=== PATIENT | female | born 1950 | race Caucasian/White ===

== ENCOUNTER 2021-12-25 12:33 | Outpatient (CLI) | payer MEDICARE, SELFPAY ==
[2021-12-28 16:06] LABS: B. pertussis IgA < 1.0 index (0.0-0.9); B. pertussis IgM 1.4 index (0.0-0.9)
== END 2021-12-25 23:59 | disposition home or self-care (01) ==
PROVIDERS: PCP Family Medicine; Referring Provider Internal Medicine Pulmonary Disease; Visit Provider Internal Medicine Pulmonary Disease
DX: J47.9 Bronchiectasis, uncomplicated (principal)
CPT/HCPCS: 36415

== ENCOUNTER 2022-02-14 14:12 | Emergency (ER) | payer MEDICARE, SELFPAY ==
[2022-02-14 14:13] VITALS: BP 121/73; PULSE 65; RESP 14; TEMP 36.5; O2SAT 99; BMI 22.9
--- NOTE | 2022-02-14 14:41 | EKG12_ITS ---
Test Reason : GEN ILLNESS Blood Pressure : / mmHG Vent. Rate : 059 BPM Atrial Rate : 059 BPM P-R Int : 168 ms QRS Dur : 080 ms QT Int : 422 ms P-R-T Axes : 070 038 060 degrees QTc Int : 417 ms Sinus bradycardia Otherwise normal ECG Confirmed by JAYY HILL, MARLIN ([id number]), film and video editor BONNIE KING ([id number]) on 02/16/2022 1:03:38 PM Referred By: TRISTEN Confirmed By:YOBANI HOPE MD
--- NOTE | 2022-02-14 14:49 | EX.ED.DYSGE1 ---
HPI <Dr. Martha Ray MD - Last Filed: 02/14/22 23:32> History of Present Illness Chief Complaint: General Illness <JAMAR NICHOLAS - Last Filed: 02/14/22 18:22> History of Present Illness Informant: patient Onset/Context/Timing Onset: Weeks (3) Timing: Continuous Narrative Narrative: Patient presents secondary to complaints of generalized weakness and cough. Patient states she finished one week course of Zithromax on February 01 for cough and fever. Patient states she last had a fever on February 02, and has since had night sweats. Patient reports sputum to be clearing from green/blood clots and now only intermittent with her cough. Patient has not noticed color recently. Patient denies chest pain, but states It feels funny. Weak. Patient otherwise complains of headache, sinus pressure, decreased appetite, diarrhea, and nausea. Patient took acetaminophen at 1400 for body aches. Patient took Immodium last night, and last loose stool last night. [facility] <Dr. Martha Ray MD - Last Filed: 02/14/22 23:32> [facility] Medical History (Updated 02/14/22 @ 18:[address] Martha Ray MD) Asthma Back pain Bronchiectasis Hypertension SVT (supraventricular tachycardia) Allergy/AdvReac Type Severity Reaction Status Date / Time levofloxacin [From Levaquin] Allergy Other Verified 02/14/22 14:16 thimerosal Allergy Anaphylaxis Verified 02/14/22 14:16 Surgical History (Updated 02/14/22 @ 15:04 by JAMAR NICHOLAS) H/O: hysterectomy Hx of tonsillectomy Social History (Updated 02/14/22 @ 15:04 by JAMAR NICHOLAS) Smoking Status: Never smoker alcohol intake: never substance use type: does not use <JAMAR NICHOLAS - Last Filed: 02/14/22 18:22> ROS ED Constitutional Constitutional ED: Reports sweats Eyes Eyes: Denies change in vision ENT ENT ED: Denies ear pain, rhinorrhea or sore throat Cardiovascular Cardiovascular: Reports other Details: Funny feeling,Just feels weak ; Denies chest pain Respiratory/Chest Respiratory/Chest: Reports cough and sputum Gastrointestinal Gastrointestinal: Reports diarrhea and nausea Genitourinary Genitourinary ED: Denies dysuria or hematuria Musculoskeletal Musculoskeletal: Denies arthralgias or myalgias Integumentary Denies rash Neurologic Neurologic: Reports headache(s) and weakness Psychiatric Psychiatric: Reports anxiety Endocrine Endocrinology: Denies polyuria EXAM <Dr. Martha Ray MD - Last Filed: 02/14/22 23:32> Physical Exam Const Vital Signs: 02/14/22 14:13 02/14/22 14:59 02/14/22 17:25 Temperature 97.7 F L Temperature Source Oral Pulse Rate 65 59 L 66 Respiratory Rate 14 16 15 Respiratory Pattern Normal Blood Pressure 121/73 H 150/72 H 144/69 H Blood Pressure Mean 89 98 94 Pulse Ox 99 98 98 Oxygen Delivery Method Room Air Room Air Room Air <JAMAR NICHOLAS - Last Filed: 02/14/22 18:22> Physical Exam Const Vital Signs: 02/14/22 14:13 02/14/22 14:59 02/14/22 17:25 Temperature 97.7 F L Temperature Source Oral Pulse Rate 65 59 L 66 Respiratory Rate 14 16 15 Respiratory Pattern Normal Blood Pressure 121/73 H 150/72 H 144/69 H Blood Pressure Mean 89 98 94 Pulse Ox 99 98 98 Oxygen Delivery Method Room Air Room Air Room Air Positive well nourished and well developed General Appearance ED: well developed HEENT Reports TM's clear and moist mucous membranes Negative for trauma or tenderness Tympanic Membrane ED: Yes TM's clear Eyes PERRL and EOMs intact bilaterally Neck no lymphadenopathy and supple Chest Wall inspection of chest normal and palpation of chest normal Resp normal respiratory effort and clear to auscultation bilaterally Cardio regular rate, regular rhythm and no murmurs GI normal to inspection, nondistended, normoactive bowel sounds Palpation: soft Back/Spine no CVA tenderness Extremity normal to inspection General Extremety ED: Negative for edema or tenderness General Extremity: Negative for edema Neuro oriented x3 and CN's II-XII intact bilaterally Sensorium / Orientation: alert Motor Exam: general weakness Psych mental status grossly normal Mood & Affect: anxious Skin no rashes or lesions noted MDM <Dr. Martha Ray MD - Last Filed: 02/14/22 23:32> MDM Lab Data Labs: Laboratory Results - last 24 hr 02/14/22 02/14/22 15:12 15:22 WBC 6.3 RBC 4.54 Hgb 14.4 Hct 38.4 MCV 84.6 MCH 31.7 MCHC 37.5 H RDW Std Deviation 35.8 RDW Coeff of Hernandez 11.8 Plt Count 286 MPV 8.5 Immature Gran % (Auto) 0.800 Neut % (Auto) 71.0 H Lymph % (Auto) 17.6 L Brewster % (Auto) 9.8 Eos % (Auto) 0.6 Baso % (Auto) 0.2 Absolute Neuts (auto) 4.5 Absolute Lymphs (auto) 1.11 Nucleated RBC % 0 Sodium 128 L Potassium 3.6 Chloride 94 L Carbon Dioxide 27.0 Anion Gap 7 BUN 8 Creatinine 0.58 Estim Creat Clear Calc 40.81 Est GFR (MDRD) Af Amer 133 Est GFR (MDRD) Non-Af 110 BUN/Creatinine Ratio 13.9 Glucose 101 Calcium 9.6 Troponin I High Sens < 3 L Radiography Chest X-Ray - ED: 1 View, Read by ED Physician and Chronic Changes Diagnostic Testing: Clinical Impression(s) from Imaging Studies Chest X-Ray 02/14/22 15:10 IMPRESSION: Hyperinflation. The lungs are clear. Electronically Signed: Sanket Barnard MD at 15:22 EDT , Chest CTA 02/14/22 16:50 IMPRESSION: No CTA demonstrated pulmonary embolism or arterial dissection. Electronically Signed: Ailin Day MD at 17:59 EDT Reading Location ID and State: [facility] / [place] , Service support , Treatment and Re-Evaluation Narrative: Patient seen and evaluated with [employer]ENO[employer] student. I personally interviewed and examined the patient. I was involved in all aspects of patient's orders, interpretation of results, and treatment. Patient presents with URI-like symptoms since mid January. She completed a course of Zithromax in late January. She reports her last fever was on February 02. She continues to have cough with occasional chest tightness and body aches. She does feel short of breath. She reports having COVID in November. She does report to me that she had dark brown sputum with some bright red blood recently. Patient sitting upright in bed no acute distress. She is nontoxic-appearing. Head and neck examination unremarkable. Heart is regular rate and rhythm. Lung sounds are clear. Abdomen is soft nontender. Neuro exam normal. Extremities emanation shows no significant calf tenderness or edema. EKG, chest x-ray, lab work obtained. In light of the patient having dyspnea with hemoptysis CTA of the chest was obtained. This reveals no evidence of PE or infiltrate. Patient will continue supportive care. She is to follow-up with her primary care physician. <JAMAR NICHOLAS - Last Filed: 02/14/22 18:22> MDM MDM Narrative Medical decision making narrative: Patient placed on cardiac rehabilitation specialist. CBC, BMP, rapid flu ordered. Chest x-ray also ordered Lab Data Attestation: I reviewed the patient's lab results. Labs: Laboratory Results - last 24 hr 02/14/22 02/14/22 15:12 15:22 WBC 6.3 RBC 4.54 Hgb 14.4 Hct 38.4 MCV 84.6 MCH 31.7 MCHC 37.5 H RDW Std Deviation 35.8 RDW Coeff of Hernandez 11.8 Plt Count 286 MPV 8.5 Immature Gran % (Auto) 0.800 Neut % (Auto) 71.0 H Lymph % (Auto) 17.6 L Brewster % (Auto) 9.8 Eos % (Auto) 0.6 Baso % (Auto) 0.2 Absolute Neuts (auto) 4.5 Absolute Lymphs (auto) 1.11 Nucleated RBC % 0 Sodium 128 L Potassium 3.6 Chloride 94 L Carbon Dioxide 27.0 Anion Gap 7 BUN 8 Creatinine 0.58 Estim Creat Clear Calc 40.81 Est GFR (MDRD) Af Amer 133 Est GFR (MDRD) Non-Af 110 BUN/Creatinine Ratio 13.9 Glucose 101 Calcium 9.6 Troponin I High Sens < 3 L Radiography Chest X-Ray - ED: 1 View and No Infiltrates Diagnostic Testing: Clinical Impression(s) from Imaging Studies Chest X-Ray 02/14/22 15:10 IMPRESSION: Hyperinflation. The lungs are clear. Electronically Signed: Sanket Barnard MD at 15:22 EDT , Chest CTA 02/14/22 16:50 IMPRESSION: No CTA demonstrated pulmonary embolism or arterial dissection. Electronically Signed: Ailin Day MD at 17:59 EDT Reading Location ID and State: [address] [place] [address] , Service support , EKG Initial EKG: Attestation: I personally reviewed and interpreted this EKG as follows: Interpretation: Sinus Bradycardia (Rate of 59 without any signs of ischemia.) Discharge Plan Triage Chief Complaint: General Illness ED Provider: Martha Ray Dx/Rx/DC Orders Clinical Impression: Viral syndrome Instructions: ED Viral Syndrome (Adult) Primary Care Provider: Jose Espinal Referrals: Jose Espinal MD [Primary Care Provider] - 1-2 Weeks Disposition Disposition: Home, Self Care Discharge Date/Time: 02/14/22 18:35
--- NOTE | 2022-02-14 14:52 | NURSING ---
NO OLD EKGS
[2022-02-14 14:59] VITALS: BP 150/72; PULSE 59; RESP 16; O2SAT 98
--- NOTE | 2022-02-14 15:10 | RAD_ITS ---
STUDY: X-RAY CHEST REASON FOR EXAM: Female, 71 years old. Cough; chest burning TECHNIQUE: Single AP portable view of the chest. COMPARISON: None. FINDINGS: EKG electrodes are seen. Hyperinflation. The lungs are clear. There is no demonstrated pleural abnormality. Normal size heart. Normal mediastinum and rhonda. Normal visualized pulmonary arteries. Normal visualized aortic arch and descending thoracic aorta. There are diffuse degenerative changes of the visualized thoracic spine. Normal visualized ribs, clavicles, and shoulders. There is no demonstrated abnormality of the visualized soft tissue structures of the upper abdomen. RAD/Chest 1 View (Portable) IMPRESSION: Hyperinflation. The lungs are clear. Electronically Signed: Sanket Barnard MD at 15:22 EDT ,
[2022-02-14] MEDS: 0.9% Normal Saline 1,000 ML 150 ML IV (15:31)
[2022-02-14 15:33] LABS: Absolute Lymphocyte Count 1.11 X10^3/uL (0.83-4.51); Absolute Neutrophil Count 4.5 X10^3/uL (2.0-7.7); Basophil# 0.01 X10^3/uL; Basophil% 0.2 % (0-1); Eosinophil# 0.04 X10^3/uL; Eosinophils% 0.6 % (0-5); Hematocrit 38.4 % (37-47); Hemoglobin 14.4 g/dL (12.0-15.0); Lymphocyte # 1.11 X10^3/ul (0.83-4.51); Lymphocyte % 17.6 % (19-41); Mean Corp Hgb Conc 37.5 g/dL (32-36); Mean Corpuscular Hgb 31.7 pg (27.0-32.0); Mean Corpuscular Volume 84.6 fL (81-99); Mean Platelet Vol. 8.5 fl (6.2-12.0); Monocyte# 0.62 X10^3/uL; Monocyte% 9.8 % (0-10); NRBC Flagged by Analyzer 0 % (0-5); Neutrophil # 4.47 X10^3/uL (2.7-7.7); Platelet Count 286 K/mm3 (150-450); RBC Distribution Width CV 11.8 % (11.6-14.6); RBC Distribution Width SD 35.8 fl (35.1-43.9); Red Blood Count 4.54 M/mm3 (4.2-5.4); White Blood Count 6.3 K/mm3 (4.4-11.0)
[2022-02-14 15:45] LABS: Anion Gap 7 (5-15); BUN 8 mg/dL (7-18); BUN/Creat Ratio 13.9 RATIO (10-20); Calcium,Total 9.6 mg/dL (8.5-10.1); Chloride 94 mmol/L (98-107); Creatinine, Serum 0.58 mg/dL (0.55-1.02); EST Glomerular Filtration Rate 110 mL/min (>60); Est Glom Filt Rate - Afr Amer 133 mL/min (>60); Estimated Creatinine Clearance 40.81 ml/min; Glucose 101 mg/dL (74-106); Potassium 3.6 mmol/L (3.5-5.1); Sodium Level 128 mmol/L (136-145); Troponin-I HS < 3 pg/mL (3.0-54.0)
--- NOTE | 2022-02-14 16:50 | CT_ITS ---
STUDY: CTA CHEST REASON FOR EXAM: Female, 71 years old patient with hemoptysis. RADIATION DOSAGE (If Supplied By Facility): CTDIvol = ( 4.96 ) mGy, DLP = ( 147.30 ) mGycm TECHNIQUE: The examination was performed with the intravenous administration of 100 mL of Isovue-370. Post-processing of the angiographic images was performed, with multiplanar reformation and 3D reconstruction. Individualized dose optimization techniques were used for this CT. COMPARISON: Prior comparison studies are not available for review at this time. FINDINGS: Normal enhancement of the main pulmonary artery and right and left pulmonary arteries. Normal enhancement of the bilateral peripheral pulmonary arteries. There is no demonstrated pulmonary embolism. Normal thoracic aorta and visualized great vessels. There is no demonstrated aortic dissection. Normal heart and pericardium. There are calcifications of the coronary arteries. Normal mediastinum. Normal hilar regions. Normal visualized trachea and bronchi. The lungs are hyper expanded, with flattening of the hemidiaphragms. Normal pulmonary parenchyma. There appears to be bronchiectasis centrally. Normal pleura. Normal chest wall structures. There are degenerative changes of thoracic spine. The bones appear osteopenic. Normal visualized upper abdomen. CT/CTA Chest W/WO Contrast IMPRESSION: No CTA demonstrated pulmonary embolism or arterial dissection. Electronically Signed: Ailin Day MD at 17:59 EDT ,
[2022-02-14 17:25] VITALS: BP 144/69; PULSE 66; RESP 15; O2SAT 98
== END 2022-02-14 18:35 | disposition home or self-care (01) ==
PROVIDERS: Emergency Provider Emergency Medicine; PCP Family Medicine; Visit Provider Emergency Medicine
DX: B34.9 Viral infection, unspecified (principal); R11.0 Nausea; R19.7 Diarrhea, unspecified; R51.9 Headache, unspecified; I10 Essential (primary) hypertension
CPT/HCPCS: 71045; 71275; 80048; 84484; 85025; 87804; 93005; 96360; 96361; 99283; J7030

== ENCOUNTER → 2022-08-04 | Outpatient (CLI) | payer MEDICARE, SELFPAY ==
--- NOTE | 2022-08-04 09:54 | CT_ITS ---
EXAM: CT THORACIC SPINE WITHOUT INTRAVENOUS CONTRAST CLINICAL INDICATION: CLOSED FX TECHNIQUE: Helically acquired images were obtained of the thoracic spine without intravenous contrast. 2D reformats were reviewed. This CT exam was performed using one or more of the following dose reduction techniques: automated exposure control, adjustment of the mA and/or kV according to patient size, and/or use of iterative reconstruction technique. This report was created using [employer] report generation technology. RADIATION DOSE: CTDIvol = 18.42 mGy, DLP = 682.5 mGy-cm COMPARISON: None. FINDINGS: VERTEBRAE: Age indeterminate compression deformity of T2. T7-T10: There is endplate spondylosis of the vertebral body. Loss of intervertebral disc height. DISCS/SPINAL CANAL/NEURAL FORAMINA: Mild degenerative findings in the lower thoracic spine. VASCULATURE: Visualized thoracic aorta is not dilated. LYMPH NODES: Unremarkable. No retroperitoneal adenopathy. LUNGS AND PLEURAL SPACES: Unremarkable as visualized. No mass. No consolidation or edema. No pleural effusion or thickening. No pneumothorax. CT/Spine Thoracic without Contras IMPRESSION: 1. Mild degenerative findings in the lower thoracic spine. 2. There are compression deformities of T2. These are age-indeterminate. MRI could further evaluate if of concern. Electronically Signed: Emil Denis MD at 21:03 EDT ,
== END | disposition home or self-care (01) ==
LOC: CT 09:51
PROVIDERS: PCP Nurse Practitioner
DX: S22.019 Unspecified fracture of first thoracic vertebra (principal)
CPT/HCPCS: 72128

== ENCOUNTER → 2022-09-11 | Outpatient (CLI) | payer MEDICARE, SELFPAY ==
--- NOTE | 2022-09-11 16:45 | MRI_ITS ---
STUDY: MRI CERVICAL SPINE WITHOUT CONTRAST REASON FOR EXAM: Female, 71 years old. CLOSED fracture T1 on 06/02/2022. Ongoing pain and paresthesias. TECHNIQUE: Standardized fat and water weighted pulse sequences were obtained in the sagittal and axial planes. COMPARISON: None FINDINGS: Normal foramen magnum and brainstem-cervical cord junction. Normal craniovertebral junction. Normal anterior atlantoaxial articulation. Normal odontoid process. 5 mm C3-4 anterolisthesis. Slight stepwise retrolisthesis from C4-5 to C6-7. Slight anterolisthesis of C7-T1. Normal vertebral bodies and posterior osseous elements. No abnormal STIR signal in the T1 vertebral body. C2-3: Disc bulge. Normal central canal and intervertebral neural foramina. C3-4: Disc uncovering and bulge with ligamentum flavum redundancy. Mild spinal canal stenosis. Bilateral facet arthrosis with mild right and moderate left neural foraminal stenosis. C4-5: Disc bulge. Uncovertebral hypertrophy with mild bilateral neural foraminal stenosis. No significant spinal canal stenosis. C5-6: Disc bulge. Uncovertebral hypertrophy and mild bilateral neural foraminal stenosis. No significant spinal canal stenosis. C6-7: Disc bulge and ligamentum flavum redundancy. Mild spinal canal stenosis. Normal intervertebral neural foramina. C7-T1: Disc bulge. Uncovertebral hypertrophy with mild right and moderate left neural foraminal stenosis. No spinal canal stenosis. Normal cervical cord. There is no demonstrated cervical cord injury. No prevertebral soft tissue swelling or fluid. The anterior longitudinal ligament, posterior longitudinal ligament, ligamentum flavum appear intact. MRI/Spine Cervical (Routine) IMPRESSION: 1. No finding of T1 vertebral body edema or surrounding soft tissue injury. 2. 5 mm anterolisthesis of C3 on C4. 3. Extensive degenerative change detailed above, including multilevel neural foraminal stenosis. Electronically Signed: Kishor Gautam MD at 7:50 EST ,
== END | disposition home or self-care (01) ==
PROVIDERS: PCP Family Medicine
DX: S22.019 Unspecified fracture of first thoracic vertebra (principal)
CPT/HCPCS: 72141

== ENCOUNTER → 2022-10-10 | Outpatient (CLI) | payer MEDICARE, SELFPAY ==
--- NOTE | 2022-10-10 11:27 | RAD_ITS ---
EXAM: XR CERVICAL SPINE, 4 OR 5 VIEWS CLINICAL INDICATION: CLOSED FX TECHNIQUE: Frontal, lateral and bilateral oblique views of the cervical spine. This report was created using [employer] report Attention Point technology. COMPARISON: MRI of the cervical spine dated 09/23/2022. FINDINGS: VERTEBRAE: There is a 6 mm anterior spondylolisthesis of C3 on C4 which is stable from the reference exam. Preserved vertebral body height. No acute fracture. Preservation of the normal cervical lordosis. No significant facet arthropathy. DISC SPACES: There are severe degenerative changes with disc space narrowing at C4-5, C5-6 and C6-7 is also stable. SOFT TISSUES: Unremarkable. No prevertebral soft tissue widening. LUNG APICES: Clear. RAD/Cerv Spine 4 or 5 Views IMPRESSION: 1. No acute osseous abnormalities. 2. Anterior spondylolisthesis of C3 on C4 which is stable. There are degenerative changes with disc space narrowing. Electronically Signed: Catalino Corral MD at 17:39 EST ,
--- NOTE | 2022-10-10 11:28 | RAD_ITS ---
EXAM: XR LUMBOSACRAL SPINE COMPLETE WITH FLEXION/EXTENSION, 6 OR MORE VIEWS CLINICAL INDICATION: CLOSED FX TECHNIQUE: Lateral, frontal, oblique and lateral flexion/extension views of the lumbar spine and sacrum. This report was created using [employer] report [employer] Cluster technology. COMPARISON: None. FINDINGS: VERTEBRAE: There is a scoliotic deformity of the mid lumbar spine. Preserved vertebral body height. No fracture. No spondylolisthesis. No significant facet arthropathy. DISC SPACES: There is disc space narrowing from L1 through L5. GASTROINTESTINAL TRACT: Unremarkable as visualized. Included bowel gas pattern is non-obstructive. RAD/L/S Spine Comp/w Bending Views IMPRESSION: 1. No acute osseous abnormalities. 2. Severe degenerative changes with scoliotic deformity of the lumbar spine as well as disc space narrowing. Electronically Signed: Catalino Corral MD at 17:40 EST ,
== END | disposition home or self-care (01) ==
LOC: RAD 11:24
PROVIDERS: PCP Family Medicine
DX: S22.019 Unspecified fracture of first thoracic vertebra (principal); M51.37 Other intervertebral disc degeneration, lumbosacral region; M41.9 Scoliosis, unspecified
CPT/HCPCS: 72050; 72114

== ENCOUNTER → 2023-02-22 | Outpatient (CLI) | payer MEDICARE, SELFPAY ==
[2023-02-25 16:09] LABS: IgG, Quant 626 mg/dL (586-1602); Immunoglobulin G, Subclass 1 354 mg/dL (248-810); Immunoglobulin G, Subclass 2 163 mg/dL (130-555); Immunoglobulin G, Subclass 3 47 mg/dL (15-102); Immunoglobulin G, Subclass 4 29 mg/dL (2-96)
== END | disposition home or self-care (01) ==
PROVIDERS: PCP Family Medicine; Referring Provider Internal Medicine; Visit Provider Internal Medicine
DX: J32.9 Chronic sinusitis, unspecified (principal); J47.9 Bronchiectasis, uncomplicated
CPT/HCPCS: 36415; 82784; 82787; 87070; 87205

== ENCOUNTER → 2023-03-01 | Outpatient (CLI) | payer MEDICARE, SELFPAY ==
--- NOTE | 2023-03-01 13:39 | CT_ITS ---
STUDY: CT FACIAL BONES WITHOUT CONTRAST REASON FOR EXAM: Female, 72 years old. Chronic recurrent purulent sinusitis, multiple abx RADIATION DOSAGE (If Supplied By Facility): CTDIvol = ( 33.06 ) mGy, DLP = ( 858.64 ) mGycm TECHNIQUE: The patient was scanned in a multi detector CT scanner. Sagittal and coronal images were reconstructed. Individualized dose optimization techniques were used for this CT. COMPARISON: None. FINDINGS: Normal soft tissue structures. Normal orbital crisostomo and orbital contents. Normal nasal bones and anterior nasal spine. Normal facial bones. There is no demonstrated fracture. Normal visualized paranasal sinuses. CT/Sinus/Facial Bone IMPRESSION: Normal unenhanced CT of the facial bones. Electronically Signed: Sanket Barnard MD at 15:09 EDT ,
--- NOTE | 2023-03-01 14:00 | RAD_ITS ---
STUDY: X-RAY - CERVICAL SPINE REASON FOR EXAM: Female, 72 years old. INCREASED BACK PAIN -- FLEX/ EXT/ AP LAT TECHNIQUE: 4 view(s) of the cervical spine were obtained including flexion and extension views.. COMPARISON: Comparison is made with prior study dated October 10, 2022. FINDINGS: Normal anterior atlantoaxial articulation. Normal odontoid process. There is straightening of the normal cervical lordosis. Marked degree of disc space narrowing and spondylosis at the C4-C5, C5-C6 and C6-C7 levels. Stable anterior listhesis of C3 on C4. Normal visualized intervertebral neuroforamina. There are atherosclerotic vascular calcifications of the carotid arteries. RAD/Cerv Spine 4 or 5 Views IMPRESSION: Marked degree of disc space narrowing and spondylosis at the C4-C5, C5-C6 and C6-C7 levels. Stable anterior listhesis of C3 on C4. Electronically Signed: Sanket Barnard MD at 8:46 EDT ,
--- NOTE | 2023-03-01 14:00 | RAD_ITS ---
STUDY: X-RAY - THORACIC SPINE REASON FOR EXAM: Female, 72 years old. Closed fracture TECHNIQUE: 3 view(s) of the thoracic spine were obtained. COMPARISON: None. FINDINGS: There is straightening of the normal thoracic kyphosis. Mild dextroscoliosis at the thoracic lumbar junction. Levoconvex scoliosis of the lumbar spine. There is demineralization of the thoracic spine. There is multilevel disc space narrowing of the thoracic spine. Focal calcification in the right upper quadrant most likely calcified gallstone. RAD/Thoracic Spine 3 Views IMPRESSION: Loss of the normal thoracic kyphosis. Scoliosis. Electronically Signed: Sankte Barnard MD at 8:45 EDT ,
== END | disposition home or self-care (01) ==
PROVIDERS: PCP Family Medicine; Referring Provider Internal Medicine
DX: S22.019 Unspecified fracture of first thoracic vertebra (principal); M50.30 Other cervical disc degeneration, unspecified cervical region
CPT/HCPCS: 70486; 72050; 72072

== ENCOUNTER → 2023-04-18 | Outpatient (CLI) | payer MEDICARE, SELFPAY ==
--- NOTE | 2023-04-22 07:11 | PFT ---
INTRODUCTION: The patient is a 72-year-old female that presents for pulmonary function studies secondary to a diagnosis of chronic bronchitis. Respiratory therapy reported good patient effort. Bronchodilators were used during testing. INTERPRETATION: Forced expiration spirometry demonstrates no evidence of a large airways obstructive ventilatory defect. There was no significant response to aerosolized bronchodilators. Spirograms are of good quality and plateau normally. The respiratory flow-volume loop is normal. Body plethysmography was performed and revealed lung volumes to be within normal limits. Diffusing capacity by single breath CO was within normal limits. IMPRESSION: Grossly normal pulmonary function studies.
== END | disposition home or self-care (01) ==
LOC: PSN 13:02
PROVIDERS: PCP Family Medicine; Referring Provider Internal Medicine; Visit Provider Internal Medicine
DX: J41.1 Mucopurulent chronic bronchitis (principal)
CPT/HCPCS: 94060; 94726; 94729

== ENCOUNTER → 2024-02-29 | Outpatient (CLI) | payer MEDICARE, SELFPAY ==
[2024-02-29 10:42] LABS: Absolute Lymphocyte Count 1.52 X10^3/uL (0.83-4.51); Absolute Neutrophil Count 3.3 X10^3/uL (2.0-7.7); Basophil# 0.03 X10^3/uL; Basophil% 0.5 % (0-1); Eosinophil# 0.48 X10^3/uL; Hematocrit 40.7 % (37-47); Hemoglobin 13.5 g/dL (12.0-15.0); Lymphocyte # 1.52 X10^3/ul (0.83-4.51); Lymphocyte % 25.4 % (19-41); Mean Corp Hgb Conc 33.2 g/dL (32-36); Mean Corpuscular Hgb 31.1 pg (27.0-32.0); Mean Corpuscular Volume 93.8 fL (81-99); Mean Platelet Vol. 9.3 fl (6.2-12.0); Monocyte# 0.62 X10^3/uL; Monocyte% 10.4 % (0-10); NRBC Flagged by Analyzer 0 % (0-5); Neutrophil # 3.32 X10^3/uL (2.7-7.7); Neutrophil % 55.4 % (47-70); Platelet Count 218 K/mm3 (150-450); RBC Distribution Width CV 12.7 % (11.6-14.6); RBC Distribution Width SD 43.7 fl (35.1-43.9); Red Blood Count 4.34 M/mm3 (4.2-5.4)
[2024-02-29 11:29] LABS: ALB/GLOB Ratio 1.1 RATIO (0.9-2.4); AST(SGOT) 19 U/L (15-37); Alanine Aminotransfer ALT/SGPT 19 U/L (13-56); Albumin, Serum 3.6 g/dL (3.2-5.0); Alkaline Phosphatase 52 U/L (45-117); Anion Gap 5 (5-15); BUN 14 mg/dL (7-18); BUN/Creat Ratio 16.5 RATIO (10-20); Calcium,Total 9.6 mg/dL (8.5-10.1); Chloride 101 mmol/L (98-107); Cholesterol 215 mg/dL (200); Creatinine, Serum 0.85 mg/dL (0.55-1.02); EST Glomerular Filtration Rate 70 mL/min (>60); Est Glom Filt Rate - Afr Amer 85 mL/min (>60); Globulin 3.4 g/dL (2.2-4.2); Glucose 92 mg/dL (74-106); High Density Lipoprotein 88 mg/dL; Potassium 3.9 mmol/L (3.5-5.1); Sodium Level 134 mmol/L (136-145); Thyroid Stim Hormone (TSH) 2.41 uIU/mL (0.358-3.74); Triglycerides 150 mg/dL; Very Low Density Lipoprotein 30 mg/dL (5-40)
== END | disposition home or self-care (01) ==
LOC: LAB 10:11
PROVIDERS: PCP Family Medicine; Referring Provider Family Medicine; Visit Provider Family Medicine
DX: J32.9 Chronic sinusitis, unspecified (principal); M79.7 Fibromyalgia; N95.1 Menopausal and female climacteric states; I10 Essential (primary) hypertension; J45.909 Unspecified asthma, uncomplicated
CPT/HCPCS: 36415; 80053; 80061; 84443; 85025

== ENCOUNTER 2025-10-28 09:59 | Observation (INO) | payer MEDICARE, SELFPAY ==
[2025-10-28] VITALS (12 sets, daily range): BP systolic 106–139; BP diastolic 52–66; PULSE 60–76; RESP 16–18; TEMP 36.3–36.9; O2SAT 97–100; BMI 27.1
--- NOTE | 2025-10-28 10:13 | EX.ED.DYSGE1 ---
HPI History of Present Illness Chief Complaint: Abd Pain Detail of Chief Complaint: Right lower quadrant abdominal pain Informant: patient and family Onset/Context/Timing Onset: Today (Abdominal pain started last evening) and Yesterday (Nausea started yesterday afternoon) Context: Gradual Onset Timing: Continuous Quality: Pain Location: Points to McBurney's point Current Severity: Mild Maximum Severity: Severe Worsened by: Walking Relieved by: Nothing Associated Symptoms Associated Symptoms: Loss of appetite, nausea, also has mild urinary symptoms Narrative Narrative: Patient is a 74-year-old woman. She presents because of nausea that started yesterday. She had no appetite. She states she normally has breakfast did not have breakfast this morning. She points to proximity of McBurney's point. She has had some upper respiratory like symptoms that started several days ago. She also complains of myalgias arthralgias. It is slightly worse than her baseline since she reports she has history of fibromyalgia. She denies fever or chills. She does endorse urgency and frequency without hematuria and endorses slight discomfort with urination. Patient denies any food intolerance. Patient denies history of renal ureterolithiasis. Patient denies flank pain. Daughter states that her mother complained of the pain being significant worse this morning. Prior similar symptoms: No Recent Illness/Hospitalization: No PFSH PFSH Medical History Chronic bronchitis with productive mucopurulent cough Chronic sinusitis Asthma Hypertension Back pain SVT (supraventricular tachycardia) Home Medications ?Medication ?Instructions ?Recorded ?Last Taken ?Type albuterol sulfate 90 mcg/actuation 2 puff inhalation Q6H PRN 02/13/23 Unknown History aerosol inhaler amlodipine 10 mg tablet 10 mg PO DAILY 02/13/23 Unknown History conjugated estrogens 1.25 mg 1.25 mg PO .QO 02/13/23 Unknown History tablet (Premarin) hydrocodone-acetaminophen 5-325mg 1 tab PO Q6H PRN 02/13/23 Unknown History 5mg-325mg ipratropium 0.5 mg-albuterol 3 mg 3 ml inhalation Q6H PRN 02/13/23 Unknown History (2.5 mg base)/3 mL nebulization soln ipratropium bromide 21 mcg (0.03 2 spray intranasal BID-TID PRN 02/13/23 Unknown Rx %) nasal spray sinus symptoms #30 mL isosorbide mononitrate 60 mg 60 mg PO BID 02/13/23 Unknown History tablet,extended release 24 hr metoprolol tartrate 25 mg tablet 25 mg PO DAILY 02/13/23 Unknown History potassium chloride 20 mEq 20 meq PO DAILY 02/13/23 Unknown History tablet,extended release propafenone 150 mg tablet 75 mg PO Q8H 02/13/23 Unknown History triamterene 37.5 1 cap PO DAILY 02/13/23 Unknown History mg-hydrochlorothiazide 25 mg capsule Allergy/AdvReac Type Severity Reaction Status Date / Time ibuprofen Allergy Other Verified 10/28/25 10:02 levofloxacin (From Levaquin) Allergy Other Verified 10/28/25 10:02 Seasonal Allergies: Uncoded Allergy Other Verified 10/28/25 10:02 thimerosal Allergy Anaphylaxis Verified 10/28/25 10:02 lidocaine AdvReac Other Verified 10/28/25 10:02 Surgical History Hx of tonsillectomy H/O: hysterectomy Social History Smoking Status: Never smoker alcohol intake: never substance use type: does not use ROS ROS ED Constitutional Constitutional ED: Denies chills, fever(s), subjective or sweats Eyes Eyes: Denies change in vision ENT ENT ED: Reports rhinorrhea; Denies ear pain or sore throat Cardiovascular Cardiovascular: Denies chest pain or palpitations Respiratory/Chest Respiratory/Chest: Denies cough, dyspnea or dyspnea on exertion Gastrointestinal Gastrointestinal: Reports abdominal pain and nausea; Denies constipation, diarrhea, melena or vomiting Genitourinary Genitourinary ED: Reports dysuria and urinary frequency; Denies hematuria Musculoskeletal Musculoskeletal: Denies arthralgias, back pain or myalgias Integumentary Denies rash Neurologic Neurologic: Denies paresthesias or weakness Hematologic/Lymphatic Hematologic/Lymphatic: Reports systems reviewed and no addt'l complaints, except as documented EXAM Physical Exam Const Vital Signs: 10/28/25 10:00 10/28/25 11:29 10/28/25 11:35 Temperature 97.7 F L 98.4 F 98.4 F Temperature Source Oral Oral Pulse Rate 62 60 60 Respiratory Rate 16 16 16 Blood Pressure 139/62 H 132/53 H 132/53 H Blood Pressure Mean 87 79 79 Pulse Ox 98 98 98 Oxygen Delivery Method Room Air Room Air Positive well nourished and well developed Constitutional Narrative: Vital signs remarkable slight elevated blood pressure. Patient's temperature is normal. General Appearance ED: well developed and NAD HEENT HEENT Narrative: Head is atraumatic and normocephalic. Ears are normal. Nares patent. Eyes PERRL and EOMs intact bilaterally General Eye ED: Negative for pale conjunctiva or scleral icterus Neck no lymphadenopathy, supple and no JVD Neck Narrative: Trachea is midline. There is no dysphonia. Resp normal respiratory effort and clear to auscultation bilaterally Cardio regular rate, regular rhythm, S1 normal heart sound, S2 normal heart sound and no murmurs GI non-distended and no masses; Negative for normal to inspection, nondistended, normoactive bowel sounds, non-tender or hepatosplenomegaly Auscultation: hypoactive bowel sounds Palpation: soft, tender RLQ and Rovsing's sign and guarding RLQ Narrative: There is no inguinal lymphadenopathy or inguinal mass. There is no suprapubic tenderness. Extremity normal to inspection General Extremety ED: Negative for edema General Extremity: Negative for edema Neuro oriented x3 and CN's II-XII intact bilaterally Sensorium / Orientation: alert Psych mental status grossly normal Skin no rashes or lesions noted, no wounds and skin turgor normal MDM MDM MDM Narrative Medical decision making narrative: Differential diagnosis would include appendicitis, mesenteric adenitis, right-sided diverticulitis, atypical urinary tract infection, but the abrupt worsening need to consider perforation and ureterolithiasis with obstruction. To evaluate patient's symptoms and complaints a CBC, BMP UA was obtained. Because she has tenderness in the proximity McBurney's point with a positive Rovsing sign suspect her urinary symptoms are due to irritation of the bladder secondary to appendicitis. Will obtain CT of the abdomen pelvis with IV contrast. Patient received IV Zofran for her nausea and morphine for her pain. History & Record Review Additional record(s) reviewed:: Prior outpatient record (Patient was tested for alpha 1 antitrypsin deficiency. Her test was negative. There are also other outside pulmonary records available.) Lab Data Attestation: I reviewed the patient's lab results. Lab results narrative: CBC is remarkable elevated white count at 13.1 thousand with shift. Absolute neutrophil count is elevated. Electrolyte panel is unremarkable. Glucose is slightly elevated 104 with a normal CO2 anion gap. Labs: Laboratory Results - last 24 hr 10/28/25 10:12 WBC 13.1 H RBC 4.02 L Hgb 13.0 Hct 37.6 MCV 93.5 MCH 32.3 H MCHC 34.6 RDW Std Deviation 42.1 RDW Coeff of Hernandez 12.2 Plt Count 217 MPV 9.1 Immature Gran % (Auto) 0.500 Neut % (Auto) 79.2 H Lymph % (Auto) 9.6 L [place] % (Auto) 7.9 Eos % (Auto) 2.5 Baso % (Auto) 0.3 Absolute Neuts (auto) 10.4 H Absolute Lymphs (auto) 1.26 Nucleated RBC % 0 Sodium 136 Potassium 3.6 Chloride 97 Carbon Dioxide 26.2 Anion Gap 13 BUN 11 Creatinine 0.80 Estim Creat Clear Calc 55.50 Est GFR (MDRD) Non-Af 78 BUN/Creatinine Ratio 13.8 Glucose 104 H Calcium 10.0 Radiography Diagnostic Testing: Clinical Impression(s) from Imaging Studies Abdomen/Pelvis CT 10/28/25 11:20 IMPRESSION: The appendix is distended measures up to 1.7 cm in diameter and contains several at least 6 appendicoliths. These findings are consistent with acute appendicitis. No abscess formation. Colonic diverticulosis without evidence of acute diverticulitis. Reading Location: [facility] CT of the abdomen reveals acute appendicitis with multiple pendulous/stones. Case discussed with Dr. Florence. Plan is OR and IV Zosyn. Also obtain EKG for restratification. The CAT scan was interpreted by me at 1132. EKG Initial EKG: Attestation: I personally reviewed and interpreted this EKG as follows: Interpretation: Sinus Bradycardia (Rate is 57. [place] interval is 194 ms. Cures duration 84 ms. QT duration 4 and 34 Morty seconds. Willis is normal. My opinion the EKG is normal) Management Discussion w/another healthcare provider: Mechanical System Technician (Dr. Florence agreed CAT scan revealed acute appendicitis. Plan OR) Treatment and Re-Evaluation :: I was informed that patient was requesting more pain medicine. 4 mg of morphine was ordered at 1117. Discharge Plan Dx/Rx/DC Orders Clinical Impression: Acute appendicitis with generalized peritonitis, Hypertension, Leukocytosis, History of fibromyalgia, Sinus bradycardia by electrocardiogram Disposition Disposition: Acute Care Hospital [facility] Discharge Date/Time: 10/28/25 11:43
[2025-10-28] MEDS: 0.9% Normal Saline (1000mL) 1,000 ML 999 ML IV (10:20)
--- OUTSIDE RECORDS SUMMARY | 2025-10-28 10:30 | XMS RPT_ITS | CCD ---
Author Organization [facility] Care Team Providers Care Stitch Welder Name Role Phone TEDDY HILL, JUAN Mcgill Primary Care Physician Spencer HILL, Denny Talbert Primary Care Provider Older DIRECTOR OF FINANCIAL REPORTING, [place] Primary Care Provider SYSTEM, PROVIDER NOT IN Referring Unavaila ble SYSTEM, PROVIDER NOT IN Attending Unavaila ble OLDER, [place] Primary Care Unavailable OLDER, [place] Primary Care Unavailable SYSTEM, PROVIDER NOT IN Referring Unavaila ble SYSTEM, PROVIDER NOT IN Attending Unavaila ble TOMAS FIGUEROA Attending Unavailab le GHINDATOMAS Referring Unavailab le OLDER, [place] Primary Care Unavailable TOMAS FIGUEROA Referring Unavailab le OLDER, [place] Primary Care Unavailable TOMAS FIGUEROA Attending Unavailab le OSBALDO PEARL Attending Unavailabl e SYSTEM, PROVIDER NOT IN Primary Care Unavaila ble BELKIS MANCUSO Admitting Unavailab le TOMAS FIGUEROA Consulting Unavailab le EMERGENCY, TRIAGE PROTOCOL Admitting Unava ilable EMERGENCY, TRIAGE PROTOCOL Referring Unava ilable SYSTEM, PROVIDER NOT IN Primary Care Unavaila ble Older DIRECTOR OF FINANCIAL REPORTING, [place] Primary Care Provider [phone] Older DIRECTOR OF FINANCIAL REPORTING, [place] Primary Care Provider [phone] OLDER, [place] Primary Care Unavailable FAMILIA DUTTON Attending Unavailable OLDER, [place] Primary Care Unavailable FAMILIA DUTTON Attending Unavailable OLDER, [place] Primary Care Unavailable FAMILIA DUTTON Attending Unavailable OLDER, [place] Primary Care Unavailable TOMAS FIGUEROA Attending Unavailab le OLDER, [place] Primary Care Unavailable TOMAS FIGUEROA Attending Unavailab le OLDER, [place] Primary Care Unavailable TOMAS FIGUEROA Attending Unavailab le OLDER, [place] Primary Care Unavailable TOMAS FIGUEROA Attending Unavailab le OLDER, [place] Primary Care Unavailable TOMAS FIGUEROA Attending UnavailDr. Juan Dunlap Primary Care Provider Dr. Juan Alcantara Referring Provider [phone] Dr. Guillermo Mccullough Attending Provider Dr. Guillermo Mccullough Referring Provider Dr. Guillermo Mccullough Other Provider Dr. Eliazar Castano Attending Provider Denny Hitchcock MD Primary Care Provider Juan Alcantara Primary Care Unavailable Guillermo Mccullough Referring Unavailable Guillermo Mccullough Consulting Unavailable Eliazar Castano Attending Unavailable Teddy, Juan Primary Care Unavailable Guillermo Mccullough Referring Unavailable Guillermo Mccullough Attending Unavailable Juan Alcantara Referring Unavailable Juan Alcantara Attending Unavailable Teddy, Juan Primary Care Unavailable Juan Alcantara Referring Unavailable Ji FLOOR HELPER, Jalyn Attending Unavailable Teddy, Juan Primary Care Unavailable Teddy, Juan Primary Care Unavailable Jamel, Guillermo Cherry Attending Unavailable Juan Alcantara Referring Unavailable NGA HILL, TONJA Attending Unavailable JUAN ALCANTARA MD Primary Care Unavailable NGA HILL, TONJA Attending Unavailable JUAN ALCANTARA MD Primary Care Unavailable JUAN ALCANTARA MD Attending Unavailable JUAN ALCANTARA MD Primary Care Unavailable JUAN ALCANTARA MD Attending Unavailable JUAN ALCANTARA MD Primary Care Unavailable Denny Hitchcock MD Primary Care Provider [phone] Amena SPECIAL TECHNICAL OPERATIONS OFFICER.DIRECTOR OF FINANCIAL REPORTING, [place] M Unavailable JUAN ALCANTARA MD Attending Unavailable JUAN ALCANTARA MD Primary Care Unavailable JUAN ALCANTARA MD Attending Unavailable JUAN ALCANTARA MD Primary Care Unavailable Allergies Allergy Classification Reported Allergen(s) Allergy Type Date of Onset Reaction(s) Facility Adrenergic Agonists (1 source) EPINEPHrine; Translations: [epinephrine] Drug Allergy Tachycardia (finding) [facility] Lidocaine (1 source) Lidocaine; Translations: [lidocaine] Drug Allergy Tachycardia (finding) [facility] Quinolones (antibiotic) (1 source) levoFLOXacin; Translations: [levofloxacin] Drug Allergy Tendinitis (disorder) [facility] Thimerosal (1 source) Thimerosal; Translations: [thimerosal topical] Drug Allergy Swelling (morphologic abnormality), Itching (finding) [facility] Comment on above: Thimeresol (20 sources) levoFLOXacin; Translations: [levofloxacin] Drug Allergy 2 Tendinitis (disorder), Other: See Comments, Unknown, Other (See Comments) [facility] (20 sources) Thimerosal; Translations: [thimerosal topical] Drug Allergy 2 Swelling (morphologic abnormality), Itching (finding), Unknown, Hives, Itching, Swelling [facility] Comment on above: Thimeresol (12 sources) Benzodiazepine; Translations: [BENZODIAZEPINES ] Propensity to adverse reactions to drug 2 Other (See Comments) [facility] (8 sources) dilTIAZem; Translations: [DILTIAZEM HCL] Drug Allergy 2 GI Intolerance [facility] (8 sources) Estrogens, Conjugated (FDC); Translations: [CONJUGATED ESTROGENS] Drug Allergy 2 Other (See Comments) [facility] (8 sources) Famotidine; Translations: [FAMOTIDINE] Drug Allergy 2 GI Intolerance [facility] (8 sources) guaiFENesin; Translations: [GUAIFENESIN] Drug Allergy 2 Other (See Comments) [facility] (8 sources) Lisinopril; Translations: [LISINOPRIL] Drug Allergy 2 GI Intolerance [facility] (8 sources) Ct: Iodinated Contrast- Oral And Iv Dye; Translations: [CT: IODINATED CONTRAST- ORAL AND IV DYE] Propensity to adverse reactions to drug 2 Other (See Comments) [facility] (4 sources) Ibuprofen Drug Allergy [address] [facility] (8 sources) Lidocaine; Translations: [lidocaine] Drug Allergy 3 Tachycardia (finding) [facility] (5 sources) Seasonal Allergies: Uncoded; Translations: [Seasonal Allergies: Uncoded] Allergy to substance [address] [facility] (4 sources) EPINEPHrine; Translations: [epinephrine] Drug Allergy Tachycardia (finding) [facility] (1 source) Ibuprofen Drug Allergy [address] [facility] (1 source) levoFLOXacin Drug Allergy [address] [facility] (1 source) Lidocaine Drug Allergy [address] [facility] (1 source) Thimerosal Drug Allergy [address] [facility] Medications Current Medications Medication Drug Class(es) Dates Sig (Normalized) Sig (Original) 8 hr acetaminophen 650 mg extended release oral tablet (16 sources) take 2 tablets by mouth every eight hours as needed acetaminophen 650 mg CR tablet Take 1,300 mg by mouth three times daily as needed. Active take 2 tablets by mo uth every eight hours as needed for pain acetaminophen (TYLENOL ER) 650 MG CR tab let Take 2 (two) tablets (1,300 mg total) by mouth every 8 (eight) hours as needed for pain . 0 Active Comment on above: Take 1,300 mg by diana th three times daily as needed. acetaminophen 325 mg / HYDROcodone bitartrate 5 mg oral tablet (20 sources) Opioid Agonist Start: 5 End: 5 take 1 tablet by mouth every six hours [place] 325- 5 mg oral tablet Dose = 1 tab(s), Oral, q6hr, # 120 tab(s), 0 Refill(s), Pharmacy: [facility], Fibromyalgia Injury of cervical spine, 156.8, cm, 04/06/25 13:39:00 EDT, Height, 68.9, kg, 04/06/25 13:39:00 EDT, Dosing Weight Start Date: 04/06/25 Stop Date: 05/06/25 Status: Ordered Quantity: 120.0 Unit: tab(s) Repeat number: 1 Indications: Unspecified injury at unspecified level of cervical spinal cord, initial encounter; Fibromyalgia; Start: 10-08-2024 End: 11-07-2024 take 1 tablet by mouth every six hours [place] 325- 5 mg oral tablet Dose = 1 tab(s), Oral, q6hr, # 120 tab(s), 0 Refill(s), Pharmacy: [facility], Injury of cervical spine Fibromyalgia, 156.8, cm, 10/08/24 13:43:00 EST, Height, 66.8, kg, 10/08/24 13:43:00 EST, Dosing Weight Start Date: 10/08/24 Stop Date: 11/07/24 Status: Ordered Start: 04-09-2024 End: 05-09-2024 take 1 tablet by mouth every six hours [place] 325- 5 mg oral tablet Dose = 1 tab(s), Oral, q6hr, # 120 tab(s), 0 Refill(s), Pharmacy: [facility], Injury of cervical spine Fibromyalgia, 156.8, cm, 04/09/24 14:07:00 EDT, Height, 67.1, kg, 04/09/24 14:07:00 EDT, Dosing Weight Start Date: 04/09/24 Stop Date: 05/09/24 Status: Ordered Start: 07-30-2023 End: 09-26-2023 take 1 tablet by mouth every six hours [place] 325- 5 mg oral tablet Dose = 1 tab(s), Oral, q6hr, # 120 tab(s), 0 Refill(s), Pharmacy: [facility], Injury of cervical spine Fibromyalgia, 158, cm, 08/16/23 11:34:00 EDT, Height, 66.2, kg, 08/16/23 11:34:00 EDT, Dosing Weight Start Date: 08/27/23 Stop Date: 09/26/23 Status: Ordered Start: 02-13-2023 take 1 tablet by diana th every six hours Hydrocodone-Acetaminophen Active 1 TABLET PO EVERY 6 HOURS February 13, 2023 12:00am Start: 07-06-2022 End: 12-03-2022 take 1 tablet by mouth every eight hours as needed for pain HYDROcodone-acetaminophen (NORCO) 5-325 mg per tablet Indications: DDD (degenerative disc disease), lumbar , Chronic low back pain, unspecified back pain laterality, unspecified whether sciatica present , Lumbar radiculopathy Take 1 tablet by mouth every 8 hours as needed for pain for up to 30 days. Do not start before November 03, 2022. 90 tablet 11/03/2022 Active Start: 06-06-2022 End: 07-04-2022 take 1 tablet by mouth three times daily as needed for pain HYDROcodone-acetaminophen (NORCO) 5-325 mg per tablet TAKE 1 TABLET BY MOUTH THREE TIMES DAILY FOR 30 DAYS NEEDED FOR PAIN 0 06/06/2022 07/04/2022 Discontinued Start: 08-21-2021 End: 09-20-2021 take 1 tablet by mouth twice daily as needed for pain [place] 325- 5 mg oral tablet Dose = 1 tab(s), Oral, BID, PRN for pain, # 60 tab(s), 0 Refill(s), Pharmacy: [facility], Fibromyalgia, 160, cm, 08/16/21 14:45:00 EDT, Height, 60.5, kg, 08/16/21 14:45:00 EDT, Dosing Weight Start Date: 08/21/21 Stop Date: 09/20/21 Status: Ordered Start: 07-18-2021 End: 08-17-2021 take 1 tablet by mouth twice daily as needed for pain [place] 325- 5 mg oral tablet Dose = 1 tab(s), Oral, BID, PRN for pain, # 60 tab(s), 0 Refill(s), [facility] Fibromyalgia, 160, cm, 06/07/21 13:54:00 EDT, Height, 61.6, kg, 06/07/21 13:54:00 EDT, Dosing Weight Start Date: 07/18/21 Stop Date: 08/17/21 Status: Ordered take 1 tablet by diana th every four hours as needed for pain HYDROcodone-acetaminophen (NORCO) 5-325 mg per tablet Take 1 (one) tablet by mouth every 4 (four) hours as needed for pain Patient states she takes 1 tab 4x daily as needed. . 0 Active Comment on above: TAKE 1 TABLET BY DIANA TH THREE TIMES DAILY FOR 30 DAYS NEEDED FOR PAIN Take 1 tablet by diana th every 8 hours as needed for pain for up to 30 days. Take 1 tablet by diana th every 8 hours as needed for pain for up to 30 days. Do not start before August 05, 2022. Take 1 tablet by diana th every 8 hours as needed for pain for up to 30 days. Do not start before October 04, 2022. Take 1 tablet by diana th every 8 hours as needed for pain for up to 30 days. Do not start before September 04, 2022. Take 1 tablet by diana th every 8 hours as needed for pain for up to 30 days. Do not start before November 03, 2022. [id number] 200 actuat albuterol 0.09 mg/actuat metered dose inhaler (20 sources) beta2-Adrenergic Agonist Start: 02-13-2023 take 1 puff(s) by inhalation every six hours Albuterol Sulfate Active 2 PUFF INHALATION EVERY 6 HOURS February 13, 2023 12:00am albuterol HFA (P ROVENTIL HFA, VENTOLIN HFA) 90 mcg/actuation inhaler q 4 HR. Active take 2 puff(s) by in halation once daily as needed for wheezing albuterol 90 mcg/actuation inhaler Inhal e 2 (two) puffs daily as needed for wheezing . 0 Active Comment on above: q 4 HR. albuterol 0.833 mg/ml / ipratropium bromide 0.167 mg/ml inhalation solution (16 sources) Anticholinergic, beta2-Adrenergic Agonist Start: take 1 mL by inhalation every six hours Ipratropium-Albuter ol Active 3 ML INHALATION EVERY 6 HOURS February 13, 2023 12:00am Start: 07-21-2021 take 1 dose by inhal ation four times daily albuterol-ipratropium 2.5 mg-0.5 mg/3 mL inhalation solution Dose = 3 mL, Inhalation, QID, # 1,080 mL, 3 Refill(s), Pharmacy: [facility], 160, cm, 06/07/21 13:54:00 EDT, Height, kg, 06/07/21 13:54:00 EDT, Dosing Weight Start Date: 07/21/21 Status: Ordered Quantity: 1080.0 Unit: mL Repeat number: 4 Start: 07-21-2021 take 1 dose by inhal ation four times daily albuterol-ipratropium 2.5 mg-0.5 mg/3 mL inhalation solution Dose = 3 mL, Inhalation, QID, # 1,080 mL, 3 Refill(s), Pharmacy: [facility], 160, cm, 06/07/21 13:54:00 EDT, Height, kg, 06/07/21 13:54:00 EDT, Dosing Weight Start Date: 07/21/21 Status: Ordered Start: 07-21-2021 take 1 dose by inhal ation four times daily as needed ipratropium-albuteroL (DUO-NEB) 0.5-2.5 mg/3 ml nebulizer Inhale 1 Unspecified 4 (four) times a day as needed . 0 07/21/2021 Active albuterol MDI (90 mcg/inh) CFC free inhalation aerosol (7 sources) Start: 02-12-2025 End: 02-07-2026 take 2 puff(s) by inhalation every four hours as needed for wheezing albuterol MDI (90 mcg/inh) CFC free inhalation aerosol 2 puff(s), Inhalation, q4h, PRN as needed for wheezing, # 3 EA, 3 Refill(s), Pharmacy: [facility], Bronchitis, 156.8, cm, 01/07/25 13:29:00 EST, Height, kg, 01/07/25 13:29:00 EST, Dosing Weight Start Date: 02/12/25 Stop Date: 02/07/26 Status: Ordered Quantity: 3.0 Unit: EA Repeat number: 4 Indications: Bronchitis, not specified as acute or chronic; Start: 05-05-2024 End: 04-30-2025 take 2 puff(s) by inhalation every four hours as needed for wheezing albuterol MDI (90 mcg/inh) CFC free inhalation aerosol 2 puff(s), Inhalation, q4h, PRN as needed for wheezing, # 3 EA, 3 Refill(s), Bronchitis Start Date: 05/05/24 Stop Date: 04/30/25 Status: Ordered Start: 01-31-2022 End: 01-26-2023 take 2 puff(s) by inhalation every four hours as needed for wheezing albuterol MDI (90 mcg/inh) CFC free inhalation aerosol 2 puff(s), Inhalation, q4h, PRN as needed for wheezing, # 3 EA, 3 Refill(s), Bronchitis, 160.5, cm, 01/25/22 16:40:00 EDT, Height, kg, 01/25/22 16:31:00 EDT, Dosing Weight Start Date: 01/31/22 Stop Date: 01/26/23 Status: Ordered Start: 09-20-2020 End: 09-15-2021 take 2 puff(s) by inhalation every four hours as needed for wheezing albuterol MDI (90 mcg/inh) CFC free inhalation aerosol 2 puff(s), Inhalation, q4h, PRN as needed for wheezing, # 3 EA, 3 Refill(s), Bronchitis Start Date: 09/20/20 Stop Date: 09/15/21 Status: Ordered ALPRAZolam 1 mg oral tablet (2 sources) Benzodiazepine Start: 08-02-2021 End: 10-31-2021 ALPRAZolam 1 mg oral tablet Dose : 1 mg = 1 tab(s), Oral, TID, # 90 tab(s), 2 Refill(s), [facility]acy: [facility] Anxiety, generalized, 160, cm, 06/07/21 13:54:00 EDT, Height, 61.6, kg, 06/07/21 13:54:00 EDT, Dosing Weight Start Date: 08/02/21 Stop Date: 10/31/21 Status: Ordered amLODIPine 10 mg oral tablet (20 sources) Dihydropyridine Calcium Channel Patrick Start: 12-06-2020 Norvasc 10 mg oral tablet Dose : 10 mg = 1 tab(s), Oral, qDay, PT ASKS FOR THE [employer] [facility] PLEASE, # 90 tab(s), 1 Refill(s), Pharmacy: [facility], 156.8, cm, 01/07/25 13:29:00 EST, Height, kg, 01/07/25 13:29:00 EST, Dosing Weight Start Date: 02/09/25 Status: Ordered Quantity: 90.0 Unit: tab(s) Repeat number: 2 Comment on above: Take 10 mg by mouth once daily. amoxicillin 80 mg/ml / clavulanate 11.4 mg/ml oral suspension (5 sources) Penicillin-class Antibacterial Start: 04-06-2025 End: 04-16-2025 take 10 mL by mouth every twelve hours amoxicillin-clavul anate 400 mg-57 mg/5 mL oral liquid 10 mL, Oral, q12h, X 10 day(s), # 200 mL, 0 Refill(s), 04/16/25 2:27:00 PM EDT, Pharmacy: [facility], Fibromyalgia Inflammatory arthritis, 156.8, cm, 04/06/25 13:39:00 EDT, Height, 68.9, kg, 04/06/25 13:39:00 EDT, Dosing Weight Start Date: 04/06/25 Stop Date: 04/16/25 Status: Ordered Quantity: 200.0 Unit: mL Repeat number: 1 Indications: Fibromyalgia; Unspecified osteoarthritis, unspecified site; Start: 08-16-2023 End: 08-26-2023 take 1 tablet by mouth every twelve hours amoxicillin-clavulanate 875 mg-125 mg or al tablet 1 tab(s), Oral, q12h, X 10 day(s), # 20 tab(s), 0 Refill(s), 08/26/23 12:04:00 PM EDT, Pharmacy: [facility], Well adult exam Asthma, 158, cm, 08/16/23 11:34:00 EDT, Height, 66.2, kg, 08/16/23 11:34:00 EDT, Dosing Weight Start Date: 08/16/23 Stop Date: 08/26/23 Status: Ordered Start: 09-11-2022 take 1 tablet by diana th every twelve hours amoxicillin-clavulanate (AUGMENTIN) 500-125 mg per tablet Take 1 (one) tablet by mouth every 12 (twelve) hours . 0 09/11/2022 Active aspirin 81 mg delayed release oral tablet (7 sources) Platelet Aggregation Inhibitor, Nonsteroidal Anti-inflammatory Drug Start: 09-11-2022 aspirin 81 mg ora l delayed release tablet Dose : 81 mg = 1 tab(s), Oral, Every other day, 0 Refill(s) Start Date: 09/11/22 Status: Ordered aspirin 81 mg ca p Take by mouth . 0 Active calcium carbonate 1250 mg / cholecalciferol 200 unt oral tablet (20 sources) Vitamin D Start: 08-16-2020 calcium-carbon ate-vitamin D3 500 mg-5 mcg (200 unit) per tablet Take by mouth three times daily. 08/16/2020 Active Start: 08-16-2020 take 1 tablet by diana th once daily calcium (as carbonate)-vitamin D 500 mg-200 intl units oral tablet Dose = 1 tab(s), Oral, qDay, # 60 tab(s), 0 Refill(s) Start Date: 08/16/20 Status: Ordered Quantity: 60.0 Unit: tab(s) Repeat number: 1 Start: 08-16-2020 take 1 tablet by diana th once daily calcium (as carbonate)-vitamin D 500 mg-200 intl units oral tablet Dose = 1 tab(s), Oral, qDay, # 60 tab(s), 0 Refill(s) Start Date: 08/16/20 Status: Ordered Comment on above: Take by mouth three times daily. DME MISCellaneous (12 sources) Start: 02-15-2022 DME MISCellaneous Nebulizer tubing., # 1 EA, 0 Refill(s), 57.2 Start Date: 02/15/22 Status: Ordered Quantity: 1.0 Unit: EA Repeat number: 1 Start: 02-15-2022 DME MISCellane ous Nebulizer tubing., # 1 EA, 0 Refill(s), 57.2 Start Date: 02/15/22 Status: Ordered Start: 09-17-2020 DME MISCellane ous See Instructions, dispense one flutter valve; dx J42; to be used hourly while awake, # 1 EA, 0 Refill(s), Pharmacy: [facility], Chronic bronchitis, 160, cm, 09/17/20 9:09:00 EST, Height, 61, kg, 09/17/20 9:09:00 EST, Dosing Weight Start Date: 09/17/20 Status: Ordered Quantity: 1.0 Unit: EA Repeat number: 1 Indications: Unspecified chronic bronchitis; Start: 09-17-2020 DME MISCellane ous See Instructions, dispense one flutter valve; dx J42; to be used hourly while awake, # 1 EA, 0 Refill(s), Pharmacy: [facility], Chronic bronchitis, 160, cm, 09/17/20 9:09:00 EST, Height, 61, kg, 09/17/20 9:09:00 EST, Dosing Weight Start Date: 09/17/20 Status: Ordered doxycycline hyclate 100 mg oral capsule (1 source) Tetracycline-class Drug Start: 08-23-2021 End: 09-06-2021 Vibramycin 100 mg oral capsule Dose : 100 mg = 1 cap(s), Oral, BID, X 14 day(s), # 28 cap(s), 0 Refill(s), 09/06/21 17:51:00 EDT, Pharmacy: [facility], Bronchitis, 160, cm, 08/16/21 14:45:00 EDT, Height, 59.1, kg, 08/23/21 17:05:00 EDT, Dosing Weight Start Date: 08/23/21 Stop Date: 09/06/21 Status: Ordered estradiol 0.1 mg/ml vaginal cream (1 source) Estrogen Start: 09-02-2023 estradiol 0.1 mg/g vaginal cream Dose = 1 appl, Vaginal, Mon/Sat/Sat, 0 Refill(s) Start Date: 09/02/23 Status: Ordered Premarin (14 sources) Estrogen Start: 04-06-2025 Premarin Oral, qDay, 1.25 every other day, 0 Refill(s) Start Date: 04/06/25 Status: Ordered Repeat number: 1 Start: 07-09-2024 Premarin 0.625 mg/g vaginal cream with applicator See Instructions, gram(s) Vaginal qPM, 0 Refill(s) Start Date: 07/09/24 Status: Ordered Repeat number: 1 Start: 06-26-2024 Premarin 1.25 mg oral tablet Dose : 1.25 mg = 1 tab(s), Oral, qDay, fax script to [facility], # 84 tab(s), 3 Refill(s) Start Date: 06/26/24 Status: Ordered Quantity: 84.0 Unit: tab(s) Repeat number: 4 Start: 04-09-2024 Premarin 1.25 mg oral tablet Dose : 1.25 mg = 1 tab(s), Oral, qDay, # 30 tab(s), 0 Refill(s) Start Date: 04/09/24 Status: Ordered Start: 08-16-2023 Premarin 0.625 mg/g vaginal cream with applicator 1 gram(s), Vaginal, qPM, # 30 gram(s), 11 Refill(s), Atrophic vaginitis Start Date: 08/16/23 Status: Ordered Start: 02-13-2023 Conjugated Est rogens (Premarin) 1.25 mg tablet Active 1.25 MG PO .QO February 13, 2023 12:00am Start: 09-20-2020 Premarin 1.25 mg oral tablet Dose : 1.25 mg = 1 tab(s), Oral, qDay, # 90 tab(s), 3 Refill(s), Bronchitis Start Date: 09/20/20 Status: Ordered fluticasone propionate 0.05 mg/actuat metered dose nasal spray (5 sources) Corticosteroid Start: 08-16-2020 fluticasone propionate (FLONASE) 50 mcg/actuation nasal spray Instill into each nostril daily as needed . 0 08/16/2020 Active fluticasone proprionate NASAL 50 mcg/ spray (2 sources) Start: 08-16-2020 take 1 dose nasal route twice daily fluticasone proprionate NASAL 50 mcg/ spray Dose = 1 spray(s), Nostril, each, BID, 0 Refill(s) Start Date: 08/16/20 Status: Ordered gabapentin 300 mg oral capsule (1 source) Anti-epileptic Agent Start: 08-16-2021 End: 09-15-2021 gabapentin 300 mg oral capsule Dose : 300 mg = 1 cap(s), Oral, TID, take at bedtime x 3 days, then 2 times daily for 3 days, then 3 times daily if tolerated., # 90 cap(s), 0 Refill(s), [facility]acy: [facility], Left lumbar radiculopathy Osteoarthritis of lumbar spine, 16... Start Date: 08/16/21 Stop Date: 09/15/21 Status: Ordered 12 hr guaiFENesin 600 mg extended release oral tablet (5 sources) Start: 09-11-2022 take 1 tablet by mouth every hour Mucus Relief ER 600 mg 12 hr tablet Take 1 (one) tablet (600 mg total) by mouth every 12 (twelve) hours . 0 09/11/2022 Active Start: 09-20-2020 guaiFENesin 40 0 mg oral tablet Dose : 400 mg = 1 tab(s), Oral, q4h, PRN as needed for congestion, # 30 tab(s), 0 Refill(s) Start Date: 09/20/20 Status: Ordered hydroCHLOROthiazide 25 mg / triamterene 37.5 mg oral capsule (20 sources) Potassium-sparing Diuretic, Thiazide Diuretic Start: 02-13-2023 take 1 capsule by mouth once daily Triamterene-Hydrochlorothiazid Active 1 CAP PO DAILY February 13, 2023 12:00am Start: 04-20-2022 End: 07-19-2022 triamterene-hydroCHLOROthiaz duane (DYAZIDE) 37.5-25 mg per capsule Start: 07-25-2021 take 1 capsule by mouth once daily triamterene-hydroCHLOROthiazide (DYAZIDE ) 37.5-25 mg per capsule Take 1 capsule by mouth once daily. 90 capsule 3 07/23/2022 Active Comment on above: Take 1 capsule by mo [facility] once daily. ipratropium bromide 0.021 mg/actuat metered dose nasal spray (8 sources) Anticholinergic Start: take 42 ug nasal route twice daily ipratropium 21 mcg/inh (0.03%) nasal spray 42 mcg Dose = 2 spray(s), Nostril, each, BID, # 30 mL, 0 Refill(s) Start Date: 05/02/23 Status: Ordered Start: 02-13-2023 Ipratropium Br omide Active 2 SPRAY INTRANASAL 2 to 3 times per day February 13, 2023 12:00am administer into each nostril magnesium citrate 100 mg ora l tablet (2 sources) Start: 08-16-2021 magnesium citr ate 100 mg oral tablet See Instructions, 2 tabs as needed, 0 Refill(s) Start Date: 08/16/21 Status: Ordered melatonin 10 mg oral tablet (18 sources) Start: 11-30-2020 melatonin 10 m g oral tablet Dose : 10 mg = 1 tab(s), Oral, qHS, PRN as needed for insomnia, # 200 tab(s), 0 Refill(s) Start Date: 11/30/20 Status: Ordered Start: 11-30-2020 take 1.5 mg by mouth at bedtime as needed MELATONIN ORAL Take 1.5 mg by mouth at bedtime as needed . 0 11/30/2020 Active Melatonin 5 mg c ap Take 5 mg by mouth. Active Comment on above: Take 5 mg by mouth. metoprolol tartrate 25 mg oral tablet (20 sources) beta-Adrenergic Patrick Start: 08-15-2021 End: 08-02-2025 take 1 tablet by mouth twice daily metoprolol tartrate, short acting, (LOPRESSOR) 25 mg tablet Take 1 tablet by mouth twice daily. 180 tablet 3 07/26/2022 Active Start: 08-15-2021 End: 05-04-2023 take 25 mg by mouth once daily Metoprolol Tartrate Act casey 25 MG PO DAILY February 13, 2023 12:00am Comment on above: Take 25 mg by mouth. Take 1 tablet by diana th twice daily. Multivitamin preparation (7 sources) Start: 08-16-2020 take 1 tablet by mouth once daily Multivitamin Dose = 1 tab(s), Oral, Daily, 0 Refill(s) Start Date: 08/16/20 Status: Ordered Repeat number: 1 Start: 08-16-2020 take 1 tablet by diana th once daily Multivitamin Dose = 1 tab(s), Oral, Daily, 0 Refill(s) Start Date: 08/16/20 Status: Ordered nitroglycerin 0.4 mg sublingual tablet (20 sources) Nitrate Vasodilator Start: 05-26-2024 nitroglyce rin 0.4 mg sublingual tablet 0.4 mg Dose = 1 tab(s), Sublingual, q5min, PRN as needed for chest pain, not to exceed 3 doses/15 min--if pain persists, seek medical attention, # 100 tab(s), 0 Refill(s), Pharmacy: [id number], 156.8, cm, 04/09/24 14:07:00 EDT, Height, kg, 04/09/24 14:07:00 EDT, Dosing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 [address] Total Protein 7.0 G/dL Normal 6.4-8.2 [facility] Comment on above: Performed By: #### E SR, URIC, GFR, MG, LIPID, CBC, ANEU, FERR, TSH, VIDH, CMP, ADIFF, CRP, FT4 #### [place] [address] Urea nitrogen [Mass/Vol] 13 mg/dL Normal 7-18 [facility] Comment on above: Performed By: #### E SR, URIC, GFR, MG, LIPID, CBC, ANEU, FERR, TSH, VIDH, CMP, ADIFF, CRP, FT4 #### [place] [address] CRPon 10-08-2024 C-Reactive Protein 0.8 mg/dL High 0.0-0.3 [facility] Comment on above: Performed By: #### E SR, URIC, GFR, MG, LIPID, CBC, ANEU, FERR, TSH, VIDH, CMP, ADIFF, CRP, FT4 #### [address] [address] ESRon 10-08-2024 Erythrocyte Sed Rate 8 mm/hr Normal 0-30 [facility] Comment on above: Performed By: #### E SR, URIC, GFR, MG, LIPID, CBC, ANEU, FERR, TSH, VIDH, CMP, ADIFF, CRP, FT4 #### [address] [address] Kathleen 10-08-2024 Ferritin [Mass/Vol] 119.0 ng/mL Normal 8.0-252.0 [facility] Comment on above: Performed By: #### E SR, URIC, GFR, MG, LIPID, CBC, ANEU, FERR, TSH, VIDH, CMP, ADIFF, CRP, FT4 #### [facility] [address] [place], [place] [address] FT4on 10-08-2024 Free T4 [Mass/Vol] 1.14 ng/dL Normal 0.76-1.46 [facility] Comment on above: Performed By: #### E SR, URIC, GFR, MG, LIPID, CBC, ANEU, FERR, TSH, VIDH, CMP, ADIFF, CRP, FT4 #### [place] [id number] [place], [place] [address] LABORATORYOrdered By: SYSTEM SYSTEM on 10-08-2024 25-hydroxyvitamin D3 [Mass/Vol] 56.2 ng/mL Invalid Interpretation Code AO ADM SS Comment on above: Interpretive Data: I nterpretive Values Based on Total 25([place]) Vitamin D: Deficient <20 ng/mL Insufficient 20 - <30 ng/mL Sufficient 30-100 ng/mL Albumin BCP dye [Mass/Vol] 3.9 G/dL Normal 3.4 - 4.8 G/dL AO ADM SS Albumin/Globulin [Mass ratio] 1.3 {ratio} Normal 1.1 - 2.5 ratio AO ADM SS ALP [Catalytic activity/Vol] 65 U/L Normal 40 - 135 U/L AO ADM SS ALT With P-5'-P [Catalytic activity/Vol] 29 U/L Normal 14 - 59 U/L AO ADM SS AST With P-5'-P [Catalytic activity/Vol] 25 U/L Normal 10 - 40 U/L AO ADM SS Basophils (Bld) [#/Vol] 0.0 103/mcL Normal 0.0 - 0.2 10^3/mcL AO Workflow SS Basophils/100 WBC (Bld) 0.6 % Normal 0.0 - 2.5 % AO Workflow SS Bilirubin [Mass/Vol] 0.4 mg/dL Normal 0.2 - 1 .0 mg/dL AO ADM SS Comment on above: Interpretive Data: U se of this assay is not recommended for patients undergoing treatment with eltrombopag due to the potential for falsely elevated results. Calcium [Mass/Vol] 9.9 mg/dL Normal 8.4 - 10. 2 mg/dL AO ADM SS Chloride [Moles/Vol] 97 mmol/L Low 98 - 10 7 mmol/L AO ADM SS CO2 [Moles/Vol] 29 mmol/L Normal 23 - 31 mmol/L AO ADM SS Creatinine [Mass/Vol] 0.73 mg/dL Normal 0.55 - 1.02 mg/dL AO ADM SS Comment on above: Interpretive Data: T esting performed on Siemens Dimension EXL analyzer using a modified kinetic Kendra technique. CRP [Mass/Vol] 0.8 mg/dL High 0.0 - 0.3 mg/dL AO ADM SS Electrolyte Balance 10.0 mEq/L Normal 4.0 - 15 .0 mEq/L AO ADM SS Eosinophil, Absolute 0.4 103/mcL Normal 0.0 - 0 .7 10^3/mcL AO Workflow SS Eosinophils/100 WBC (Bld) 5.2 % Normal 0.0 - 7.0 % AO Workflow SS Erythrocyte distribution width (RBC) [Ratio] 13.4 % Normal 11.5 - 15.5 % AO Workflow SS Ferritin [Mass/Vol] 119.0 ng/mL Normal 8.0 - 252.0 ng/mL AO ADM SS Free T4 [Mass/Vol] 1.14 ng/dL Normal 0.76 - 1.46 ng/dL AO ADM SS GFR/1.73 sq M.predicted among blacks MDRD (S/P/Bld) [Vol rate/Area] 95 ml/min/1.73sqm Invalid Interpretation Code AO Chemistry S Comment on above: Interpretive Data: GFR Population mean for , Non- Americans Ages 20-29 = 116 mL/min/1.73 sq.m. Ages 30-39 = 107 mL/min/1.73 sq.m. Ages 40-49 = 99 mL/min/1.73 sq.m. Ages 50-59 = 93 mL/min/1.73 sq.m. Ages 60-69 = 85 mL/min/1.73 sq.m. Ages 70+ = 75 mL/min/1.73 sq.m. Chronic Kidney Disease: Less than 60 mL/min/1.73 square meters End Stage Renal Disease: Less than 15 mL/min/1.73 square meters GFR/1.73 sq M.predicted among non-blacks MDRD (S/P/Bld) [Vol rate/Area] 78 ml/min/1.73sqm Invalid Interpretation Code AO Chemistry S Comment on above: Interpretive Data: GFR Population mean for , Non- Americans Ages 20-29 = 116 mL/min/1.73 sq.m. Ages 30-39 = 107 mL/min/1.73 sq.m. Ages 40-49 = 99 mL/min/1.73 sq.m. Ages 50-59 = 93 mL/min/1.73 sq.m. Ages 60-69 = 85 mL/min/1.73 sq.m. Ages 70+ = 75 mL/min/1.73 sq.m. Chronic Kidney Disease: Less than 60 mL/min/1.73 square meters End Stage Renal Disease: Less than 15 mL/min/1.73 square meters Globulin 3.1 G/dL Invalid Interpretation Code AO ADM SS Glucose [Mass/Vol] 78 mg/dL Low 83 - 110 mg/dL AO ADM SS Hematocrit (Bld) [Volume fraction] 43.2 % Normal 34.0 - 46.0 % AO Workflow SS Hemoglobin (Bld) [Mass/Vol] 14.6 G/dL Normal 12.0 - 16.0 G/dL AO Workflow SS Lymphocytes (Bld) [#/Vol] 1.5 103/mcL Normal 0.9 - 4.3 10^3/mcL AO Workflow SS Lymphocytes/100 WBC (Bld) 20.7 % Normal 20.0 - 40.0 % AO Workflow SS Magnesium [Mass/Vol] 1.9 mg/dL Normal 1.8 - 2 .4 mg/dL AO ADM SS MCH (RBC) [Entitic mass] 32.7 pg Normal 27.0 - 33.0 pg AO Workflow SS MCHC 33.7 G/dL Normal 32.0 - 36.0 G/dL AO Workflow SS MCV (RBC) [Entitic vol] 96.9 fL Normal 80.0 - 99.0 fL AO Workflow SS Monocytes (Bld) [#/Vol] 0.7 103/mcL Normal 0.1 - 1.4 10^3/mcL AO Workflow SS Monocytes/100 WBC (Bld) 10.2 % Normal 2.0 - 13.0 % AO Workflow SS Neutrophils (Bld) [#/Vol] 4.5 103/mcL Normal 2.3 - 8.1 10^3/mcL AO Workflow SS Neutrophils/100 WBC (Bld) 63.3 % Normal 50.0 - 75.0 % AO Workflow SS Platelet mean volume (Bld) [Entitic vol] 8.2 fL Normal 6.6 - 10.5 fL AO Workflow SS Platelets (Bld) [#/Vol] 205 103/mcL Normal 150 - 450 10^3/mcL AO Workflow SS Potassium [Moles/Vol] 4.7 mmol/L Normal 3.5 - 5.1 mmol/L AO ADM SS Protein [Mass/Vol] 7.0 G/dL Normal 6.4 - 8.2 G/dL AO ADM SS RBC (Bld) [#/Vol] 4.46 106/mcL Normal 4.10 - 5.30 10^6/mcL AO Workflow SS Sodium [Moles/Vol] 136 mmol/L Normal 136 - 145 mmol/L AO ADM SS TSH Qn 1.07 m[IU]/L Normal 0.36 - 3.74 mcIU/mL AO ADM SS Urea nitrogen [Mass/Vol] 13 mg/dL Normal 7 - 18 mg/dL AO ADM SS Urea nitrogen/Creatinine [Mass ratio] 18 ratio Normal 7 - 27 ratio AO ADM SS Uric Acid Lvl 4.1 mg/dL Normal 2.6 - 6.2 mg/dL AO ADM SS WBC (Bld) [#/Vol] 7.1 103/mcL Normal 4.5 - 10.8 10^3/mcL AO Workflow SS LABORATORYOrdered By: Kaitlin Sheth on 10-08-2024 Cholesterol [Mass/Vol] 225 mg/dL High 0 - 200 mg/dL AO ADM SS Comment on above: Interpretive Data: C holesterol Reference Interval: Less than 200 Desirable 200-239 Borderline high risk 240 and above High risk Cholesterol in HDL [Mass/Vol] 93 mg/dL High 40 - 60 mg/dL AO ADM SS Cholesterol in LDL [Mass/Vol] 106 mg/dL Normal 0 - 130 mg/dL AO ADM SS Triglyceride [Mass/Vol] 128 mg/dL Normal 0 - 150 mg/dL AO ADM SS Comment on above: Interpretive Data: T riglyceride Reference Interval: Less than 150 Normal 150-199 Borderline high risk 200-499 High risk 500 or higher Very high risk LABORATORYOrdered By: Tien Martin on 10-08-2024 ESR Photometric method (Bld) [Velocity] 8 mm/hr Normal 0 - 30 mm/hr AO Man Heme SS LIPIDon 10-08-2024 Cholesterol [Mass/Vol] 225 mg/dL High 0-200 [facility] Comment on above: Result Comment: Chol esterol Reference Interval: Less than 200 Desirable 200-239 Borderline high risk 240 and above High risk Performed By: #### E SR, URIC, GFR, MG, LIPID, CBC, ANEU, FERR, TSH, VIDH, CMP, ADIFF, CRP, FT4 #### [address] [address] Cholesterol in HDL [Mass/Vol] 93 mg/dL High 40-60 [facility] Comment on above: Performed By: #### E SR, URIC, GFR, MG, LIPID, CBC, ANEU, FERR, TSH, VIDH, CMP, ADIFF, CRP, FT4 #### [address] [address] Cholesterol in LDL [Mass/Vol] 106 mg/dL Normal 0-130 [facility] Comment on above: Performed By: #### E SR, URIC, GFR, MG, LIPID, CBC, ANEU, FERR, TSH, VIDH, CMP, ADIFF, CRP, FT4 #### [address] [address] Triglyceride [Mass/Vol] 128 mg/dL Normal 0-150 [facility] Comment on above: Result Comment: Trig lyceride Reference Interval: Less than 150 Normal 150-199 Borderline high risk 200-499 High risk 500 or higher Very high risk Performed By: #### E SR, URIC, GFR, MG, LIPID, CBC, ANEU, FERR, TSH, VIDH, CMP, ADIFF, CRP, FT4 #### [address] [address] MGon 10-08-2024 Magnesium [Mass/Vol] 1.9 mg/dL Normal 1.8-2.4 [facility] Comment on above: Performed By: #### E SR, URIC, GFR, MG, LIPID, CBC, ANEU, FERR, TSH, VIDH, CMP, ADIFF, CRP, FT4 #### [address] [address] TSHon 10-08-2024 TSH Qn 1.07 m[IU]/L Normal 0.36-3.74 [facility] Comment on above: Performed By: #### E SR, URIC, GFR, MG, LIPID, CBC, ANEU, FERR, TSH, VIDH, CMP, ADIFF, CRP, FT4 #### [place] [address] [place], [place] [address] URICon 10-08-2024 Uric Acid Lvl 4.1 mg/dL Normal 2.6-6.2 [facility] Comment on above: Performed By: #### E SR, URIC, GFR, MG, LIPID, CBC, ANEU, FERR, TSH, VIDH, CMP, ADIFF, CRP, FT4 #### [place] [id number] [place] [address] VIDHon 10-08-2024 Vit. D 25-Hydroxy 56.2 ng/mL Normal [facility] Comment on above: Result Comment: Inte rpretive Values Based on Total 25([place]) Vitamin D: Deficient <20 ng/mL Insufficient 20 - <30 ng/mL Sufficient 30-100 ng/mL Performed By: #### E SR, URIC, GFR, MG, LIPID, CBC, ANEU, FERR, TSH, VIDH, CMP, ADIFF, CRP, FT4 #### [address] [address] LABORATORYOrdered By: Kaitlin Sheth on 04-09-2024 Amphetamines Screen Ql (U) Negative *NA* (04/09/24 4:24 PM) Invalid Interpretation Code Negative AO ADM SS Barbiturates Screen Ql (U) Negative *NA* (04/09/24 4:24 PM) Invalid Interpretation Code Negative AO ADM SS Benzodiazepines Ql (U) Negative *NA* (04/09/24 4:24 PM) Invalid Interpretation Code Negative AO ADM SS Benzoylecgonine Screen Ql (U) Negative *NA* (04/09/24 4:24 PM) Invalid Interpretation Code Negative AO ADM SS Cannabinoids Screen Ql (U) Negative *NA* (04/09/24 4:24 PM) Invalid Interpretation Code Negative AO ADM SS Methadone Screen Ql (U) Negative *NA* (04/09/24 4:24 PM) Invalid Interpretation Code Negative AO ADM SS Opiates Screen Ql (U) Positive *ABN* (04/09/24 4:24 PM) Invalid Interpretation Code Negative AO ADM SS Phencyclidine Ql (U) Negative *NA* (04/09/24 4:24 PM) Invalid Interpretation Code Negative AO ADM SS Urine Drugs screened: See Below 1 (04/09/24 4:24 PM) Normal AO Chemistry S Comment on above: Interpretive Data: T his drug screen is a presumptive screening only. No confirmation will be performed unless requested. Drugs screened include: Threshold Amphetamines/Methamphetamines 1,000 ng/mL Barbiturates 200 ng/mL Benzodiazepine metabolites 200 ng/mL Cannabinoids (THC metabolites) 50 ng/mL Cocaine 300 ng/mL Opiates 300 ng/mL Methadone 300 ng/mL Phencyclidine (PCP) 25 ng/mL Testing has been performed FOR MEDICAL PURPOSES ONLY. Manuel 04-09-2024 Amphetamine (u) Negative Normal Negative [facility] ([place]) Comment on above: Performed By: #### U DRUG #### [address] [address] Barbiturate (u) Negative Normal Negative [facility] ([place]) Comment on above: Performed By: #### U DRUG #### [address] [address] Benzodiazepine (u) Negative Normal Negative [facility] ([place]) Comment on above: Performed By: #### U DRUG #### [address] [address] Cannabinoid (u) Negative Normal Negative [facility] ([place]) Comment on above: Performed By: #### U DRUG #### [address] [address] Cocaine Ql (U) Negative Normal Negative [facility] ([place]) Comment on above: Performed By: #### U DRUG #### [address] [address] Methadone Ql (U) Negative Normal Negative [facility] ([place]) Comment on above: Performed By: #### U DRUG #### [address] [address] Opiate (u) Positive Abnormal Negative [facility] ([place]) Comment on above: Performed By: #### U DRUG #### [address] [address] PCP (u) Negative Normal Negative [facility] ([place]) Comment on above: Performed By: #### U DRUG #### [address] [address] Urine Drugs screened: See Below Normal [facility] ([place]) Comment on above: Result Comment: This drug screen is a presumptive screening only. No confirmation will be performed unless requested. Drugs screened include: Threshold Amphetamines/Methamphetamines 1,000 ng/mL Barbiturates 200 ng/mL Benzodiazepine metabolites 200 ng/mL Cannabinoids (THC metabolites) 50 ng/mL Cocaine 300 ng/mL Opiates 300 ng/mL Methadone 300 ng/mL Phencyclidine (PCP) 25 ng/mL Testing has been performed FOR MEDICAL PURPOSES ONLY. Performed By: #### U DRUG #### [address] [address] Absolute lymphocyte countOrd ered By: Juan Alcantara on 02-29-2024 Lymphocytes Auto (Unsp spec) [#/Vol] 1.52 10*3/uL 0.83-4.[address] [facility] Automated lymphocyte count a s percentage of total leukocytesOrdered By: Juan Alcantara on 02-29-2024 Lymphocytes/100 WBC Auto (Unsp spec) 25.4 % 19-[address] [facility] Basophil percentageOrdered B y: Juan Alcantara on 02-29-2024 Basophils/100 WBC (Bld) 0.5 % 0-[address] [facility] Bilirubin [Mass/Vol] 0.40 mg/dL 0.20-1.00 [facility] Comment on above: For patients on eltr ombopag therapy, use of Dimension [place] TBIL is not recommended. Chloride [Moles/Vol] 101 mmol/L 98-107 [facility] Cholesterol [Mass/Vol] 215 mg/dL <[address] [facility] Comment on above: <200 mg/dL Desirable 200-240 mg/dL Borderline >240 mg/dL High Risk Eosinophils/100 WBC (Bld) 8.0 % 0-[address] [facility] Glucose [Mass/Vol] 92 mg/dL 74-106 [facility] Hemoglobin (Bld) [Mass/Vol] 13.5 g/dL 12.0-15.[address] [facility] Monocytes/100 WBC (Bld) 10.4 % 0-[address] [facility] Neutrophils (Bld) [#/Vol] 3.3 10*3/uL 2.0-7.[address] [facility] Neutrophils/100 WBC (Bld) 55.4 % 47-[address] [facility] Potassium [Moles/Vol] 3.9 mmol/L 3.5-5.[address] [facility] Protein [Mass/Vol] 7.0 g/dL 6.4-8.2 [facility] Sodium [Moles/Vol] 134 mmol/L 136-145 [facility] Triglyceride [Mass/Vol] 150 mg/dL <[address] [facility] Comment on above: The drugs N-Acetylcy steine and Metamizole may falsely depress this assay.Serum Triglycerides Reference Interval Normal <150 mg/dL Borderline high 150 - 199 mg/dL High 200 - 499 mg/dL Very High > or = 500 mg/dL WBC (Bld) [#/Vol] 6.0 10*3/uL 4.4-11.0 [facility] CBC W/Diff, Automatedon 02-03 Absolute Lymph 1.52 X10 3/uL Normal 0.83-4.[address] [facility] Comment on above: Order Comment: PLEAS E FAX [id number] Performed By: #### L 500.4050, L501.9520, L100.0100, L500.4100 #### [facility] [address] [place], [address] Absolute Neut 3.3 X10 3/uL Normal 2.0-7.[address] [facility] Comment on above: Order Comment: PLEAS E FAX [phone] Performed By: #### L 500.4050, L501.9520, L100.0100, L500.4100 #### [facility] [address] [place], [address] Basophils/100 WBC (Bld) 0.5 % Normal 0-[address] [facility] Comment on above: Order Comment: PLEAS E FAX [id number] Performed By: #### L 500.4050, L501.9520, L100.0100, L500.4100 #### [facility] [address] [place], [address] Eosinophils/100 WBC (Bld) 8.0 % High 0-[address] [facility] Comment on above: Order Comment: PLEAS E FAX [id number] Performed By: #### L 500.4050, L501.9520, L100.0100, L500.4100 #### [facility] [address] [place], [address] Erythrocyte distribution width (RBC) [Ratio] 12.7 % Normal 11.6-14.[address] [facility] Comment on above: Order Comment: PLEAS E FAX [id number] Performed By: #### L 500.4050, L501.9520, L100.0100, L500.4100 #### [facility] [address] [place], [address] Hematocrit (Bld) [Volume fraction] 40.7 % Normal 37-[address] [facility] Comment on above: Order Comment: PLEAS E FAX [id number] Performed By: #### L 500.4050, L501.9520, L100.0100, L500.4100 #### [facility] [address] [place], [address] Hemoglobin (Bld) [Mass/Vol] 13.5 g/dL Normal 12.0-15.[address] [facility] Comment on above: Order Comment: PLEAS E FAX [id number] Performed By: #### L 500.4050, L501.9520, L100.0100, L500.4100 #### [facility] [address] [place], [address] IG% 0.300 Normal 0.0-0.[address] [facility] Comment on above: Order Comment: PLEAS E FAX [id number] Result Comment: IG% - Immature Granulocytes (promyelocytes, myelocytes and metamyelocytes) > 1% indicates that a LEFT SHIFT is Present. Performed By: #### L 500.4050, L501.9520, L100.0100, L500.4100 #### [facility] [address] [place], [address] Lymphocytes/100 WBC (Bld) 25.4 % Normal 19-[address] [facility] Comment on above: Order Comment: PLEAS E FAX [id number] Performed By: #### L 500.4050, L501.9520, L100.0100, L500.4100 #### [facility] [address] [place], [address] MCH (RBC) [Entitic mass] 31.1 pg Normal 27.0-32.[address] [facility] Comment on above: Order Comment: PLEAS E FAX [id number] Performed By: #### L 500.4050, L501.9520, L100.0100, L500.4100 #### [facility] [address] [place], [address] MCHC (RBC) [Mass/Vol] 33.2 g/dL Normal 32-[address] [facility] Comment on above: Order Comment: PLEAS E FAX [id number] Performed By: #### L 500.4050, L501.9520, L100.0100, L500.4100 #### [facility] [address] [place], [address] MCV (RBC) [Entitic vol] 93.8 fL Normal 81-[address] [facility] Comment on above: Order Comment: PLEAS E FAX [id number] Performed By: #### L 500.4050, L501.9520, L100.0100, L500.4100 #### [facility] [address] [place], [address] Monocytes/100 WBC (Bld) 10.4 % High 0-[address] [facility] Comment on above: Order Comment: PLEAS E FAX [id number] Performed By: #### L 500.4050, L501.9520, L100.0100, L500.4100 #### [facility] [address] [place], [address] Neutrophils/100 WBC (Bld) 55.4 % Normal 47-[address] [facility] Comment on above: Order Comment: PLEAS E FAX [id number] Performed By: #### L 500.4050, L501.9520, L100.0100, L500.4100 #### [facility] [address] [place], [address] Nucleated RBC (Bld) [#/Vol] 0 10*3/uL Normal 0-[address] [facility] Comment on above: Order Comment: PLEAS E FAX [id number] Performed By: #### L 500.4050, L501.9520, L100.0100, L500.4100 #### [facility] [address] [place], [address] Platelet mean volume (Bld) [Entitic vol] 9.3 fL Normal 6.2-12.[address] [facility] Comment on above: Order Comment: PLEAS E FAX [id number] Performed By: #### L 500.4050, L501.9520, L100.0100, L500.4100 #### [facility] [address] [place], [address] Platelets (Bld) [#/Vol] 218 10*3/uL Normal 150-[address] [facility] Comment on above: Order Comment: PLEAS E FAX [id number] Performed By: #### L 500.4050, L501.9520, L100.0100, L500.4100 #### [facility] [address] [place], [address] RBC (Bld) [#/Vol] 4.34 10*6/uL Normal 4.2-5.4 [facility] Comment on above: Order Comment: PLEAS E FAX [id number] Performed By: #### L 500.4050, L501.9520, L100.0100, L500.4100 #### [facility] [address] [place], [address] RDW SD 43.7 fl Normal 35.1-43.[address] [facility] Comment on above: Order Comment: PLEAS E FAX [id number] Performed By: #### L 500.4050, L501.9520, L100.0100, L500.4100 #### [facility] [address] [place], [address] WBC (Bld) [#/Vol] 6.0 10*3/uL Normal 4.4-11.0 [facility] Comment on above: Order Comment: PLEAS E FAX [phone] Performed By: #### L 500.4050, L501.9520, L100.0100, L500.4100 #### [facility] [address] [place], [address] Comprehensive Metabolic Prof ilon 02-29-2024 Albumin [Mass/Vol] 3.6 g/dL Normal 3.2-5.0 [facility] Comment on above: Order Comment: PT RE FUSED TEST PLEASE FAX [phone] Performed By: #### L 500.4050, L501.9520, L100.0100, L500.4100 #### [facility] [address] [place], [address] Albumin/Globulin [Mass ratio] 1.1 {ratio} Normal 0.9-2.[address] [facility] Comment on above: Order Comment: PT RE FUSED TEST PLEASE FAX [phone] Performed By: #### L 500.4050, L501.9520, L100.0100, L500.4100 #### [facility] [address] [place], [address] ALK P 52 U/L Normal 45-[address] [facility] Comment on above: Order Comment: PT RE FUSED TEST PLEASE FAX [phone] Performed By: #### L 500.4050, L501.9520, L100.0100, L500.4100 #### [facility] [address] [place], [address] ALT [Catalytic activity/Vol] 19 U/L Normal 13-[address] [facility] Comment on above: Order Comment: PT RE FUSED TEST PLEASE FAX [phone] Performed By: #### L 500.4050, L501.9520, L100.0100, L500.4100 #### [facility] [address] [place], [address] AST [Catalytic activity/Vol] 19 U/L Normal 15-[address] [facility] Comment on above: Order Comment: PT RE FUSED TEST PLEASE FAX [phone] Performed By: #### L 500.4050, L501.9520, L100.0100, L500.4100 #### [facility] [address] [place], [address] Bilirubin [Mass/Vol] 0.40 mg/dL Normal 0.20-1.00 [facility] Comment on above: Order Comment: PT RE FUSED TEST PLEASE FAX [phone] Result Comment: For patients on eltrombopag therapy, use of Dimension [place] TBIL is not recommended. Performed By: #### L 500.4050, L501.9520, L100.0100, L500.4100 #### [facility] [address] [place], [address] BUN/CRE 16.5 RATIO Normal 10-[address] [facility] Comment on above: Order Comment: PT RE FUSED TEST PLEASE FAX [phone] Performed By: #### L 500.4050, L501.9520, L100.0100, L500.4100 #### [facility] [address] [place], [address] CA,Total 9.6 mg/dL Normal 8.5-10.[address] [facility] Comment on above: Order Comment: PT RE FUSED TEST PLEASE FAX [phone] Performed By: #### L 500.4050, L501.9520, L100.0100, L500.4100 #### [facility] [address] [place], [address] Chloride [Moles/Vol] 101 mmol/L Normal 98-107 [facility] Comment on above: Order Comment: PT RE FUSED TEST PLEASE FAX [phone] Performed By: #### L 500.4050, L501.9520, L100.0100, L500.4100 #### [facility] [address] [place], [address] CO2 [Moles/Vol] 28.0 mmol/L Normal 21.0-32.[address] [facility] Comment on above: Order Comment: PT RE FUSED TEST PLEASE FAX [phone] Performed By: #### L 500.4050, L501.9520, L100.0100, L500.4100 #### [facility] [address] [place], [address] Creatinine [Mass/Vol] 0.85 mg/dL Normal 0.55-1.[address] [facility] Comment on above: Order Comment: PT RE FUSED TEST PLEASE FAX [phone] Result Comment: The validity of the calculated GFR GFRAA in patients over 70 years has not been determined. Clinical correlation is essential. Performed By: #### L 500.4050, L501.9520, L100.0100, L500.4100 #### [facility] [address] [place], [address] EST GFR - AA 85 mL/min Normal >[address] [facility] Comment on above: Order Comment: PT RE FUSED TEST PLEASE FAX [phone] Result Comment: Afri can Malagasy GFR Calc Performed By: #### L 500.4050, L501.9520, L100.0100, L500.4100 #### [facility] [address] [place], [address] GAP 5 Normal 5-[address] [facility] Comment on above: Order Comment: PT RE FUSED TEST PLEASE FAX [phone] Performed By: #### L 500.4050, L501.9520, L100.0100, L500.4100 #### [facility] [address] [place], [address] GFR/1.73 sq M.predicted among non-blacks MDRD (S/P/Bld) [Vol rate/Area] 70 mL/min/{1.73_m2} Normal >[address] [facility] Comment on above: Order Comment: PT RE FUSED TEST PLEASE FAX [phone] Result Comment: Non- GFR Calc Performed By: #### L 500.4050, L501.9520, L100.0100, L500.4100 #### [facility] [address] [place], [address] Globulin (S) [Mass/Vol] 3.4 g/dL Normal 2.2-4.[address] [facility] Comment on above: Order Comment: PT RE FUSED TEST PLEASE FAX [phone] Performed By: #### L 500.4050, L501.9520, L100.0100, L500.4100 #### [facility] [address] [place], [address] Glucose [Mass/Vol] 92 mg/dL Normal 74-106 [facility] Comment on above: Order Comment: PT RE FUSED TEST PLEASE FAX [phone] Performed By: #### L 500.4050, L501.9520, L100.0100, L500.4100 #### [facility] [address] [place], [address] Potassium [Moles/Vol] 3.9 mmol/L Normal 3.5-5.[address] [facility] Comment on above: Order Comment: PT RE FUSED TEST PLEASE FAX [phone] Performed By: #### L 500.4050, L501.9520, L100.0100, L500.4100 #### [facility] [address] [place], [address] Sodium [Moles/Vol] 134 mmol/L Low 136-145 [facility] Comment on above: Order Comment: PT RE FUSED TEST PLEASE FAX [phone] Performed By: #### L 500.4050, L501.9520, L100.0100, L500.4100 #### [facility] [address] [place], [address] T PROT 7.0 g/dL Normal 6.4-8.[address] [facility] Comment on above: Order Comment: PT RE FUSED TEST PLEASE FAX [phone] Performed By: #### L 500.4050, L501.9520, L100.0100, L500.4100 #### [facility] [address] [place], [address] Urea nitrogen [Mass/Vol] 14 mg/dL Normal 7-[address] [facility] Comment on above: Order Comment: PT RE FUSED TEST PLEASE FAX [phone] Performed By: #### L 500.4050, L501.9520, L100.0100, L500.4100 #### [facility] [address] [place], [address] Determination of erythrocyte mean corpuscular volume (MCV)Ordered By: Juan Alcantara on 02-29-2024 MCV (RBC) [Entitic vol] 93.8 fL 81-[address] [facility] Erythrocyte distribution wid th ratioOrdered By: Juan Alcantara on 02-29-2024 Erythrocyte distribution width (RBC) [Ratio] 12.7 % 11.6-14.[address] [facility] Erythrocyte distribution wid th standard deviationOrdered By: Juan Alcantara on 02-29-2024 Erythrocyte distribution width (RBC) [Entitic vol] 43.7 fL 35.1-43.[address] [facility] Hematocrit Auto (Bld) [Volum e fraction]Ordered By: Juan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 [facility] Work Phone: Glucose [Mass/Vol] 101 mg/dL 74-106 [facility] Work Phone: Comment on above: Fasting Glucose resu lt from 100 to 125 mg/dL suggests IMPAIRED HOMEOSTASIS per A.D.A. criteria. Potassium [Moles/Vol] 3.6 mmol/L 3.5-5.[address] [facility] Work Phone: Sodium [Moles/Vol] 128 mmol/L 136-145 [facility] Work Phone: Blood erythrocytes count (nu mber/volume)on 02-14-2022 RBC (Bld) [#/Vol] 4.54 10*6/uL 4.2-5.4 [facility]: Blood hemoglobin measurement (mass/volume)on 02-14-2022 Hemoglobin (Bld) [Mass/Vol] 14.4 g/dL 12.0-15.[address] [facility] Work Phone: Blood lymphocytes/100 leukoc yteson 02-14-2022 Lymphocytes/100 WBC (Bld) 17.6 % 19-[address] [facility] Work Phone: Blood monocytes/100 leukocyt eson 02-14-2022 Monocytes/100 WBC (Bld) 9.8 % 0-[address] [facility] Work Phone: Blood platelet mean volumeon 02-14-2022 Platelet mean volume (Bld) [Entitic vol] 8.5 fL 6.2-12.[address] [facility] Work Phone: Determination of erythrocyte mean corpuscular volume (MCV)on 02-14-2022 MCV (RBC) [Entitic vol] 84.6 fL 81-[address] [facility] Work Phone: Hematocrit Auto (Bld) [Volum e fraction]on 02-14-2022 Hematocrit (Bld) [Volume fraction] 38.4 % 37-[address] [facility] Work Phone: Laboratory - Chemistry and C hemistry - challengeon 02-14-2022 CO2 [Moles/Vol] 27.0 mmol/L 21.0-32.[address] [facility] Work Phone: Urea nitrogen/Creatinine [Mass ratio] 13.9 mg/mg 10-[address] [facility] Work Phone: Laboratory - Hematology and Cell countson 02-14-2022 Erythrocyte distribution width (RBC) [Entitic vol] 35.8 fL 35.1-43.[address] [facility] Work Phone: Erythrocyte distribution width (RBC) [Ratio] 11.8 % 11.6-14.[address] [facility] Work Phone: Immature granulocytes/100 WBC (Bld) 0.800 % 0.0-0.[address] [facility] Work Phone: Comment on above: IG% - Immature Granu locytes (promyelocytes, myelocytes and metamyelocytes) > 1% indicates that a LEFT SHIFT is Present. MCH (RBC) [Entitic mass] 31.7 pg 27.0-32.[address] [facility] Work Phone: Nucleated RBC/100 WBC (Bld) [Ratio] 0 % 0-[address] [facility] Work Phone: MCHC Auto (RBC) [Mass/Vol]on 02-14-2022 MCHC (RBC) [Mass/Vol] 37.5 g/dL 32-[address] [facility] Work Phone: No Panel Informationon 02-14 Estimated Creatinine Clearance Calc 40.81 ml/min [facility] Work Phone: Estimated GFR (MDRD) Amer 133 mL/min >[address] [facility] Work Phone: Comment on above: GFR Calc Estimated GFR (MDRD) Non-Af Amer 110 mL/min >[address] [facility] Work Phone: Comment on above: Non- GFR Calc Influenza Types A,B Direct FA (ISHMAEL) [facility] Work Phone: Troponin I High Sensitivity < 3 pg/mL 3.0-54.[address] [facility] Work Phone: Comment on above: Please Note: New [place] t Units and Gender Specific Reference Ranges. For more information see Policy Stat Procedure [place] High Sensitivity Troponin (TNIH) and attachments. Platelets bldon 02-14-2022 Platelets (Bld) [#/Vol] 286 10*3/uL 150-[address] [facility] Work Phone: Serum or plasma calcium mariya urement (mass/volume)on 02-14-2022 Calcium [Mass/Vol] 9.6 mg/dL 8.5-10.1 [facility] Work Phone: Serum or plasma creatinine m easurement (mass/volume)on 02-14-2022 Creatinine [Mass/Vol] 0.58 mg/dL 0.55-1.[address] [facility] Work Phone: Comment on above: The validity of the calculated GFR & GFRAA in patients over 70 years has not been determined. Clinical correlation is essential. Serum or plasma urea nitroge n measurement (mass/volume)on 02-14-2022 Urea nitrogen [Mass/Vol] 8 mg/dL 7-[address] [facility] Work Phone: Thin prep Papanicolaou smear with manual screeningon 02-14-2022 Thin prep Papanicolaou smear with manual screening 7 5-[address] [facility] Work Phone: Bordetella pertussis IgM ant ibody assayon 12-25-2021 B. pertussis IgM IA Qn (S) 1.[address] [facility] Work Phone: Comment on above: Negative <1.0 Border line 1.0 - 1.1 Positive >1.1 No Panel Informationon 12-25 Bordetella pertussis IgG Antibody 2.[address] [facility] Work Phone: Comment on above: Negative <0.95 Equiv ocal 0.95 - 1.04 Positive >1.04 Miscellaneous Test See comment [facility] Work Phone: Comment on above: TEST RESULT LIMITSPn eumococcal Ab (23 Serotype) Pneumo Ab Type 1* 0.6 Low ug/mL >1.3 Pneumo Ab Type 3* 1.0 Low ug/mL >1.3 Pneumo Ab Type 4* 0.1 Low ug/mL >1.3 Pneumo Ab Type 8* 0.2 Low ug/mL >1.3 Pneumo Ab Type 9 (9N)* <0.1 Low ug/mL >1.3 Pneumo Ab Type 12 (12F)* <0.1 Low ug/mL >1.3 Pneumo Ab Type 14* 3.5 ug/mL >1.3 Pneumo Ab Type 17 (17F)* <0.1 Low ug/mL >1.3 Pneumo Ab Type 19 (19F)* 0.7 Low ug/mL >1.3 Pneumo Ab Type 2* 0.2 Low ug/mL >1.3 Pneumo Ab Type 20* 0.7 Low ug/mL >1.3 Pneumo Ab Type 22 (22F)* 0.1 Low ug/mL >1.3 Pneumo Ab Type 23 (23F)* 0.1 Low ug/mL >1.3 Pneumo Ab Type 26 (6B)* 0.4 Low ug/mL >1.3 Pneumo Ab Type 34 (10A)* 0.3 Low ug/mL >1.3 Pneumo Ab Type 43 (11A)* 0.3 Low ug/mL >1.3 Pneumo Ab Type 5* 0.6 Low ug/mL >1.3 Pneumo Ab Type 51 (7F)* 0.3 Low ug/mL >1.3 Pneumo Ab Type 54 (15B)* 0.1 Low ug/mL >1.3 Pneumo Ab Type 56 (18C)* 0.3 Low ug/mL >1.3 Pneumo Ab Type 57 (19A)* 1.7 ug/mL >1.3 Pneumo Ab Type 68 (9V)* 0.4 Low ug/mL >1.3 Pneumo Ab Type 70 (33F)* 0.6 Low ug/mL >1.3*This test was developed and its performancecharacteristics determined by [email or web address]. It has notbeen cleared or approved by the U.S. Food and DrugAdministration. TESTING PERFORMED AT [facility]. ORIGINAL REPORT ON FILE IN LAB CONTAINS ADDITIONAL TEST SITE INFORMATION. ____ Serum Bordetella pertussis I gA antibody assay (units/volume)on 12-25-2021 B. pertussis IgA Qn (S) < 1.[address] [facility] Work Phone: Comment on above: Negative <1.0 Border line 1.0 - 1.1 Positive >1.1Performed at: [facility] [id number] Director: Cameron Pfeiffer MD, Phone: [phone] IGAon 09-29-2021 IgA [Mass/Vol] 231 mg/dL Normal 87-352 [facility] Comment on above: Performed By: #### L [id number], [id number], [id number] #### [facility] [address] [address] IGG SUBCLASSESon 09-29-2021 IgG [Mass/Vol] 546 mg/dL Low 586-1602 [facility] Comment on above: Performed By: #### L [id number], [id number], [id number] #### [facility] [address] [place] [address] IGG SUBCLASS 1 313 mg/dL Normal 248-810 [facility] Comment on above: Performed By: #### L [id number], [id number], [id number] #### [facility] [address] [place] [address] IGG SUBCLASS 2 143 mg/dL Normal 130-555 [facility] Comment on above: Performed By: #### L [id number], [id number], [id number] #### [facility] [address] [place] [address] IGG SUBCLASS 3 51 mg/dL Normal 15-102 [facility] Comment on above: Performed By: #### L [id number], [id number], [id number] #### [facility] [address] [place] [address] IGG SUBCLASS 4 25 mg/dL Normal 2-96 [facility] Comment on above: Performed By: #### L [id number], [id number], [id number] #### [facility] [address] [place] [address] IGMon 09-29-2021 IgM [Mass/Vol] 67 mg/dL Normal 26-217 [facility] Comment on above: Result Comment: Perf ormed At: [facility] [id number] Vaughn Garcia PhD [id number] Performed By: #### L [id number], [id number], [id number] #### [facility] [address] [place] [id number] Lipid Panelon 06-28-2020 Cholesterol [Mass/Vol] 175 mg/dL Normal 0-199 [facility] Comment on above: Result Comment: ATP III Cholesterol classification is Desirable. Performed By: #### L IPID #### [facility] [address] [place] [address] Cholesterol in HDL [Mass/Vol] 71 mg/dL Critically high 40-59 [facility] Comment on above: Result Comment: ATP III HDL Cholesterol Classification is high. Expected Values: Males: >55 = No Risk 35-55 = Moderate Risk <35 = High Risk Females: >65 = No Risk 45-65 = Moderate Risk <45 = High Risk NCEP Guidelines: Third Report March 2001 >59 = negative risk factor for CHD <40 = major risk factor for CHD Performed By: #### L IPID #### [facility] [address] [place] [address] Cholesterol in LDL [Mass/Vol] 70 mg/dL Normal 0-129 [facility] Comment on above: Result Comment: ATP III LDL Classification is Optimal. Performed By: #### L IPID #### [facility] [address] [place] [address] Triglyceride [Mass/Vol] 168 mg/dL Critically high 0-150 [facility] Comment on above: Result Comment: ATP III Triglycerides Classification is Borderline High. Performed By: #### L IPID #### [facility] [address] [place] [address] TSH w/out Reflexon 0 TSH Qn 1.220 uIU/mL Normal 0.440-3.86 [facility] Comment on above: Performed By: #### T SH #### [facility] [address] [place] [address] Vitamin B12 and Folateon Cobalamin (Vitamin B12) [Mass/Vol] 990 pg/mL Normal 232-1245 [facility] Comment on above: Performed By: #### B 12FO #### [facility] [address] [place] [address] Folate >20.0 Normal 7.3-26.1 [facility] Comment on above: Result Comment: As o f 16, the methodology has changed. Results from this methodology should not be compared with results from previous methodology. Performed By: #### B 12FO #### [facility] [address] [place] [address] Vitamin Don 06-27-2020 Vitamin D 67.6 ng/mL Normal 30.0-100.0 [facility] Comment on above: Result Comment: (30- 100 ng/mL) Optimum Level This assay accurately quantifies the sum of vitamin D3, 25-Hydroxy and vitamin D2, 25-Hyroxy. Performed By: #### V ITD #### [facility] [address] [place] [address] Vital Signs Date Time Vital Sign Value Performing Clinician Facility 02-13-2023 12:49-0400 Body height 157.[address] Juan Alcantara Work Phone: [facility] 02-13-2023 12:49-0400 Body mass index (BMI) [Ratio] 26.3 kg/m2 Dr. Juan Alcantara Work Phone: [facility] 02-13-2023 12:49-0400 Body temperature 97.8 [degF] Dr. Juan Alcantara Work Phone: [facility] 02-13-2023 12:49-0400 Body weight 65.[address] Juan Alcantara Work Phone: [facility] 02-13-2023 12:49-0400 Diastolic blood pressure 67 mm[Hg] Dr. Juan Alcantara Work Phone: [facility] 02-13-2023 12:49-0400 Heart rate 67 /min Dr. Juan Alcantara Work Phone: [facility] 02-13-2023 12:49-0400 Respiratory rate 18 /min Dr. Juan Alcantara Work Phone: [facility] 02-13-2023 12:49-0400 SaO2% (BldA) [Mass fraction] 97 % Dr. Juan Alcantara Work Phone: [facility] 02-13-2023 12:49-0400 Systolic blood pressure 127 mm[Hg] Dr. Juan Alcantara Work Phone: [facility] 08-29-2022 16:51-0400 Body weight 62.14 kg Denny Hitchcock MD Work Phone: [facility] 08-29-2022 16:51-0400 Diastolic blood pressure 66 mm[Hg] Denny Hitchcock MD Work Phone: [facility] 08-29-2022 16:51-0400 Heart rate 74 /min Denny Hitchcock MD Work Phone: [facility] 08-29-2022 16:51-0400 Respiratory rate 14 /min Denny Hitchcock MD Work Phone: [facility] 08-29-2022 16:51-0400 Systolic blood pressure 128 mm[Hg] Denny Hitchcock MD Work Phone: [facility] 08-09-2022 13:53-0400 Diastolic blood pressure 81 mm[Hg] Tomas Figueroa MD Work Phone: [facility] 08-09-2022 13:53-0400 Heart rate 62 /min Tomas Figueroa MD Work Phone: [facility] 08-09-2022 13:53-0400 SaO2% (BldA) [Mass fraction] 97 % Tomas Figueroa MD Work Phone: [facility] 08-09-2022 13:53-0400 Systolic blood pressure 137 mm[Hg] Tomas Figueroa MD Work Phone: [facility] 06-29-2022 13:37-0400 Diastolic blood pressure 62 mm[Hg] Tomas Figueroa MD Work Phone: [facility] 06-29-2022 13:37-0400 Heart rate 65 /min Tomas Figueroa MD Work Phone: [facility] 06-29-2022 13:37-0400 SaO2% (BldA) [Mass fraction] 97 % Tomas Figueroa MD Work Phone: [facility] 06-29-2022 13:37-0400 Systolic blood pressure 115 mm[Hg] Tomas Figueroa MD Work Phone: [facility] 06-15-2022 11:16-0400 Body height 157.5 cm Charlotte Older SPECIAL TECHNICAL OPERATIONS OFFICER.DIRECTOR OF FINANCIAL REPORTING Work Phone: [facility] 06-15-2022 11:16-0400 Body weight 60.78 kg Charlotte Older SPECIAL TECHNICAL OPERATIONS OFFICER.DIRECTOR OF FINANCIAL REPORTING Work Phone: [facility] 06-15-2022 11:16-0400 Diastolic blood pressure 72 mm[Hg] Charlotte Older SPECIAL TECHNICAL OPERATIONS OFFICER.DIRECTOR OF FINANCIAL REPORTING Work Phone: [facility] 06-15-2022 11:16-0400 Heart rate 64 /min Charlotte Older SPECIAL TECHNICAL OPERATIONS OFFICER.DIRECTOR OF FINANCIAL REPORTING Work Phone: [facility] 06-15-2022 11:16-0400 Respiratory rate 12 /min Charlotte Older SPECIAL TECHNICAL OPERATIONS OFFICER.DIRECTOR OF FINANCIAL REPORTING Work Phone: [facility] 06-15-2022 11:16-0400 Systolic blood pressure 118 mm[Hg] Charlotte Older SPECIAL TECHNICAL OPERATIONS OFFICER.DIRECTOR OF FINANCIAL REPORTING Work Phone: [facility] 02-14-2022 17:25-0400 Diastolic blood pressure 69 mm[Hg] [facility] Work Phone: 02-14-2022 17:25-0400 Heart rate 66 /min [facility] Work Phone: 02-14-2022 17:25-0400 Respiratory rate 15 /min [facility] Work Phone: 02-14-2022 17:25-0400 SaO2% (BldA) [Mass fraction] 98 % [facility] Work Phone: 02-14-2022 17:25-0400 Systolic blood pressure 144 mm[Hg] [facility] Work Phone: 02-14-2022 14:13-0400 Body height 157.48 cm [facility] Work Phone: 02-14-2022 14:13-0400 Body mass index (BMI) [Ratio] 22.9 kg/m2 [facility] Work Phone: 02-14-2022 14:13-0400 Body temperature 97.7 [degF] [facility] Work Phone: 02-14-2022 14:13-0400 Body weight 57 kg [facility] Work Phone: Encounters Encounter Date Encounter Type Care Provider Facility Start: 04-27-2025 End: 05-28-2025 ambulatory Denny Hitchcock MD Work Phone: [facility] [place] Start: 04-06-2025 End: 04-10-2025 ambulatory JUAN ALCANTARA MD Facility:[facility] Start: 04-06-2025 End: 04-10-2025 Outreach Lab JUAN ALCANTARA MD [facility] Start: 12-01-2024 End: 12-01-2024 ambulatory Ginette Shetty [facility] [place] Start: 10-08-2024 End: 10-08-2024 ambulatory JUAN ALCANTARA MD Facility:[facility] Start: 10-08-2024 End: 10-08-2024 Patient encounter procedure JUAN ALCANTARA MD [facility] Start: 05-27-2024 ambulatory Denny torrez MD Work Phone: [place] [id number] Start: 04-09-2024 ambulatory JUAN ALCANTARA MD Faci lity:B Start: 04-09-2024 End: 04-13-2024 Outreach Lab JUAN ALCANTARA MD [facility] Start: 02-29-2024 End: 02-29-2024 ambulatory Juan [facility] Work Phone: Start: 02-29-2024 End: 02-29-2024 Patient encounter procedure [facility] Work Phone: Start: 01-25-2024 ambulatory Ginette castro [facility] Internal Medicine [place] Start: 09-11-2023 End: 09-15-2023 ambulatory TONJA SYLVESTER MD Facility:B Start: 09-11-2023 End: 09-15-2023 Outreach Lab TONJA SYLVESTER MD [facility] Start: 09-02-2023 End: 09-06-2023 ambulatory TONJA SYLVESTER MD Facility:B Start: 08-16-2023 End: 08-20-2023 ambulatory JUAN ALCANTARA MD Facility:B Start: 08-16-2023 End: 08-20-2023 Outreach Lab JUAN ALCANTARA MD [facility] Start: 07-10-2023 ambulatory Juan Alcantara Facility: [facility] Start: 06-19-2023 ambulatory Denny torrez MD Work Phone: Internal Medicine [place] Start: 04-22-2023 ambulatory Juan Alcantara Facility: [facility] Start: 04-22-2023 Non-patient / Non-visit Dr. Delvalle Work Phone: [facility] Start: 04-18-2023 End: 04-18-[address] Juan Alcantara Work Phone: [facility] Work Phone: Start: 04-18-2023 End: 04-18-[address] Juan Alcantara Work Phone: [facility]-Pulmonary Services/Neurology Start: 03-01-2023 End: 03-01-[address] Juan Alcantara Work Phone: [facility] Work Phone: Start: 03-01-2023 End: 03-01-[address] Juan Alcantara Work Phone: [facility] Start: 02-22-2023 End: 02-22-[address] Juan Alcantara Work Phone: [facility] Work Phone: Start: 02-22-2023 End: 02-22-[address] Juan Alcantara Work Phone: [facility]Laboratory Start: 02-13-2023 End: 02-13-[address] Juan Alcantara Work Phone: [facility]-Pulmonary Medicine [facility] Start: 10-18-2022 End: 10-22-2022 ambulatory CHARLOTTE OLDER [facility] Start: 10-18-2022 End: 10-18-2022 Phys/qhp telephone evaluation 11-20 min Tomas Figueroa MD Work Phone: [facility] Comment on above: Closed fracture of f irst thoracic vertebra with delayed healing, unspecified fracture morphology, subsequent encounter (Primary Dx); Degenerative disc disease, cervical Start: 10-10-2022 End: 10-10-[address] [facility] Work Phone: Start: 10-10-2022 End: 10-10-2022 Patient encounter procedure [facility] Start: 09-19-2022 End: 09-23-2022 [facility] Start: 09-19-2022 End: 09-19-2022 Phys/qhp telephone evaluation 11-20 min Tomas Figueroa MD Work Phone: [facility] Comment on above: Closed fracture of f irst thoracic vertebra with delayed healing, unspecified fracture morphology, subsequent encounter (Primary Dx) Start: 09-14-2022 End: 09-18-2022 [facility] Start: 09-14-2022 End: 09-14-2022 Phys/qhp telephone evaluation 11-20 min Tomas Figueroa MD Work Phone: [facility] Comment on above: Scoliosis, unspecifi ed scoliosis type, unspecified spinal region (Primary Dx); Closed fracture of first thoracic vertebra with delayed healing, unspecified fracture morphology, subsequent encounter; Degenerative disc disease, cervical; Degeneration of lumbar or lumbosacral intervertebral disc Start: 09-13-[address] [facility] Start: 09-11-2022 End: 09-11-[address] [facility] Work Phone: Start: 09-11-2022 End: 09-11-2022 Patient encounter procedure [facility]MRI - [facility] Start: 09-03-2022 Telephone encounter Denny york MD Work Phone: Internal Medicine [place] Comment on above: early refill Start: 08-29-2022 End: 08-29-2022 Patient encounter procedure Denny Hitchcock MD Work Phone: Internal Medicine [place] Comment on above: DDD (degenerative di sc disease), lumbar (Primary Dx); Encounter for immunization; Chronic low back pain, unspecified back pain laterality, unspecified whether sciatica present; Lumbar radiculopathy; Screening for colon cancer; Essential hypertension Start: 08-22-[address] [facility] Start: 08-09-2022 End: 08-09-2022 [facility] Start: 08-09-2022 End: 08-09-2022 Office outpatient visit 10 minutes Tomas Figueroa MD Work Phone: [facility] Comment on above: Closed fracture of f irst thoracic vertebra with delayed healing, unspecified fracture morphology, subsequent encounter (Primary Dx); Degenerative disc disease, cervical Start: 08-04-2022 End: 08-04-[address] [facility] Work Phone: Start: 08-04-2022 End: 08-04-2022 Patient encounter procedure [facility] Start: 07-26-2022 Refill Denny torrez MD Work Phone: Internal Medicine [place] Comment on above: Refill Request Start: 07-19-2022 Refill Denny torrez MD Work Phone: Internal Medicine [place] Comment on above: Refill Request Start: 07-06-2022 End: 07-07-2022 [facility] Start: 07-04-2022 Refill Denny torrez MD Work Phone: Internal Medicine [place] Comment on above: Refill Request Start: 06-29-2022 End: 06-30-2022 ambulatory [facility] Start: 06-29-2022 End: 06-29-2022 [facility] Start: 06-29-2022 End: 06-29-2022 Office outpatient visit 15 minutes Tomas Figueroa MD Work Phone: [facility] Comment on above: Closed fracture of f irst thoracic vertebra with delayed healing, unspecified fracture morphology, subsequent encounter (Primary Dx) Start: 06-15-2022 End: 06-15-2022 Patient encounter procedure Charlotte Older SPECIAL TECHNICAL OPERATIONS OFFICER.DIRECTOR OF FINANCIAL REPORTING Work Phone: Internal Medicine [place] Comment on above: Essential hypertensi on (Primary Dx); Chronic low back pain, unspecified back pain laterality, unspecified whether sciatica present; Uncomplicated asthma, unspecified asthma severity, unspecified whether persistent; Bronchiectasis without complication (HCC); Lumbar radiculopathy; DDD (degenerative disc disease), lumbar; SVT (supraventricular tachycardia) (HCC); Osteopenia, unspecified location; High risk medication use; Encounter for drug screening Start: 06-02-2022 End: 06-05-2022 ambulatory [facility] Start: 06-02-2022 End: 06-06-2022 Emergency department patient visit [facility] Start: 02-14-2022 End: 02-14-2022 Emergency department patient visit [facility]Emergency Department Start: 12-25-2021 End: 12-25-2021 Patient encounter procedure [facility] Start: 08-30-2021 End: 08-30-[address] MICHAEL MARTINEZ DO [facility] Start: 08-18-2021 End: 08-18-[address] MICHAEL MARTINEZ DO [facility] Procedures Date Procedure Procedure Detail Performing Clinician Start: 03-01-2023 Radiography of thora cic spine Dr. Juan Alcantara Work Phone: Start: 03-01-2023 X-ray of cervical spine Dr. Juan Alcantara Work Phone: Start: 03-01-[address] Juan Alcantara Work Phone: Start: 10-10-2022 Radiologic examinati on of lumbosacral spine, complete, with bending views Start: 10-10-2022 X-ray of cervical spine Start: 09-11-2022 MRI of cervical spine Start: 08-29-2022 INFLUENZA VACCINE QUADRIVALENT 6 MO - 64 YRS IM Denny Hitchcock MD Work Phone: Start: 08-09-2022 Follow-up visit Follow-up DELANO FIGUEROA Start: 08-04-2022 Computed tomography of thoracic spine without contrast Start: 06-03-2022 Adult depression scr eening assessment Tomas Figueroa MD Work Phone: Start: 02-14-2022 CT angiography of ch est with contrast Start: 02-14-2022 Plain chest X-ray Start: 02-14-2022 Influenza Types A,B Direct FA (ISHMAEL) Hysterectomy JUAN Mcgill Comment on above: partial Investigation of transfusion reaction Dr. 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 Juan Alcantara Work Phone: Tonsillectomy DR MICHAEL Adams DO Plan of Treatment Date Care Activity Detail Author Start: 12-05-2025 COLOGUARD (FIT-DNA) COLOGUARD (FIT-D NA) [facility] Start: 12-05-2025 COLORECTAL CANCER SCREENING COLORECTAL CANCER SCREENING [facility] Start: 12-05-2025 Screening for malign ant neoplasm of colon [facility] Start: 10-12-2025 Tetanus vaccination Tetanus: Every 1 0yrs [facility] Start: 10-12-2025 Urine microalbumin profile [facility] Start: 07-05-2025 Influenza vaccination Influenza Vacc ine (#1) [facility] Start: 06-03-2025 DIABET[facility]CREEN [facility] Start: 06-03-2025 Diabetes Screening Diabetes Screenin g [facility] Start: 11-04-2024 Advance Directive Discussion Advance Directive Discussion [facility] Start: 11-04-2024 Medicare Advantage Annual Wellness Visit Medicare Advantage Annual Wellness Visit [facility] Start: 07-05-2024 Covid-19 Vaccine () Covid-19 Vaccine () [facility] Start: 07-05-2024 Influenza vaccination Influenza Vacc ine (#1) [facility] Start: 11-04-2023 Advance Directive Discussion Advance Directive Discussion [facility] Start: 11-04-2023 Depression Assessment Depression Ass essment [facility] Start: 08-29-2023 ANNUAL PCP TEAM [employer] PROFESSOR TAIWO DISEASE VISIT ANNUAL PCP TEAM CHRONIC DISEASE VISIT [facility] Start: 08-29-2023 BP CONTROLLED (<130/80) BP CONTROLLE D (<130/80) [facility] Start: 07-05-2023 Covid-19 Vaccine ( season) Covid-19 Vaccine ( season) [facility] Start: 07-05-2023 Influenza vaccination C [facility] Start: 06-15-2023 ANNUAL PCP TEAM [employer] PROFESSOR TAIWO DISEASE VISIT ANNUAL PCP TEAM CHRONIC DISEASE VISIT [facility] Start: 06-15-2023 BP CONTROLLED (<130/80) BP CONTROLLE D (<130/80) [facility] Start: 06-15-2023 Mammography MAMMOGRAM [facility] Comment on above: Postponed from 12/02 (Declined at this time) Start: 06-03-2023 Depression screening using PHQ-9 (Patient Health Questionnaire 9) score Depression Screening (PHQ-2/9) [facility] Start: 11-04-2022 ADVANCE DIRECTIVE DISCUSSION ADVANCE DIRECTIVE DISCUSSION [facility] Start: 11-04-2022 DEPRESSION ASSESSMENT DEPRESSION ASS ESSMENT [facility] Start: 10-20-2022 End: 10-20-2023 XR Thoracic Spine 3 Views (Standard) XR Thoracic Spine 3 Views (Standard) Imaging Routine Closed fracture of first thoracic vertebra with delayed healing, unspecified fracture morphology, subsequent encounter Expected: 10/20/2022, Expires: 10/20/2023 [facility] Comment on above: Expected: 10/20/2022 , Expires: 10/20/2023 Start: 10-18-2022 End: 10-18-2023 XR Cervical Spine AP/LAT/FLEX/EXT XR Cervical Spine AP/LAT/FLEX/EXT Imaging Routine Degenerative disc disease, cervical Closed fracture of first thoracic vertebra with delayed healing, unspecified fracture morphology, subsequent encounter Expected: 10/18/2022, Expires: 10/18/2023 [facility] Work Phone: Comment on above: Expected: 10/18/2022 , Expires: 10/18/2023 Start: 09-14-2022 End: 09-14-2023 XR Lumbar Spine Standard with Flex/Ext 4+ Views XR Lumbar Spine Standard with Flex/Ext 4+ Views Imaging Routine Closed fracture of first thoracic vertebra with delayed healing, unspecified fracture morphology, subsequent encounter Degeneration of lumbar or lumbosacral intervertebral disc Scoliosis, unspecified scoliosis type, unspecified spinal region Expected: 09/14/2022, Expires: 09/14/2023 [employer] Work Phone: Comment on above: Expected: 09/14/2022 , Expires: 09/14/2023 Start: 09-04-2022 End: 06-29-2023 CT of thoracic spine CT Thoracic Spine Without Contrast Imaging Routine Closed fracture of first thoracic vertebra with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 10/18/22 Team Status: Active Member Role Status Dates Dr. Juan Alcantara MD Primary Care Provider Active Team Status: Inactive Member Role Status Dates Charlotte Valenzuela FLOOR HELPER, FLOOR HELPER-C Other Provider Active Dr. Juan Alcantara MD Primary Care Provider Active TOMASHENRY Attending Provider, Referring Provide r Active Team Status: Inactive Member Role Status Dates Dr. Juan Alcantara MD Primary Care Provider Active TOMASJONATANINDMariana Attending Provider Active TOMAS JONATANINDA Referring Provider Active Team Status: Inactive Member Role Status Dates Dr. Juan Alcantara MD Primary Care Provider, Referrin g Provider Active Dr. Guillermo Mccullough MD Attending Provider Active Team Status: Inactive Member Role Status Dates Dr. Juan Alcantara MD Primary Care Provider Active Dr. Guillermo Mccullough MD Attending Provider, Referring Provider Active Team Status: Inactive Member Role Status Dates Dr. Juan Alcantara MD Primary Care Provider Active Dr. Guillermo Mccullough MD Referring Provider Active HENRY MARIN Attending Provider, Other Provider Ac tive Team Status: Active Member Role Status Dates Dr. Juan Alcantara MD Primary Care Provider Active Dr. Guillermo Mccullough MD Referring Provider, Other Pro vider Active Dr. Eliazar Castano DO Attending Provider Active Stitch Welder Relationship Specialty Start Date End Date Denny Hitchcock MD [address] [place], [place] [id number] PCP - General Internal Medicine 06/15/22 Stitch Welder Relationship Specialty Start Date End Date Denny Hitchcock MD [address] [place], [place] [id number] PCP - General Internal Medicine 06/15/22 Team Status: Inactive Member Role Status Dates Dr. Juan Alcantara MD Primary Care Prov ider, Attending Provider, Referring Provider Active Stitch Welder Relationship Specialty Start Date End Date Denny Hitchcock MD [address] [facility], [place] [address] PCP - General Internal Medicine 06/15/22 Stitch Welder Relationship Specialty Start Date End Date Denny Hitchcock MD [address] [facility], [place] [id number] PCP - General Internal Medicine 06/15/22 Charlotte Beckwith, SPECIAL TECHNICAL OPERATIONS OFFICER.DIRECTOR OF FINANCIAL REPORTING [address] [facility], [place] [id number] Counselor Aide Internal Medicine 10/12/24 Stitch Welder Relationship Specialty Start Date End Date Denny Hitchcock MD [address] [facility], [place] [address] PCP - General Internal Medicine 06/15/22 Charlotte Beckwith, SPECIAL TECHNICAL OPERATIONS OFFICER.DIRECTOR OF FINANCIAL REPORTING [address] [facility], [place] [id number] Counselor Aide Internal Medicine 10/12/24 FOR RECORDS PERTAINING TO PATIENTS WHO ARE OR HAVE BEEN ENROLLED IN A CHEMICAL DEPENDENCY/SUBSTANCEABUSE PROGRAM, SOME INFORMATION MAY BE OMITTED. This clinical summary was aggregated from multiple sources. Caution should be exercised in using it in the provision of clinical care. This summary normalizes information from multiple sources, and as a consequence, information in this document may materially change the coding, format and clinical context of patient data. In addition, data may be omitted in some cases. CLINICAL DECISIONS SHOULD BE BASED ON THE PRIMARY CLINICAL RECORDS. [employer] provides no warranty or guarantee of the accuracy or completeness of information in this document.
[2025-10-28 10:37] LABS: Hematocrit 37.6 % (37-47); Hemoglobin 13.0 g/dL (12.0-15.0); Immature Granulocytes Count 0.060 X10^3/uL (0.0-0.0); Mean Corp Hgb Conc 34.6 g/dL (32-36); Mean Corpuscular Volume 93.5 fL (81-99); Mean Platelet Vol. 9.1 fl (6.2-12.0); NRBC Flagged by Analyzer 0 % (0-5); Platelet Count 217 K/mm3 (150-450); RBC Distribution Width CV 12.2 % (11.6-14.6); RBC Distribution Width SD 42.1 fl (35.1-43.9); Red Blood Count 4.02 M/mm3 (4.2-5.4); White Blood Count 13.1 K/mm3 (4.4-11.0)
[2025-10-28 10:41] LABS: Anion Gap 13 (7-18); BUN 11 mg/dL (4-19); BUN/Creat Ratio 13.8 RATIO (10-20); Calcium,Total 10.0 mg/dL (7.6-11.0); Carbon Dioxide 26.2 mmol/L (20.0-29.0); Chloride 97 mmol/L (96-106); Estimated Creatinine Clearance 55.50 ml/min (50-250); Glucose 104 mg/dL (70-99); Potassium 3.6 mmol/L (3.5-5.1)
--- NOTE | 2025-10-28 11:20 | CT_ITS ---
PROCEDURE: ABDOMEN/PELVIS W IV CONT ONLY N/A REASON FOR EXAM: RIGHT LOWER QUADRANT PAIN WITH POSITIVE ROVSING SI TECHNIQUE: Procedure Code: [id number] Modality: CT Procedure: ABDOMEN/PELVIS W IV CONT ONLY Coronal and Sagittal reconstruction series were provided. CONTRAST: Isovue 370 VOLUME: 75 mL One or more dose reduction techniques were used (e.g., Automated exposure control, adjustment of the mA and/or kV according to patient size, use of iterative reconstruction technique. RADIATION DOSE SUMMARY: CTDlvol: 14.56 mGy DLP: 1374.35 mGycm COMPARISON: None. FINDINGS: Lung bases: Clear Liver: Unremarkable. Gallbladder: Unremarkable. No biliary dilation. Spleen: Unremarkable. Pancreas: Unremarkable. Adrenals: Unremarkable. Kidneys: No hydronephrosis or nephrolithiasis. Bladder: Unremarkable. Reproductive Organs: Supportive devices in the cul-de-sac. Status post hysterectomy. Bowel: Extensive colonic diverticulosis without evidence of acute diverticulitis. No bowel obstruction. Appendix: The appendix is distended measures up to 1.7 cm in diameter and contains several at least 6 appendicoliths. These findings are consistent with acute appendicitis. Lymph nodes: No lymphadenopathy. Vasculature: No aneurysm. Atherosclerotic calcifications. Peritoneum / Retroperitoneum: No free air or free fluid. Bones: No acute bony abnormalities. Multilevel disc changes of the lumbar spine. CT/Abdomen/Pelvis W IV Cont ONLY IMPRESSION: The appendix is distended measures up to 1.7 cm in diameter and contains severa l at least 6 appendicoliths. These findings are consistent with acute appendicitis. No abscess formation. Colonic diverticulosis without evidence of acute diverticulitis. Reading Location: [facility]
--- NOTE | 2025-10-28 11:25 | HP.PCM.SX_ITS ---
HPI - General General Date of Service: 10/28/25 HPI Narrative ISIAH STUART, is a 74 F who presents with right lower quadrant pain starting yesterday did have some nausea with it. This did get worse this morning. Patient not have anything to eat this morning. Patient CT abdomen pelvis showed acute appendicitis blood count 13. Zosyn IV was ordered in the ER. Patient never had any abdominal surgeries only vaginal. [facility] Medical History Chronic bronchitis with productive mucopurulent cough Chronic sinusitis Asthma Hypertension Back pain SVT (supraventricular tachycardia) Home Medications ?Medication ?Instructions ?Recorded ?Last Taken ?Type albuterol sulfate 90 mcg/actuation 2 puff inhalation Q 6H PRN 02/13/23 Unknown History aerosol inhaler amlodipine 10 mg tablet 10 mg PO DAILY 02/13/23 Unkn own History conjugated estrogens 1.25 mg 1.25 mg PO .QO 02/13/23 U nknown History tablet (Premarin) hydrocodone-acetaminophen 5-325mg 1 tab PO Q6H PRN 10/26 Unknown History 5mg-325mg ipratropium 0.5 mg-albuterol 3 mg 3 ml inhalation Q6H PRN 02/13/23 Unknown History (2.5 mg base)/3 mL nebulization soln ipratropium bromide 21 mcg (0.03 2 spray intranasal BI D-TID PRN 02/13/23 Unknown Rx %) nasal spray sinus symptoms #30 mL isosorbide mononitrate 60 mg 60 mg PO BID 02/13/23 Unk nown History tablet,extended release 24 hr metoprolol tartrate 25 mg tablet 25 mg PO DAILY Unknown History potassium chloride 20 mEq 20 meq PO DAILY 02/13/23 Unk nown History tablet,extended release propafenone 150 mg tablet 75 mg PO Q8H 02/13/23 Unknow n History triamterene 37.5 1 cap PO DAILY 02/13/23 Unkn own History mg-hydrochlorothiazide 25 mg capsule Allergy/AdvReac Type Severity Reaction Status Date / Time ibuprofen Allergy Other Verified 10/28/25 10:02 levofloxacin (From Levaquin) Allergy Other Verified 10/28/25 10:02 Seasonal Allergies: Uncoded Allergy Other Verified 10/28/25 10:02 thimerosal Allergy Anaphylaxis Verified 10/28/25 10:02 lidocaine AdvReac Other Verified 10/28/25 10:02 Surgical History Hx of tonsillectomy H/O: hysterectomy Social History Smoking Status: Never smoker alcohol intake: never substance use type: does not use Patient's Goals Of Care . What would you like to achieve or improve as a result of your hospital stay?: R emove appendix Vital Signs Vital Signs Vital Signs: 10/28/25 10:00 Temperature 97.7 F L Temperature Source Oral Pulse Rate 62 Respiratory Rate 16 Blood Pressure 139/62 H Blood Pressure Mean 87 Pulse Ox 98 Oxygen Delivery Method Room Air Weight Weight: 148 lb 5.938 oz Body Mass Index (BMI) 27.1 Physical Exam Const alert, oriented x3 and no apparent distress HEENT normocephalic and head/scalp atraumatic Resp normal respiratory effort Cardio regular rate GI soft to palpation; Negative for non-distended Palpation: tender Positive for RLQ; Negative for guarding Extremity no clubbing, cyanosis or edema Neuro CN's II-XII intact bilaterally Psych mental status grossly normal Results Lab / Micro Data 10/28/25 10:12 10/28/25 10:12 Labs: Laboratory Results - last 24 hr 10/28/25 10:12: WBC 13.1 H, RBC 4.02 L, Hgb 13.0, Hct 37.6, MCV 93.5, MCH 32.3 H , MCHC 34.6, RDW Std Deviation 42.1, RDW Coeff of Hernandez 12.2, Plt Count 217, MPV 9.1, Immature Gran % (Auto) 0.500, Neut % (Auto) 79.2 H, Lymph % (Auto) 9.6 L, Power % (Auto) 7.9, Eos % (Auto) 2.5, Baso % (Auto) 0.3, Absolute Neuts (auto) 10.4 H, Absolute Lymphs (auto) 1.26, Nucleated RBC % 0, Sodium 136, Potassium 3.6, Chloride 97, Carbon Dioxide 26.2, Anion Gap 13, BUN 11, Creatinine 0.80, Estim Creat Clear Calc 55.50, Est GFR (MDRD) Non-Af 78, BUN/Creatinine Ratio 13.8, Glucose 104 H, Calcium 10.0 Assessment & Plan Assessment/Plan (1) Acute appendicitis: PLAN: Plan 1. Discussed procedure laparoscopic appendectomy, possible open along with the risk but not limited to bleeding, infection/abscess, injury to another organ (small bowel, colon, etc.), adhesion, hernia at incision sites, and anesthesia. Patient had no further question this time. Shakila Mccabe M.D. Pager: [phone] [facility] [address] [place] [address], [address] [place] [address] Office: [phone]
--- NOTE | 2025-10-28 11:32 | EKG12_ITS ---
Test Reason : PRE OP Blood Pressure : */* mmHG Vent. Rate : 57 BPM Atrial Rate : 57 BPM P-R Int : 194 ms QRS Dur : 84 ms QT Int : 434 ms P-R-T Axes : 57 16 35 degrees QTcB Int : 422 ms Sinus bradycardia Possible Left atrial enlargement Borderline ECG Confirmed by Hunter Matias ([id number]), primer expeditor and drier BONNIE KING ([id number]) on 10/29/2025 8:30:30 AM Referred By: Confirmed By: Hunter Matias
--- NOTE | 2025-10-28 11:34 | ED.RN ---
called pharmacy to sent antibiotic to OR
--- NOTE | 2025-10-28 11:35 | ED.RN ---
patient to OR prior to admitting to hospital.
--- NOTE | 2025-10-28 11:42 | ED.RN ---
Dr. Mccabe states ok to take pt to surgery. up voiding prior to going down to surgery. daughter with pt. Dr and team aware surgery prep not completed.
--- NOTE | 2025-10-28 12:09 | PRE.ANES_ITS ---
ASA Classification* ASA Classification ASA Classification: 2 and E Assessment & Plan Anesthesia* Anesthesia Assessment Anesthesia Assessment: Discussed sedation and/or anesthesia options, risks, benefits, and alternatives with patient/parents/legal guardian/POA. Questions invited. The patient/parents/legal guardian/POA seems to understand and agrees to proceed with anesthesia plan. Reviewed the physical assessment, medical history, allergy history and patient home medications list prior to surgery/procedure/anesthetic and documented any changes. Performed airway and anesthesia risk assessments. Anesthesia Type Anesthesia Type: General History Source History Obtained from:: Patient and Chart Anesthesia Focused Assessment* Temperature: 98.4 F Pulse Rate: 60 Blood Pressure: 132/53 Respiratory Rate: 16 Pulse Ox: 98 Oxygen Delivery Method: Room Air Airway Assessment Mouth opens: >3 cm Mallampati Score: II Teeth Condition: Chipped/Broken and Missing Neck Range of motion (ROM): Full ROM Labs Anesthesia Preop lab: CBC WBC, (4.4-11.0) 13.1 K/mm3 H Today, 10:12 RBC, (4.2-5.4) 4.02 M/mm3 L Today, 10:12 Hgb, (12.0-15.0) 13.0 g/dL Today, 10:12 Hct, (37-47) 37.6 % Today, 10:12 Plt Count, (150-450) 217 K/mm3 Today, 10:12 CHEMISTRY Potassium, (3.5-5.1) 3.6 mmol/L Today, 10:12 Sodium, (135-145) 136 mmol/L Today, 10:12 BUN, (4-19) 11 mg/dL Today, 10:12 Creatinine, (0.70-1.20) 0.80 mg/dL Today, 10:12 Glucose, (70-99) 104 mg/dL H Today, 10:12 TSH, (0.358-3.74) 2.41 uIU/mL 02/29/24, 10:13 COAG Pre-Assessment Diagnosis/Proposed Procedure Planned Operative Procedure(s): Laparoscopic Appendectomy Anesthesia History 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 When Was Last Pacemaker Check QUESTION #4 FULL TEXT: You/Your Family Experience fever (hyperthermia) with Anesthesia Last Oral Intake Last Oral intake: Last Oral Intake NPO since Meds taken in AM with sips of water? Meds patient instructed to take am of surgery PONV PONV - statistical methods professor: PONV - statistical methods professor Female HX of Motion Sickness HX of N/V After Surgery Non-Smoker Duration of Surgery greater than 60 minutes Number of Risk Factors PONV Score Height & Weight Height & Weight: Anesthesia: Height & Weight Height 5 ft 2 in 10/28/25 10:00 Weight: 67.3 kg 10/28/25 10:22 Body Mass Index (BMI) 27.1 10/28/25 10:22 Respiratory Assessment Respiratory Assessment - statistical methods professor: Respiratory Tract Infection Hx - statistical methods professor Hx Respiratory Tract Infection STOP Sleep Apnea STOP Sleep Apnea - statistical methods professor: STOP Sleep Apnea - statistical methods professor Hx Hypertension Hx Sleep Apnea CPAP BIPAP Do you snore loudly (louder than talking or can be heard Do you often feel tired/ fatigued/ sleepy during daytime? Has anyone observed you stop breathing during sleep? STOP Results QUESTION #5 FULL TEXT : Do you snore loudly (louder than talking or can be heard through closed doors)? Tobacco Use History Tobacco Use History - statistical methods professor: Tobacco Use History - statistical methods professor Tobacco Use Smoking Status Never smoker 10/28/25 10:15 Hx Tobacco Use Years Smoking Packs Smoked per Day Smoking Cessation Date was within the last 15 years Hx Smoking Cessation Date Hx Smoking Cessation Counseling Hematologic Medial History Hematologic Hx - statistical methods professor: Hematologic Medical Hx - calender let off helper Hx of Blood Transfusion Hx of Transfusion in last 3 Months Date of Last Transfusion (if within last 3 months) Ever experience any problems with transfusion(s)? Specify any problems Hx of Preganancy in last 3 Months Nurse Filling Out Transfusion & Questions: Date: Time: Patient unable to answer at this time (ie. confused, unrespo /Reproduction History /Reproductive History - statistical methods professor: /Reproductive Hx- statistical methods professor Hx Now Gestational Age (in weeks): EDC: Hx Hx Para Hx Section SAB Does the father of the baby or his family experience fever w Father of the baby Malignant Hypertension history comment PFSH Medical History Chronic bronchitis with productive mucopurulent cough Chronic sinusitis Asthma Hypertension Back pain SVT (supraventricular tachycardia) Home Medications ?Medication ?Instructions ?Recorded ?Last Taken ?Type albuterol sulfate 90 mcg/actuation 2 puff inhalation Q 6H PRN 02/13/23 Unknown History aerosol inhaler amlodipine 10 mg tablet 10 mg PO DAILY 02/13/23 Unkn own History conjugated estrogens 1.25 mg 1.25 mg PO .QO 02/13/23 U nknown History tablet (Premarin) hydrocodone-acetaminophen 5-325mg 1 tab PO Q6H PRN 10/26 Unknown History 5mg-325mg ipratropium 0.5 mg-albuterol 3 mg 3 ml inhalation Q6H PRN 02/13/23 Unknown History (2.5 mg base)/3 mL nebulization soln ipratropium bromide 21 mcg (0.03 2 spray intranasal BI D-TID PRN 02/13/23 Unknown Rx %) nasal spray sinus symptoms #30 mL isosorbide mononitrate 60 mg 60 mg PO BID 02/13/23 Unk nown History tablet,extended release 24 hr metoprolol tartrate 25 mg tablet 25 mg PO DAILY Unknown History potassium chloride 20 mEq 20 meq PO DAILY 02/13/23 Unk nown History tablet,extended release propafenone 150 mg tablet 75 mg PO Q8H 02/13/23 Unknow n History triamterene 37.5 1 cap PO DAILY 02/13/23 Unkn own History mg-hydrochlorothiazide 25 mg capsule Allergy/AdvReac Type Severity Reaction Status Date / Time ibuprofen Allergy Other Verified 10/28/25 10:02 levofloxacin (From Levaquin) Allergy Other Verified 10/28/25 10:02 Seasonal Allergies: Uncoded Allergy Other Verified 10/28/25 10:02 thimerosal Allergy Anaphylaxis Verified 10/28/25 10:02 lidocaine AdvReac Other Verified 10/28/25 10:02 Surgical History Hx of tonsillectomy H/O: hysterectomy Social History Smoking Status: Never smoker alcohol intake: never substance use type: does not use Review of Systems (Anesthesia) ROS Narrative System reviewed and no additional complaints, except as documented.
[2025-10-28] MEDS: Lactated Ringers 1,000 ML 1000 ML IV (12:20)
--- NOTE | 2025-10-28 12:20 | APP_PTH ---
PATIENT: ISIAH STUART LOC: MS3 U#:[id number] AGE/SX: 74/F ROOM: SC314 RE10/28/[address]: Dr. Shakila Mccabe MD : 1950 BED: 1 DIS: 10/28/2025 SPEC #: [id number] RECD: 10/29/25 07:19 STATUS: NICOLE BILLINGS #: [id number] EVI: 10/28/25 12:[address]: Shakila Mccabe DEPT: SURGICAL PATHOLOGY RECD BY: Kajal Velez ENTERED: 10/29/25 08:50 SP TYPE: APPENDIX OTHR DR: Dr. Jose Espinal MD Tissues: Appendix, NOS Procedures: Surgery Specimen Level III HEADER OPERATION: Laparoscopic, appendectomy PRE-OP DIAGNOSIS: Acute appendicitis TISSUE SUBMITTED: A. Appendix MICROSCOPIC DIAGNOSIS A. Appendix, appendectomy: - Acute appendicitis, acute serositis - see note. - Fecalith. Note: The full-thickness defect noted grossly demonstrates a thinned wall and only slight acute inflammation. Histologic features definitive for perforation are not observed. MICROSCOPIC DESCRIPTION Slides are reviewed. GROSS DESCRIPTION A. The specimen is designated appendix and consists of a 9.2 cm in length appendix with diameter ranging from 1.0 to 1.5 cm. ?The serosal surface is loja-brown with pale loja-white exudate continuous with the proximal staple margin. ?Toward the distal end is a 1.2 x 0.5 cm full-thickness defect exuding loja-brown possible fecal material. ?The attached mesoappendix is loja-yellow to loja-brown and unremarkable. ?The specimen is inked as follows: Proximal staple line margin = blue; defect = orange. ?Sectioning reveals loja-brown cut surfaces with a lumen dilated up to 1.5 cm, filled with fecal material and a possible fecalith measuring 1.1 cm in greatest dimension. ?RS 2 Cassettes: A1, bisected tip of appendix A2, passenger relations representative cross-sections of appendix to include resection margin and possible exudative area and defect EN/OSU 11/01/2025 CPT: 33253
[2025-10-28] MEDS: TAZOBACTAM IV (12:29)
[2025-10-28] MEDS: PIPERACILLIN IV (12:29)
[2025-10-28] MEDS: fentaNYL 100 MCG/2 ML Ampul IV (12:33)
[2025-10-28] MEDS: Bupiv/Epi 0.25% 30 ML Vial (12:51)
--- NOTE | 2025-10-28 13:07 | DCINST_ITS ---
Discharge Instructions Diet Discharge Diet: Light diet - advance as tolerated Activity Discharge Activity: May Not Drive (while taking narcotic pain medications.) May shower in (days): 1 Lifting Restrictions: no lifting >20 lbs x 2 wks, no strenuous exercise for 4 wks Dressing / Incision Call your doctor if your incision/area has: Continuous Slow Oozing, Sudden Increased Bleeding, Increased Pain/ Swelling, Increased Redness, Foul Smelling Discharge and Swelling at the incision site Call your doctor if you observe: Fever of 101 or Higher Remove Dressing in: 2 days Cleanse incision/area with: Soap & Water Additional Dressing/Incision Instructions:: Steri-Strips will fall off in 7 to 10 days, if they do not fall off okay to remove after 10 days. Follow Up Care Please Follow Up With: Shakila Mccabe MD When: Call the office for a follow-up appointment 2 weeks; after 5 PM and on the weekends call [phone] with any concerns. Test Results: Test results from this visit will be discussed in further detail at your follow- up appointment, if applicable. Discharge Plan Admission Attending Provider: Shakila Mccabe Primary Care Provider: Jose Espinal Instructions Print Language: Turkmen Discharge Orders/Prescriptions Prescriptions: Continued albuterol sulfate 90 mcg/actuation HFA aerosol inhaler 2 puff inhalation Q6H PRN ipratropium-albuterol 0.5 mg-3 mg(2.5 mg base)/3 mL solution for nebulization 3 ml inhalation Q6H PRN Premarin 1.25 mg tablet 1.25 mg PO .QO isosorbide mononitrate 60 mg tablet extended release 24 hr 60 mg PO BID propafenone 150 mg tablet 75 mg PO Q8H amlodipine 10 mg tablet 10 mg PO DAILY triamterene-hydrochlorothiazid 37.5-25 mg capsule 1 cap PO DAILY potassium chloride 20 mEq tablet extended release 20 meq PO DAILY metoprolol tartrate 25 mg tablet 25 mg PO DAILY ipratropium bromide 21 mcg (0.03 %) spray,non-aerosol 2 spray intranasal BID-TID MDD 4 sprays PRN (Reason: sinus symptoms) Qty: 30 2RF Rx Instructions: administer into each nostril hydrocodone-acetaminophen 5-325 mg tablet 1 tab PO Q6H PRN (Reason: pain) 3 Days Qty: 7 0RF Referrals / Follow Up: Jose Espinal MD [Primary Care Provider, Family Practice] Disposition Disposition (needs filled in before D/C Order can be placed): Home, Self Care
--- NOTE | 2025-10-28 13:07 | PCM.OPRPT ---
Operative Report (Standard) Operative Information Date of Procedure: 10/28/25 Pre-Operative Diagnosis: Acute appendicitis Post-Operative Diagnosis: Same Surgery/Procedure Performed: Laparoscopic appendectomy die attaching machine tender: No Type of Anesthesia: General/Supplemental RN Documented Start/Stop Times: Operation Date: 10/28/25 12:20 Case Time Anesthesia Start 10/28/25 12:12 Into Room 10/28/25 12:12 Procedure Start 10/28/25 12:35 Procedure End 10/28/25 13:07 Procedure Start Time: 12:35 Procedure Stop Time: 13:07 Select all DRAINS/GRAFTS/IMPLANTS that apply: None Special Medications: Zosyn 4.5 g IV x 1 Estimated Blood Loss: 5 cc Specimen collected: Yes Description of specimen(s) removed: Appendix Description of surgery: Indications: 74-year-old female presented to the ER with new right lower quadrant pain last night and worse this morning. On workup she was found to have acute appendicitis on CT and a leukocytosis of 13. Patient was started on antibiotics in the ER for acute appendicitis-Zosyn 4.5 g IV x 1 Description of the procedure: The patient was placed on operating table in supine position. General anesthesia was induced. A timeout was completed verifying correct patient, procedure, position and special equipment prior to beginning procedure. Abdomen was prepped and draped in usual sterile fashion. Incision was made in the natural skin line above the umbilicus with a 15 blade scalpel. The fascia was elevated and incised. Entry into the peritoneum was confirmed visually and no bowel was noted in the vicinity of the incision. The Castañeda trocar was placed under direct vision. Abdomen insufflated with a pressure of 12-15 mmHg. Patient tolerated insertion well. The scope was inserted and the abdomen inspected. No injuries from initial trocar placement were noted. Minimal amount of fluid was seen in the right lower quadrant. An direct visualization 2 -5 mm trocars were placed one above the symphysis pubis and below the hairline and one in the left lower quadrant lateral to the rectus muscle. Care is taken to avoid injury to the bladder and inferior epigastric vessels. The table was placed in Trendelenburg position with the right side elevated. The appendix was grasped with atraumatic grasper and elevated. It was noted to be dilated/inflamed. A window was developed in the mesoappendix at the point between the base of the appendix and the cecum. An endoscopic 45 mm linear cutting stapler blue load was then used to divide and staple the base of the appendix. Enseal was used to divide the mesoappendix The appendix was withdrawn into the Castañeda trocar after being placed endoscopically retrieval bag. Appendix was sent to pathology. The appendiceal stump was then irrigated and hemostasis was assured. Fluid was suctioned no other pathology was identified. Secondary trochars were removed under direct visualization. No bleeding was noted trocar sites. The laparoscope withdrawn and the umbilical trocar removed. The abdomen was allowed to collapse. Local anesthesia of 30 mL of 0.25% Marcaine with epi was used at the incision sites. The umbilical trocar site was closed with the [id number] 0 Vicryl suture. The skin was closed using sutures of 4-0 Monocryl and Steri-Strips. The patient was extubated. The patient tolerated the procedure well and was taken to the postanesthesia care unit in satisfactory condition. Surgical Findings: See operative report Complications Complications: No
--- NOTE | 2025-10-28 13:29 | PCM.POST.ANE ---
Anesthesia: Postop Eval I Current Vital Signs Temperature: 97.4 F Pulse Rate: 74 Blood Pressure: 110/52 Respiratory Rate: 16 Pulse Ox: 99 Oxygen Delivery Method: Room Air Assessment Airway patent: Yes Spontaneous unlabored respirations: Yes Mental status: Awake and Calm nausea: No Vomiting: No Anesthesia Complication: No Fluid Hydration Crystalloid volume administer (ml): 1,000 Total IV fluid infused: 1,000 Progress Note Post-operative progress note: Comfortable in PACU Anesthesia document: Postop Eval 1 completed: Yes
--- NOTE | 2025-10-28 13:39 | PCM.POSTANE2 ---
Anesthesia Postop Eval I Sum Postop Eval Completion status Anesthesia document: Postop Eval 1 completed: Yes Anesthesia Postop Eval I Summary Anesthesia Postop Eval I Summary: Anesthesia Postop Eval I: Assessment Summary Airway patent Yes 10/28/25 13:30 Spontaneous unlabored Yes 10/28/25 13:30 respirations Mental status Awake,Calm 10/28/25 13:30 nausea No 10/28/25 13:30 Vomiting No 10/28/25 13:30 Anesthesia Postop Eval I: Fluid Summary Crystalloid volume administer 1,000 10/28/25 13:30 (ml) Colloids volume administered ( ml) Blood Product volume administered (ml) Total IV fluid infused 1,000 10/28/25 13:30 Anesthesia Postop Eval I: Summary Notes Anesthesia Complication No 10/28/25 13:30 Anesthesia Complication Comment: Post-operative progress note Comfortable in 10/28/25 13:30 PACU Anesthesia: Postop Eval II Evaluation Mental status: Awake and Calm Pain Level: 1 nausea: No Vomiting: No Complications Anesthesia Complication: No
--- OUTSIDE RECORDS SUMMARY | 2025-10-28 14:14 | XMS RPT_ITS | CCD ---
Author Organization [facility] Care Team Providers Care Clinical Laboratory Medical Director Name Role Phone TEDDY HILL, JUAN Mcgill Primary Care Physician Spencer HILL, Denny Talbert Primary Care Provider Older CLEAN OUT DRILLER HELPER, Charlotte Primary Care Provider [phone] SYSTEM, PROVIDER NOT IN Referring Unavaila ble [...] NOT IN Primary Care Unavaila ble Older CLEAN OUT DRILLER HELPER, Charlotte Primary Care Provider [phone] Older CLEAN OUT DRILLER HELPER, [place] Primary Care Provider [phone] OLDER, [place] Primary Care Unavailable FAMILIA DUTTON [...] Attending UnavailDr. Juan Dunlap Primary Care Provider [phone] Dr. Juan Alcantara Referring Provider Dr. Guillermo Mccullough Attending Provider Dr. Guillermo [...] Care Unavailable Juan Alcantara Referring Unavailable Ji RN LPN CNA, Jalyn Attending Unavailable Teddy, Juan Primary Care [...] Denny Hitchcock MD Primary Care Provider [phone] Amena 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.CLEAN OUT DRILLER HELPER, Charlotte M Unavailable JUAN ALCANTARA MD Attending Unavailable JUAN ALCANTARA MD Primary Care Unavailable JUAN ALCANTARA MD Attending Unavailable JUAN ALCANTARA MD Primary Care Unavailable Allergies Allergy Classification Reported Allergen(s) Allergy Type Date of Onset Reaction(s) Facility Adrenergic Agonists (1 source) EPINEPHrine; Translations: [epinephrine] Drug Allergy Tachycardia (finding) [facility] Lidocaine (1 source) Lidocaine; Translations: [lidocaine] Drug Allergy Tachycardia (finding) [facility] Quinolones (antibiotic) (1 source) levoFLOXacin; Translations: [levofloxacin] Drug Allergy Tendinitis (disorder) [facility] Thimerosal (1 source) Thimerosal; Translations: [thimerosal topical] Drug Allergy Swelling (morphologic abnormality), Itching (finding) [facility] Comment on above: Thimeresol (20 sources) levoFLOXacin; Translations: [levofloxacin] Drug Allergy 2 Tendinitis (disorder), Other: See Comments, Unknown, Other (See Comments) [facility] (20 sources) Thimerosal; Translations: [thimerosal topical] Drug Allergy 2 Swelling (morphologic abnormality), Itching (finding), Unknown, Hives, Itching, Swelling [facility] Comment on above: Thimeresol (12 sources) Benzodiazepine; Translations: [BENZODIAZEPINES ] Propensity to adverse reactions to drug 2 Other (See Comments) [facility] (8 sources) dilTIAZem; Translations: [DILTIAZEM HCL] Drug Allergy 2 GI Intolerance [facility] (8 sources) Estrogens, Conjugated (SNF); Translations: [CONJUGATED ESTROGENS] Drug Allergy 2 Other (See Comments) [facility] (8 sources) Famotidine; Translations: [FAMOTIDINE] Drug Allergy 2 GI Intolerance [facility] (8 sources) guaiFENesin; Translations: [GUAIFENESIN] Drug Allergy 2 Other (See Comments) [facility] (8 sources) Lisinopril; Translations: [LISINOPRIL] Drug Allergy 2 GI Intolerance [facility] (8 sources) Ct: Iodinated Contrast- Oral And Iv Dye; Translations: [CT: IODINATED CONTRAST- ORAL AND IV DYE] Propensity to adverse reactions to drug 2 Other (See Comments) [facility] (4 sources) Ibuprofen Drug Allergy 3 Other [facility] (8 sources) Lidocaine; Translations: [lidocaine] Drug Allergy 3 Tachycardia (finding) [facility] (5 sources) Seasonal Allergies: Uncoded; Translations: [Seasonal Allergies: Uncoded] Allergy to substance 3 Other [facility] (4 sources) EPINEPHrine; Translations: [epinephrine] Drug Allergy Tachycardia (finding) [facility] ([facility] source) Ibuprofen Drug Allergy 3 [facility] (1 source) levoFLOXacin Drug Allergy 2 [facility] (1 source) Lidocaine Drug Allergy 3 [facility] (1 source) Thimerosal Drug Allergy 2 [facility] Medications Current Medications Medication Drug Class(es) [...] 1 tablet by mouth every six hours [place] 325- 5 mg oral tablet Dose = 1 tab(s), Oral, q6hr, # 120 tab(s), 0 Refill(s), Pharmacy: [facility], Fibromyalgia Injury of cervical spine, 156.8, cm, 04/06/25 13:39:00 EDT, Height, 68.9, kg, 04/06/25 13:39:00 EDT, Dosing Weight Start Date: 04/06/25 Stop Date: 05/06/25 Status: Ordered Quantity: 120.0 Unit: tab(s) Repeat number: 1 Indications: Unspecified injury at unspecified level of cervical spinal cord, initial encounter; Fibromyalgia; Start: 10-08-2024 End: 11-07-2024 take 1 tablet by mouth every six hours [place] 325- 5 mg oral tablet Dose = 1 tab(s), Oral, q6hr, # 120 tab(s), 0 Refill(s), Pharmacy: [facility], Injury of cervical spine Fibromyalgia, 156.8, cm, 10/08/24 13:43:00 EST, Height, 66.8, kg, 10/08/24 13:43:00 EST, Dosing Weight Start Date: 10/08/24 Stop Date: 11/07/24 Status: Ordered Start: 04-09-2024 End: 05-09-2024 take 1 tablet by mouth every six hours [place] 325- 5 mg oral tablet Dose = 1 tab(s), Oral, q6hr, # 120 tab(s), 0 Refill(s), Pharmacy: [facility], Injury of cervical spine Fibromyalgia, 156.8, cm, 04/09/24 14:07:00 EDT, Height, 67.1, kg, 04/09/24 14:07:00 EDT, Dosing Weight Start Date: 04/09/24 Stop Date: 05/09/24 Status: Ordered Start: 07-30-2023 End: 09-26-2023 take 1 tablet by mouth every six hours [place] 325- 5 mg oral tablet Dose = 1 tab(s), Oral, q6hr, # 120 tab(s), 0 Refill(s), Pharmacy: [facility], Injury of cervical spine Fibromyalgia, 158, [...] mouth twice daily as needed for pain [place] 325- 5 mg oral tablet Dose = 1 tab(s), Oral, BID, PRN for pain, # 60 tab(s), 0 Refill(s), Pharmacy: [facility], Fibromyalgia, 160, cm, 08/16/21 14:45:00 EDT, Height, 60.5, kg, 08/16/21 14:45:00 EDT, Dosing Weight Start Date: 08/21/21 Stop Date: 09/20/21 Status: Ordered Start: 07-18-2021 End: 08-17-2021 take 1 tablet by mouth twice daily as needed for pain [place] 325- 5 mg oral tablet Dose = 1 tab(s), Oral, BID, PRN for pain, # 60 tab(s), 0 Refill(s), [facility] [address] Fibromyalgia, 160, cm, 06/07/21 13:54:00 [...] Do not start before November 03, 2022. [id number] actuat albuterol 0.09 mg/actuat metered dose [...] QID, # 1,080 mL, 3 Refill(s), Pharmacy: [facility], 160, cm, 06/07/21 13:54:00 EDT, Height, kg, 06/07/21 13:54:00 EDT, Dosing Weight Start Date: 07/21/21 Status: Ordered Quantity: 1080.0 Unit: mL Repeat number: 4 Start: 07-21-2021 take 1 dose by inhal ation four times daily albuterol-ipratropium 2.5 mg-0.5 mg/3 mL inhalation solution Dose = 3 mL, Inhalation, QID, # 1,080 mL, 3 Refill(s), Pharmacy: [facility], 160, cm, 06/07/21 13:54:00 [...] # 90 tab(s), 2 Refill(s), [facility]: [facility] Anxiety, generalized, 160, cm, 06/07/21 13:54:00 [...] PLEASE, # 90 tab(s), 1 Refill(s), Pharmacy: [facility], 156.8, cm, 01/07/25 13:29:00 EST, Height, [...] 0 Refill(s), 04/16/25 2:27:00 PM EDT, Pharmacy: [facility], Fibromyalgia Inflammatory arthritis, 156.8, cm, 04/06/25 [...] 0 Refill(s), 08/26/23 12:04:00 PM EDT, Pharmacy: [facility], Well adult exam Asthma, 158, cm, [...] cap(s), 0 Refill(s), 09/06/21 17:51:00 EDT, Pharmacy: [facility], Bronchitis, 160, cm, 08/16/21 14:45:00 EDT, [...] 1 tab(s), Oral, qDay, fax script to [facility], # 84 tab(s), 3 Refill(s) Start Date: [...] # 90 cap(s), 0 Refill(s), [facility]acy: [facility], Left lumbar radiculopathy Osteoarthritis of lumbar [...] on above: Take 1 capsule by mo [facility] once daily. ipratropium bromide 0.021 mg/actuat metered [...] attention, # 100 tab(s), 0 Refill(s), Pharmacy: [facility], 156.8, cm, 04/09/24 14:07:00 EDT, Height, [...] attention, # 4.9 gram(s), 0 Refill(s), Pharmacy: [facility] (Now [facility]), Scoliosis of thoracolumbar spine Chronic back pain, 159, cm, 08/01/23 11:07:00 EDT, Height, kg, 08/01/23 11:07:00 EDT, Dosing Weight Start Date: 08/01/23 Status: Ordered nitroglycerin (N ITROLINGUAL) 400 mcg/spray spray Nitrolingual 400 mcg/spray [place] by translingual route. Active nitroglycerin (N ITROLINGUAL) 400 mcg/spray spray Nitrolingual 400 mcg/spray [place] by translingual route. 0 Active nitroglycerin (N ITROLINGUAL) 400 mcg/spray spray Place 1 (one) spray under the tongue every 5 (five) minutes as needed for chest pain . 0 Active Comment on above: Nitrolingual 400 mcg /spray [place] by translingual route. potassium chloride 10 meq extended release oral capsule (20 sources) Start: 11-26-2023 End: 05-11-2026 potassium chloride 10 mEq oral capsule, extended release Dose : 20 mEq = 2 cap(s), Oral, qDay, # 200 cap(s), 3 Refill(s), Pharmacy: [facility], Asthma Bronchitis, 156.8, cm, 04/06/25 13:39:00 [...] qDay, # 180 cap(s), 3 Refill(s), Pharmacy: [facility] ([facility]), Asthma Bronchitis, 158, cm, 10/18/22 14:00:00 EST, Height, kg, 10/18/22 14:00:00 EST, Dosing Weight Start Date: 10/30/22 Stop Date: 10/25/23 Status: Ordered Start: 08-15-2021 End: 08-10-2022 potassium chloride 10 mEq or al capsule, extended release Dose : 20 mEq = 2 cap(s), Oral, qDay, # 180 cap(s), 3 Refill(s), Pharmacy: [facility], Asthma Bronchitis, 160, cm, [...] day, # 90 tab(s), 1 Refill(s), Pharmacy: [facility], Fibromyalgia Inflammatory arthritis, 156.8, cm, 04/06/25 13:39:00 EDT, Height, kg, 04/06/25 13:39:00 EDT, Dosing Weight Start Date: 04/06/25 Stop Date: 10/03/25 Status: Ordered Quantity: 90.0 Unit: tab(s) Repeat number: 2 Indications: Fibromyalgia; Unspecified osteoarthritis, unspecified site; Start: 03-01-2021 End: 02-24-2022 predniSONE 5 mg oral tablet Dose : 5 mg = 1 tab(s), Oral, qDay, # 90 tab(s), 3 Refill(s), Pharmacy: [facility], 157.5, cm, 03/01/21 13:12:00 [...] TID, # 270 tab(s), 0 Refill(s), Pharmacy: [facility], 160, cm, 06/07/21 13:54:00 EDT, Height, kg, 06/07/21 13:54:00 EDT, Dosing Weight Start Date: 07/03/21 Status: Ordered triamcinolone acetonide 0.25 mg/ml topical cream (12 sources) Corticosteroid Start: 02-08-2021 triamcinolone 0.025% topical cream Apply 1 trini, Topical, BID, # 60 gram(s), 0 Refill(s), Pharmacy: [facility] [address] Cream, 158.5, cm, 02/08/21 16:08:00 EDT, Height, 62.8, kg, 02/08/21 16:08:00 EDT, Dosing Weight Start Date: 02/08/21 Status: Ordered Quantity: 60.0 Unit: g Repeat number: 1 Start: 02-08-2021 triamcinolone 0.025% topical cream Apply 1 trini, Topical, BID, # 60 gram(s), 0 Refill(s), Pharmacy: [facility] [address] Cream, 158.5, cm, 02/08/21 [...] received, # 28 tab(s), 0 Refill(s), Pharmacy: [facility], 156.8, cm, 10/08/24 13:43:00 EST, Height, [...] source) Taking high risk medication; Translations: [Other predatory animal exterminator (current) drug therapy] Episodic Other aftercare (2 sources) Other penitentiary (current) drug therapy; Translations: [Other predatory animal exterminator (current) drug therapy] Onset: 04-09-2024 Episodic Other [...] Manuel 04-06-2025 Amphetamine (u) Negative Normal Negative [facility] Comment on above: Performed By: #### E SR, URIC, GFR, MG, LIPID, CBC, ANEU, FERR, TSH, VIDH, CMP, ADIFF, CRP, FT4 #### [place] [address] Barbiturate (u) Negative Normal Negative [facility] Comment on above: Performed By: #### E SR, URIC, GFR, MG, LIPID, CBC, ANEU, FERR, TSH, VIDH, CMP, ADIFF, CRP, FT4 #### [address] [address] Benzodiazepine (u) Negative Normal Negative [facility] Comment on above: Performed By: #### E SR, URIC, GFR, MG, LIPID, CBC, ANEU, FERR, TSH, VIDH, CMP, ADIFF, CRP, FT4 #### [address] [address] Cannabinoid (u) Negative Normal Negative [facility] Comment on above: Performed By: #### E SR, URIC, GFR, MG, LIPID, CBC, ANEU, FERR, TSH, VIDH, CMP, ADIFF, CRP, FT4 #### [address] [address] Cocaine Ql (U) Negative Normal Negative [facility] Comment on above: Performed By: #### E SR, URIC, GFR, MG, LIPID, CBC, ANEU, FERR, TSH, VIDH, CMP, ADIFF, CRP, FT4 #### [place] [address] Methadone Ql (U) Negative Normal Negative [facility] Comment on above: Performed By: #### E SR, URIC, GFR, MG, LIPID, CBC, ANEU, FERR, TSH, VIDH, CMP, ADIFF, CRP, FT4 #### [address] [address] Opiate (u) Positive Abnormal Negative [facility] Comment on above: Performed By: #### E SR, URIC, GFR, MG, LIPID, CBC, ANEU, FERR, TSH, VIDH, CMP, ADIFF, CRP, FT4 #### [address] [address] PCP (u) Negative Normal Negative [facility] Comment on above: Performed By: #### E SR, URIC, GFR, MG, LIPID, CBC, ANEU, FERR, TSH, VIDH, CMP, ADIFF, CRP, FT4 #### [place] [address] Urine Drugs screened: See Below Normal [facility] Comment on above: Result Comment: This drug [...] VIDH, CMP, ADIFF, CRP, FT4 #### [address] [address] .Auto Diffon 10-08-2024 Basophil, Absolute 0.0 10 3/mcL Normal 0.0-0.2 [facility] Comment on above: Performed By: #### E SR, URIC, GFR, MG, LIPID, CBC, ANEU, FERR, TSH, VIDH, CMP, ADIFF, CRP, FT4 #### [place] [id number] Basophils/100 WBC (Bld) 0.6 % Normal 0.0-2.5 [facility] Comment on above: Performed By: #### E SR, URIC, GFR, MG, LIPID, CBC, ANEU, FERR, TSH, VIDH, CMP, ADIFF, CRP, FT4 #### [address] [address] Eosinophil, Absolute 0.4 10 3/mcL Normal 0.0-0.7 [facility] Comment on above: Performed By: #### E SR, URIC, GFR, MG, LIPID, CBC, ANEU, FERR, TSH, VIDH, CMP, ADIFF, CRP, FT4 #### [address] [address] Eosinophils/100 WBC (Bld) 5.2 % Normal 0.0-7.0 [facility] Comment on above: Performed By: #### E SR, URIC, GFR, MG, LIPID, CBC, ANEU, FERR, TSH, VIDH, CMP, ADIFF, CRP, FT4 #### [address] [address] Lymphocyte, Absolute 1.5 10 3/mcL Normal 0.9-4.3 [facility] Comment on above: Performed By: #### E SR, URIC, GFR, MG, LIPID, CBC, ANEU, FERR, TSH, VIDH, CMP, ADIFF, CRP, FT4 #### [address] [address] Lymphocytes/100 WBC (Bld) 20.7 % Normal 20.0-40.0 [facility] Comment on above: Performed By: #### E SR, URIC, GFR, MG, LIPID, CBC, ANEU, FERR, TSH, VIDH, CMP, ADIFF, CRP, FT4 #### [address] [address] Monocyte, Absolute 0.7 10 3/mcL Normal 0.1-1.4 [facility] Comment on above: Performed By: #### E SR, URIC, GFR, MG, LIPID, CBC, ANEU, FERR, TSH, VIDH, CMP, ADIFF, CRP, FT4 #### [address] [address] Monocytes/100 WBC (Bld) 10.2 % Normal 2.0-13.0 [facility] Comment on above: Performed By: #### E SR, URIC, GFR, MG, LIPID, CBC, ANEU, FERR, TSH, VIDH, CMP, ADIFF, CRP, FT4 #### [address] [address] Neutrophils/100 WBC (Bld) 63.3 % Normal 50.0-75.0 [facility] Comment on above: Performed By: #### E SR, URIC, GFR, MG, LIPID, CBC, ANEU, FERR, TSH, VIDH, CMP, ADIFF, CRP, FT4 #### [address] [address] .GFRon 10-08-2024 GFR 95 ml/min/1.73sqm [facility] Comment on above: Result Comment: GFR [...] VIDH, CMP, ADIFF, CRP, FT4 #### [address] [address] GFR Non- 78 ml/min/1.73sqm Normal [facility] Comment on above: Result Comment: GFR Population [...] VIDH, CMP, ADIFF, CRP, FT4 #### [address] [address] .NEUABSon 10-08-2024 Neutrophil, Absolute 4.5 10 3/mcL Normal 2.3-8.1 [facility] Comment on above: Performed By: #### E SR, URIC, GFR, MG, LIPID, CBC, ANEU, FERR, TSH, VIDH, CMP, ADIFF, CRP, FT4 #### [address] [address] CBCon 10-08-2024 Erythrocyte distribution width (RBC) [Ratio] 13.4 % Normal 11.5-15.5 [facility] Comment on above: Performed By: #### E SR, URIC, GFR, MG, LIPID, CBC, ANEU, FERR, TSH, VIDH, CMP, ADIFF, CRP, FT4 #### [address] [address] Hematocrit (Bld) [Volume fraction] 43.2 % Normal 34.0-46.0 [facility] Comment on above: Performed By: #### E SR, URIC, GFR, MG, LIPID, CBC, ANEU, FERR, TSH, VIDH, CMP, ADIFF, CRP, FT4 #### [address] [address] Hgb 14.6 G/dL Normal 12.0-16.0 [facility] Comment on above: Performed By: #### E SR, URIC, GFR, MG, LIPID, CBC, ANEU, FERR, TSH, VIDH, CMP, ADIFF, CRP, FT4 #### [address] [address] MCH (RBC) [Entitic mass] 32.7 pg Normal 27.0-33.0 [facility] Comment on above: Performed By: #### E SR, URIC, GFR, MG, LIPID, CBC, ANEU, FERR, TSH, VIDH, CMP, ADIFF, CRP, FT4 #### [address] [address] MCHC 33.7 G/dL Normal 32.0-36.0 [facility] Comment on above: Performed By: #### E SR, URIC, GFR, MG, LIPID, CBC, ANEU, FERR, TSH, VIDH, CMP, ADIFF, CRP, FT4 #### [address] [address] MCV (RBC) [Entitic vol] 96.9 fL Normal 80.0-99.0 [facility] Comment on above: Performed By: #### E SR, URIC, GFR, MG, LIPID, CBC, ANEU, FERR, TSH, VIDH, CMP, ADIFF, CRP, FT4 #### [address] [address] Platelet 205 10 3/mcL Normal 150-450 [facility] Comment on above: Performed By: #### E SR, URIC, GFR, MG, LIPID, CBC, ANEU, FERR, TSH, VIDH, CMP, ADIFF, CRP, FT4 #### [address] [address] Platelet mean volume (Bld) [Entitic vol] 8.2 fL Normal 6.6-10.5 [facility] Comment on above: Performed By: #### E SR, URIC, GFR, MG, LIPID, CBC, ANEU, FERR, TSH, VIDH, CMP, ADIFF, CRP, FT4 #### [address] [address] RBC 4.46 10 6/mcL Normal 4.10-5.30 [facility] Comment on above: Performed By: #### E SR, URIC, GFR, MG, LIPID, CBC, ANEU, FERR, TSH, VIDH, CMP, ADIFF, CRP, FT4 #### [address] [address] WBC 7.1 10 3/mcL Normal 4.5-10.8 [facility] Comment on above: Performed By: #### E SR, URIC, GFR, MG, LIPID, CBC, ANEU, FERR, TSH, VIDH, CMP, ADIFF, CRP, FT4 #### [address] [address] CMPon 10-08-2024 Albumin Level 3.9 G/dL Normal 3.4-4.8 [facility] Comment on above: Performed By: #### E SR, URIC, GFR, MG, LIPID, CBC, ANEU, FERR, TSH, VIDH, CMP, ADIFF, CRP, FT4 #### [address] [address] Albumin/Globulin [Mass ratio] 1.3 {ratio} Normal 1.1-2.5 [facility] Comment on above: Performed By: #### E SR, URIC, GFR, MG, LIPID, CBC, ANEU, FERR, TSH, VIDH, CMP, ADIFF, CRP, FT4 #### [address] [address] ALP [Catalytic activity/Vol] 65 U/L Normal 40-135 [facility] Comment on above: Performed By: #### E SR, URIC, GFR, MG, LIPID, CBC, ANEU, FERR, TSH, VIDH, CMP, ADIFF, CRP, FT4 #### [address] [address] ALT [Catalytic activity/Vol] 29 U/L Normal 14-59 [facility] Comment on above: Performed By: #### E SR, URIC, GFR, MG, LIPID, CBC, ANEU, FERR, TSH, VIDH, CMP, ADIFF, CRP, FT4 #### [address] [address] AST [Catalytic activity/Vol] 25 U/L Normal 10-40 [facility] Comment on above: Performed By: #### E SR, URIC, GFR, MG, LIPID, CBC, ANEU, FERR, TSH, VIDH, CMP, ADIFF, CRP, FT4 #### [address] [address] Bili Total 0.4 mg/dL Normal 0.2-1.0 [facility] Comment on above: Result Comment: Use of this assay is not recommended for patients undergoing treatment with eltrombopag due to the potential for falsely elevated results. Performed By: #### E SR, URIC, GFR, MG, LIPID, CBC, ANEU, FERR, TSH, VIDH, CMP, ADIFF, CRP, FT4 #### [address] [address] BUN/Creatinine Ratio 18 ratio Normal 7-27 [facility] Comment on above: Performed By: #### E SR, URIC, GFR, MG, LIPID, CBC, ANEU, FERR, TSH, VIDH, CMP, ADIFF, CRP, FT4 #### [address] [address] Calcium [Mass/Vol] 9.9 mg/dL Normal 8.4-10.2 [facility] Comment on above: Performed By: #### E SR, URIC, GFR, MG, LIPID, CBC, ANEU, FERR, TSH, VIDH, CMP, ADIFF, CRP, FT4 #### [address] [address] Chloride [Moles/Vol] 97 mmol/L Low 98-107 [facility] Comment on above: Performed By: #### E SR, URIC, GFR, MG, LIPID, CBC, ANEU, FERR, TSH, VIDH, CMP, ADIFF, CRP, FT4 #### [address] [address] CO2 [Moles/Vol] 29 mmol/L Normal 23-31 [facility] Comment on above: Performed By: #### E SR, URIC, GFR, MG, LIPID, CBC, ANEU, FERR, TSH, VIDH, CMP, ADIFF, CRP, FT4 #### [address] [address] Creatinine [Mass/Vol] 0.73 mg/dL Normal 0.55-1.02 [facility] Comment on above: Result Comment: Test ing performed on Siemens Dimension EXL analyzer using a modified kinetic Kendra technique. Performed By: #### E SR, URIC, GFR, MG, LIPID, CBC, ANEU, FERR, TSH, VIDH, CMP, ADIFF, CRP, FT4 #### [address] [address] Electrolyte Balance 10.0 mEq/L Normal 4.0-15.0 [facility] Comment on above: Performed By: #### E SR, URIC, GFR, MG, LIPID, CBC, ANEU, FERR, TSH, VIDH, CMP, ADIFF, CRP, FT4 #### [place] [address] Globulin 3.1 G/dL Normal [facility] Comment on above: Performed By: #### E SR, URIC, GFR, MG, LIPID, CBC, ANEU, FERR, TSH, VIDH, CMP, ADIFF, CRP, FT4 #### [address] [address] Glucose [Mass/Vol] 78 mg/dL Low 83-110 [facility] Comment on above: Performed By: #### E SR, URIC, GFR, MG, LIPID, CBC, ANEU, FERR, TSH, VIDH, CMP, ADIFF, CRP, FT4 #### [address] [address] Potassium [Moles/Vol] 4.7 mmol/L Normal 3.5-5.1 [facility] Comment on above: Performed By: #### E SR, URIC, GFR, MG, LIPID, CBC, ANEU, FERR, TSH, VIDH, CMP, ADIFF, CRP, FT4 #### [address] [address] Sodium [Moles/Vol] 136 mmol/L Normal 136-145 [facility] Comment on above: Performed By: #### E SR, URIC, GFR, MG, LIPID, CBC, ANEU, FERR, TSH, VIDH, CMP, ADIFF, CRP, FT4 #### [place] [address] Total Protein 7.0 G/dL Normal 6.4-8.2 [facility] Comment on above: Performed By: #### E SR, URIC, GFR, MG, LIPID, CBC, ANEU, FERR, TSH, VIDH, CMP, ADIFF, CRP, FT4 #### [place] [address] Urea nitrogen [Mass/Vol] 13 mg/dL Normal 7-18 [facility] Comment on above: Performed By: #### E SR, URIC, GFR, MG, LIPID, CBC, ANEU, FERR, TSH, VIDH, CMP, ADIFF, CRP, FT4 #### [place] [address] CRPon 10-08-2024 C-Reactive Protein 0.8 mg/dL High 0.0-0.3 [facility] Comment on above: Performed By: #### E SR, URIC, GFR, MG, LIPID, CBC, ANEU, FERR, TSH, VIDH, CMP, ADIFF, CRP, FT4 #### [address] [address] ESRon 10-08-2024 Erythrocyte Sed Rate 8 mm/hr Normal 0-30 [facility] Comment on above: Performed By: #### E SR, URIC, GFR, MG, LIPID, CBC, ANEU, FERR, TSH, VIDH, CMP, ADIFF, CRP, FT4 #### [address] [address] Kathleen 10-08-2024 Ferritin [Mass/Vol] 119.0 ng/mL Normal 8.0-252.0 [facility] Comment on above: Performed By: #### E SR, URIC, GFR, MG, LIPID, CBC, ANEU, FERR, TSH, VIDH, CMP, ADIFF, CRP, FT4 #### [facility] [address] [place], [place] [address] FT4on 10-08-2024 Free T4 [Mass/Vol] 1.14 ng/dL Normal 0.76-1.46 [facility] Comment on above: Performed By: #### E SR, URIC, GFR, MG, LIPID, CBC, ANEU, FERR, TSH, VIDH, CMP, ADIFF, CRP, FT4 #### [place] [id number] [place], [place] [address] LABORATORYOrdered By: SYSTEM SYSTEM on 10-08-2024 25-hydroxyvitamin [...] 10-08-2024 Cholesterol [Mass/Vol] 225 mg/dL High 0-200 [facility] Comment on above: Result Comment: Chol esterol Reference Interval: Less than 200 Desirable 200-239 Borderline high risk 240 and above High risk Performed By: #### E SR, URIC, GFR, MG, LIPID, CBC, ANEU, FERR, TSH, VIDH, CMP, ADIFF, CRP, FT4 #### [address] [address] Cholesterol in HDL [Mass/Vol] 93 mg/dL High 40-60 [facility] Comment on above: Performed By: #### E SR, URIC, GFR, MG, LIPID, CBC, ANEU, FERR, TSH, VIDH, CMP, ADIFF, CRP, FT4 #### [address] [address] Cholesterol in LDL [Mass/Vol] 106 mg/dL Normal 0-130 [facility] Comment on above: Performed By: #### E SR, URIC, GFR, MG, LIPID, CBC, ANEU, FERR, TSH, VIDH, CMP, ADIFF, CRP, FT4 #### [address] [address] Triglyceride [Mass/Vol] 128 mg/dL Normal 0-150 [facility] Comment on above: Result Comment: Trig lyceride Reference Interval: Less than 150 Normal 150-199 Borderline high risk 200-499 High risk 500 or higher Very high risk Performed By: #### E SR, URIC, GFR, MG, LIPID, CBC, ANEU, FERR, TSH, VIDH, CMP, ADIFF, CRP, FT4 #### [address] [address] MGon 10-08-2024 Magnesium [Mass/Vol] 1.9 mg/dL Normal 1.8-2.4 [facility] Comment on above: Performed By: #### E SR, URIC, GFR, MG, LIPID, CBC, ANEU, FERR, TSH, VIDH, CMP, ADIFF, CRP, FT4 #### [address] [address] TSHon 10-08-2024 TSH Qn 1.07 m[IU]/L Normal 0.36-3.74 [facility] Comment on above: Performed By: #### E SR, URIC, GFR, MG, LIPID, CBC, ANEU, FERR, TSH, VIDH, CMP, ADIFF, CRP, FT4 #### [address] [place], [place] [address] URICon 10-08-2024 Uric Acid Lvl 4.1 mg/dL Normal 2.6-6.2 [facility] Comment on above: Performed By: #### E SR, URIC, GFR, MG, LIPID, CBC, ANEU, FERR, TSH, VIDH, CMP, ADIFF, CRP, FT4 #### [address] [place] [address] VIDHon 10-08-2024 Vit. D 25-Hydroxy 56.2 ng/mL Normal [facility] Comment on above: Result Comment: Inte rpretive Values Based on Total 25([place]) Vitamin D: Deficient <20 ng/mL Insufficient 20 - <30 ng/mL Sufficient 30-100 ng/mL Performed By: #### E SR, URIC, GFR, MG, LIPID, CBC, ANEU, FERR, TSH, VIDH, CMP, ADIFF, CRP, FT4 #### [address] [address] LABORATORYOrdered By: Kaitlin Sheth on 04-09-2024 Amphetamines [...] Manuel 04-09-2024 Amphetamine (u) Negative Normal Negative [facility] ([place]) Comment on above: Performed By: #### U DRUG #### [address] [address] Barbiturate (u) Negative Normal Negative [facility] ([place]) Comment on above: Performed By: #### U DRUG #### [address] [address] Benzodiazepine (u) Negative Normal Negative [facility] ([place]) Comment on above: Performed By: #### U DRUG #### [address] [address] Cannabinoid (u) Negative Normal Negative [facility] ([place]) Comment on above: Performed By: #### U DRUG #### [address] [address] Cocaine Ql (U) Negative Normal Negative [facility] ([place]) Comment on above: Performed By: #### U DRUG #### [address] [address] Methadone Ql (U) Negative Normal Negative [facility] ([place]) Comment on above: Performed By: #### U DRUG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 first thoracic vertebra with delayed healing, unspecified fracture morphology, subsequent encounter- Primary documented in this encounter [facility] note* Diagnosis Closed fracture of first thoracic vertebra with delayed healing, unspecified fracture morphology, subsequent encounter- Primary Degenerative disc disease, cervical documented in this encounter [facility] note* Diagnosis Onset Date Resolution Status Chronic bronchitis with productive mucopurulent cough chronic Chronic sinusitis [facility] Work Phone: Evaluation note* Diagnosis Encounter for screening mammogram for breast cancer documented in this encounter [facility] note* Diagnosis Encounter for screening mammogram for breast cancer documented in this encounter [facility] note* Diagnosis Encounter for screening mammogram for breast cancer documented in this encounter [facility] course Narrative No data available for this section [facility] Hospital Discharge instructions No data available for this section [facility] Progress note No data available for this section [facility] Reason for referral (narrative)* Diagnostic Procedure Only (Routine) - Pending Review Specialty Diagnoses / Procedures Referred By Angelo lo Referred To Contact [facility] Diagnoses Encounter for screening mammogram for breast cancer Procedures LING SCREENING SCREENING MAMMOGRAPHY BI 2-VIEW BREAST INC Denny Lopez MD [address] [place] [address] [facility] [address] [place] [address] Referral ID Status Reason Start Date Expiration Date Visits Requested Visits Authorized [id number] Pending Review Auto-Generat ed Referral 06/19/2023 07/18/2024 [facility] Diagnostic Procedure Only (Routine) - New Request Specialty Diagnoses / Procedures Referred By Angelo lo Referred To Contact [facility] Diagnoses Encounter for screening mammogram for breast cancer Procedures LING SCREENING W JUAN SCREENING DIGITAL BREAST TOMOSYNTHESIS BI SCREENING MAMMOGRAPHY BI 2-VIEW BREAST INC Denny Lopez MD [address] [place] [address] [facility] [address] [place] [address] Referral ID Status Reason Start Date Expiration Date Visits Requested Visits Authorized [id number] New Request Auto-Generat ed Referral 05/27/2024 06/26/2025 1 1 [facility] Summary Purpose Family History No Family History [...] Yes February 14, 2022 2:59pm Power of Supervisor [place] Yes February 14 2:59pm Latest Code Status on File Date Activated Date Inactivated Comments 06/02/2022 6:57 PM 06/05/2022 7:54 PM Latest Code Status on File Code Status Date Activated Date Inactivated Comments Full Code 06/02/2022 6:57 PM 06/05/2022 7:54 PM Advance Directive Response Recorded Date/ Time Living Will Yes February 14, 2022 1:59pm Power of Supervisor [place] Yes February 14 1:59pm Chief Complaint and [...] MD [address] [place] [place] [address] Referral ID Status Reason Start Date Expiration Date Visits Requested Visits Authorized [id number] Pending Review Specialty Services Required/Pat ient's Best Interest 09/16/2023 1 1 Specialty Diagnoses / Procedures Referred By Contac t Referred To Contact Radiology Diagnoses Closed fracture of first thoracic vertebra with delayed healing, unspecified fracture morphology, subsequent encounter Procedures CT Thoracic Spine Without Contrast Tomas Figueroa MD [address] [place] [address] Referral ID Status Reason Start Date Expiration Date V isits Requested Visits Authorized [id number] New Request 09/04/2022 09/04/2023 1 1 Additional Source Comments INFORMATION SOURCE (unrecogn ized section and content) DATE CREATED AUTHOR 06/27/2020 [facility] DATE CREATED AUTHOR AUTHOR'S ORGANIZ ATION 06/28/2020 [facility] DATE CREATED AUTHOR AUTHOR'S ORGANIZ ATION 10/13/2021 [facility] DATE CREATED AUTHOR AUTHOR'S ORGANIZ ATION 07/07/2022 [facility] DATE CREATED AUTHOR AUTHOR'S ORGANIZ ATION 09/21/2022 [facility] DATE CREATED AUTHOR AUTHOR'S ORGANIZ ATION 10/25/2022 [facility] DATE CREATED AUTHOR AUTHOR'S ORGANIZ ATION 03/07/2024 [facility] DATE CREATED AUTHOR AUTHOR'S ORGANIZ ATION 04/11/2024 [facility] DATE CREATED AUTHOR AUTHOR'S ORGANIZ ATION 04/11/2025 [facility] DATE CREATED AUTHOR AUTHOR'S ORGANIZ ATION 05/29/2025 [facility] Goals (unrecognized section and content) Goals may be documented in a n alternate section Source Comments (unrecognize d section and content) In the event this informatio n is protected by the Federal Confidentiality of Alcohol and Drug Abuse Patient Records regulations: The Federal rules restrict any use of the information to criminally investigate or prosecute any alcohol or drug abuse patient.[facility] the event this information is protected by the Federal Confidentiality of Alcohol and Drug Abuse Patient Records regulations: The Federal rules restrict any use of the information to criminally investigate or prosecute any alcohol or drug abuse patient.[facility] Health[facility] the event this information is protected by the Federal Confidentiality of Alcohol and Drug Abuse Patient Records regulations: The Federal rules restrict any use of the information to criminally investigate or prosecute any alcohol or drug abuse patient.[facility] the event this information is protected by the Federal Confidentiality of Alcohol and Drug Abuse Patient Records regulations: The Federal rules restrict any use of the information to criminally investigate or prosecute any alcohol or drug abuse patient.[facility] Health[facility] the event this information is protected by the Federal Confidentiality of Alcohol and Drug Abuse Patient Records regulations: The Federal rules restrict any use of the information to criminally investigate or prosecute any alcohol or drug abuse patient.[facility] the event this information is protected by the Federal Confidentiality of Alcohol and Drug Abuse Patient Records regulations: The Federal rules restrict any use of the information to criminally investigate or prosecute any alcohol or drug abuse patient.[facility] Health[facility] the event this information is protected by the Federal Confidentiality of Alcohol and Drug Abuse Patient Records regulations: The Federal rules restrict any use of the information to criminally investigate or prosecute any alcohol or drug abuse patient.[facility] the event this information is protected by the Federal Confidentiality of Alcohol and Drug Abuse Patient Records regulations: The Federal rules restrict any use of the information to criminally investigate or prosecute any alcohol or drug abuse patient.[facility] the event this information is protected by the Federal Confidentiality of Alcohol and Drug Abuse Patient Records regulations: The Federal rules restrict any use of the information to criminally investigate or prosecute any alcohol or drug abuse patient.[facility] the event this information is protected by the Federal Confidentiality of Alcohol and Drug Abuse Patient Records regulations: The Federal rules restrict any use of the information to criminally investigate or prosecute any alcohol or drug abuse patient.[facility] Health[facility] the event this information is protected by the Federal Confidentiality of Alcohol and Drug Abuse Patient Records regulations: The Federal rules restrict any use of the information to criminally investigate or prosecute any alcohol or drug abuse patient.[facility] Reason for Visit (unrecogniz ed section and [...] Care Teams (unrecognized sec tion and content) Clinical Laboratory Medical Director Relationship Specialty Start Date End Date Denny Hitchcock MD [address] [place] [address] PCP - General Internal Medicine 06/15/22 Clinical Laboratory Medical Director Relationship Specialty Start Date End Date Charlotte Valenzuela CNP [address] [place] [id number] PCP - General Nurse Practitioner 06/29/22 Clinical Laboratory Medical Director Relationship Specialty Start Date End Date Denny Hitchcock MD [address] [place] [address] PCP - General Internal Medicine 06/15/22 Clinical Laboratory Medical Director Relationship Specialty Start Date End Date Charlotte Valenzuela CNP [address] [facility] [place] [address] PCP - General Nurse Practitioner 06/29/22 Clinical Laboratory Medical Director Relationship Specialty Start Date End Date Denny Hitchcock MD [address] [place] [address] PCP - General Internal Medicine 06/15/22 Clinical Laboratory Medical Director Relationship Specialty Start Date End Date Denny Hitchcock MD [facility] [place] [address] PCP - General Internal Medicine 06/15/22 Clinical Laboratory Medical Director Relationship Specialty Start Date End Date Charlotte Valenzuela CNP [address] [facility] [place] [address] PCP - General Nurse Practitioner 06/29/22 Clinical Laboratory Medical Director Relationship Specialty Start Date End Date Older, PEDRO Porter [address] [place] [address] PCP - General Nurse Practitioner 06/29/22 Clinical Laboratory Medical Director Relationship Specialty Start Date End Date OlderCharlotte CNP [address] [place] [address] PCP - General Nurse Practitioner 06/29/22 10/18/22 Team Status: Active Member Role Status Dates Dr. Juan Alcantara MD Primary Care Provider Active Team Status: Inactive Member Role Status Dates Charlotte Valenzuela RN LPN CNA, RN LPN CNA-C Other Provider Active Dr. Juan Alcantara MD [...] Dr. Eliazar Castano DO Attending Provider Active Clinical Laboratory Medical Director Relationship Specialty Start Date End Date Denny Hitchcock MD [address] [place], [place] [id number] PCP - General Internal Medicine 06/15/22 Clinical Laboratory Medical Director Relationship Specialty Start Date End Date Denny Hitchcock MD [address] [place], [place] [id number] PCP - General Internal Medicine 06/15/22 Team Status: Inactive Member Role Status Dates Dr. Juan Alcantara MD Primary Care Prov ider, Attending Provider, Referring Provider Active Clinical Laboratory Medical Director Relationship Specialty Start Date End Date Denny Hitchcock MD [address] [facility] [place], [place] [id number] PCP - General Internal Medicine 06/15/22 Clinical Laboratory Medical Director Relationship Specialty Start Date End Date Denny Hitchcock MD [address] [facility] [place], [place] [id number] PCP - General Internal Medicine 06/15/22 Charlotte Beckwith, 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.[employer] DRILLER HELPER [address] [facility] [place], [place] [id number] Lawn Mower Internal Medicine 10/12/24 Clinical Laboratory Medical Director Relationship Specialty Start Date End Date Denny Hitchcock MD [address] [facility] [place], [place] [id number] PCP - General Internal Medicine 06/15/22 Charlotte Beckwith, 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.CLEAN OUT DRILLER HELPER [address] [facility] [place], [place] [address] Lawn Mower Internal Medicine 10/12/24 FOR RECORDS PERTAINING TO [...] BE BASED ON THE PRIMARY CLINICAL RECORDS. [employer] provides no warranty or guarantee of the accuracy or completeness of information in this document.
[2025-10-28] MEDS: Lactated Ringers 1,000 ML 100 ML IV (15:04)
== END 2025-10-28 17:56 | disposition home or self-care (01) ==
LOC: ED 11:36 → SDC 11:41 → ACINP 11:42 → MS3 11-01 09:31 → SDC 11-01 09:31 → MS3 11-01 09:31
PROVIDERS: Admitting Provider Surgery; Emergency Provider Emergency Medicine; PCP Family Medicine; Visit Provider Surgery
PROC: 0DTJ4ZZ Resection of Appendix, Percutaneous Endoscopic Approach (ICD-10-PCS; CPT 44970; principal; 2025-10-28 12:00)
DX: K35.209 Acute appendicitis with generalized peritonitis, without abscess, unspecified as to perforation (principal); J42 Unspecified chronic bronchitis; I10 Essential (primary) hypertension; J45.909 Unspecified asthma, uncomplicated; I47.10 Supraventricular tachycardia, unspecified; Z79.899 Other long term (current) drug therapy; R00.1 Bradycardia, unspecified
CPT/HCPCS: 44970; 00840; 74177; 80048; 85025; 88304; 93005; 96374; 96375; 96376; 99284; Q9967; A4216; J2405